=== PATIENT | male | born 1940 | race Caucasian/White ===

== ENCOUNTER 2024-02-12 16:49 | Inpatient (IN) | payer OTHER, SELFPAY ==
[2024-02-12] VITALS (10 sets, daily range): BP systolic 112–155; BP diastolic 72–88; BMI 36.8
[2024-02-12 12:09] LABS: % Basophils 0.4 % (0-2); % Eosinophils 0.5 % (0-6); % Immature Granulocytes 0.4 % (0-0.5); % Monocytes 7.9 % (1.7-9.3); % Neutrophils 78.8 % (42.2-75.2); Absolute Lymphocytes 0.9 10^3/uL (1.2-3.4); Absolute Monocytes 0.6 10^3/uL (0.1-0.6); Absolute Neutrophils 5.8 10^3/uL (1.4-6.5); Hematocrit 37.5 % (39.0-52.0); Hemoglobin 12.8 g/dL (13.0-18.0); Mean Corp Hgb Conc. 34.1 g/dL (33.0-37.0); Mean Corpuscular Hgb 34.2 pg (27.0-31.0); Mean Corpuscular Volume 100.3 fL (80.0-94.0); Mean Platelet Volume 10.2 fL (7.4-10.4); Nucleated Red Blood Cells % 0 % (-); Platelet Count 150 10^3/uL (130-400); Red Blood Cell Count 3.74 10^6/uL (4.70-6.10); Red Cell Dist. Width 12.8 % (11.5-14.5); White Blood Cell Count 7.3 10^3/uL (4.8-10.8)
[2024-02-12 12:32] LABS: ALT (SGPT) 17 U/L (0-50); AST (SGOT) 22 U/L (17-59); Albumin 4.5 g/dl (3.5-5.0); Alkaline Phosphatase 72 U/L (38-126); Blood Urea Nitrogen 20 mg/dl (9-20); Calcium 9.6 mg/dl (8.4-10.2); Carbon Dioxide 22 mmol/L (22-30); Chloride 106 mmol/L (98-107); Glucose 213 mg/dl (70-99); Lipase 144 U/L (23-300); Potassium 4.4 mmol/L (3.5-5.1); Sodium 136 mmol/L (135-145); Total Bilirubin 1.6 mg/dl (0.2-1.3); Total Protein 7.5 g/dl (6.3-8.2); eGFR > 60.00
--- NOTE | 2024-02-12 14:25 | ED.GENMED ---
Addendum entered and electronically signed by Yong Armstrong MD 02/12/24 17:22:
Patient did have 2 further brief pauses with lightheadedness. These were texted to cardiology
Original Note:
History of Present Illness
<JOHNATHON Espinoza Last Filed: 02/12/24 14:47>
General
Chief Complaint: Heart Rate Problem
Source: patient
Exam Limitations: none
Time Seen by Provider: 02/12/24 14:02
Travel History
Have you had any contact with someone who has COVID-19?: No
Do you have any symptoms of coronavirus? Fever > 100 degrees, chills, cough, shortness of breath, sore throat, loss of taste or smell, muscle aches, or headache?: No
History of Present Illness
History of Present Illness:
83 year old male presents with lightheadedness upon awaking this morning with nausea. He had several episodes of vomiting. He had a loose stool earlier this morning. Since waiting in the waiting room he states he feels much better. No chest pain
or shortness of breath. History of hyperlipidemia BPH. He is not anticoagulated. No fevers or cough. No other pains at this time
Past History
<JOHNATHON Espinoza Last Filed: 02/12/24 14:47>
Past History
ED Past Medical History: HTN, Hypercholesterolemia (BPH, renal calculi, arthritis, degenerative joint disease, osteoarthritis, chronic low back pain,) and Other (Kidney stones)
ED Past Surgical History: Appendectomy, Orthopedic (Right total knee) and Other (Bilateral cataracts, kidney stone extraction)
Social History
Tobacco: Non-smoker
Alcohol: Occasional
Drug: None
Personal:
Living: with family
Employment: Employed
Family History
Family History: Other (nc)
Phy Exam
<JOHNATHON Espinoza Last Filed: 02/12/24 14:47>
Physical Exam
Physical Exam:
General: Well-appearing male no acute respiratory distress
HEENT: Normocephalic atraumatic
Heart: Regular rate and rhythm no murmur
Lungs: Clear no wheeze or rales
Abdomen soft nontender nondistended no guarding or rebound normal bowel sounds
Extremities: No cyanosis
Course
<Suresh Adams PA-C - Last Filed: 02/12/24 14:47>
Orders/Labs/Results
Orders:
Orders
02/12/24 11:50
ECG [Electrocardiogram (*1)] Urgent
Reason for Study: Vertigo / Dizzy
EKG- Treatment ONCE
IV Insert/Care/Rem.- Treatment PRN
02/12/24 11:57
Complete Blood Count/With Diff Urgent
Comprehensive Metabolic Panel Urgent
Lipase Urgent
TSH Reflex To Free T4 Urgent
Comment: ADD ON
02/12/24 14:40
Troponin I Urgent
0.9% Sodium Chloride 500 ml [Nss] 500 ml IV BOLUS
02/12/24 14:42
Add On- LAB Urgent
Tests Added?: tsh reflex to t4
Abnormal Lab Results
02/12/24
11:57
RBC 3.74 L 10^6/uL
(4.70-6.10)
Hgb 12.8 L g/dL
(13.0-18.0)
Hct 37.5 L %
(39.0-52.0)
MCV 100.3 H fL
(80.0-94.0)
MCH 34.2 H pg
(27.0-31.0)
Absolute Lymphs (auto) 0.9 L 10^3/uL
(1.2-3.4)
Neutrophils % 78.8 H %
(42.2-75.2)
Lymphocytes % 12.0 L %
(20.5-51.1)
Glucose 213 H mg/dl
(70-99)
Total Bilirubin 1.6 H mg/dl
(0.2-1.3)
02/12/24 11:57
02/12/24 11:57
Vital Signs
Initial and Last Documented VS:
Initial Vital Signs
Temp Pulse Resp BP Pulse Ox
97.8 F 78 18 155/78 99
02/12/24 11:45 02/12/24 11:45 02/12/24 11:45 02/12/24 11:45 02/12/24 11:45
Last Documented Vital Signs
Temp Pulse Resp BP Pulse Ox
97.8 F 78 18 155/78 97
02/12/24 11:45 02/12/24 11:45 02/12/24 11:45 02/12/24 11:45 02/12/24 13:59
<Yong Armstrong MD - Last Filed: 02/12/24 15:04>
Orders/Labs/Results
Orders:
Orders
02/12/24 11:50
ECG [Electrocardiogram (*1)] Urgent
Reason for Study: Vertigo / Dizzy
EKG- Treatment ONCE
IV Insert/Care/Rem.- Treatment PRN
02/12/24 11:57
Complete Blood Count/With Diff Urgent
Comprehensive Metabolic Panel Urgent
Lipase Urgent
TSH Reflex To Free T4 Urgent
Comment: ADD ON
02/12/24 14:40
Troponin I Urgent
0.9% Sodium Chloride 500 ml [Nss] 500 ml IV BOLUS
02/12/24 14:42
Add On- LAB Urgent
Tests Added?: tsh reflex to t4
Abnormal Lab Results
02/12/24
11:57
RBC 3.74 L 10^6/uL
(4.70-6.10)
Hgb 12.8 L g/dL
(13.0-18.0)
Hct 37.5 L %
(39.0-52.0)
MCV 100.3 H fL
(80.0-94.0)
MCH 34.2 H pg
(27.0-31.0)
Absolute Lymphs (auto) 0.9 L 10^3/uL
(1.2-3.4)
Neutrophils % 78.8 H %
(42.2-75.2)
Lymphocytes % 12.0 L %
(20.5-51.1)
Glucose 213 H mg/dl
(70-99)
Total Bilirubin 1.6 H mg/dl
(0.2-1.3)
02/12/24 11:57
02/12/24 11:57
Vital Signs
Initial and Last Documented VS:
Initial Vital Signs
Temp Pulse Resp BP Pulse Ox
97.8 F 78 18 155/78 99
02/12/24 11:45 02/12/24 11:45 02/12/24 11:45 02/12/24 11:45 02/12/24 11:45
Last Documented Vital Signs
Temp Pulse Resp BP Pulse Ox
97.8 F 78 18 155/78 97
02/12/24 11:45 02/12/24 11:45 02/12/24 11:45 02/12/24 11:45 02/12/24 13:59
<Suresh Adams PA-C - Last Filed: 02/12/24 14:47>
MDM/Problems Addressed
Differential Diagnosis Includes:
Lightheaded sensation with nausea and vomiting earlier. No chest pain. While in the room the patient stated he felt lightheaded and there was a visible pause on the monitor. He resumed into a sinus rhythm after the pause. There is no syncopal
episode. Will check labs. Keep on monitor. Start hydration.
<Suresh Adams PA-C - Last Filed: 02/12/24 14:47>
*Critical Care Note
Total Time (30-74mins, 75-104mins- exclusive of procedures): Not Applicable
<Suresh Adams PA-C - Last Filed: 02/12/24 14:47>
Update Note
Update Note:
Patient will be kept on the monitor. He had a 7-second pause that the patient felt as lightheaded and was witnessed by this provider in the room. Discussed with emergency room attending who spoke with cardiology, Dr. Matias, who is aware. Admit
to hospitalist.
ED Attending Note
<Suresh Adams PA-C - Last Filed: 02/12/24 14:47>
-
Portions of this chart may have been created with voice recognition software.� Occasional wrong word or��sound alike� substitutions may have occurred due to the inherent limitations of voice recognition software.
<Yong Armstrong MD - Last Filed: 02/12/24 15:04>
ED Attending Note
Patient seen and examined by attending physician: Yes
I performed the substantive portion of visit, reviewed & personally made and approve the management plan that is documented in note by myself or IRENA.: Yes
ED Attending Note:
83-year-old male with an episode of lightheadedness this morning. Some nausea and vomiting. While in the room with our physician portfolio assistant had prolonged ventricular block probably 7 to 8 seconds. Clinically stable at this time.
Exam: Nontoxic warm and dry grossly nonfocal perfusing well. Regular rate and rhythm with moderate midsystolic murmur. Lungs are clear and equal. Abdomen nontender. Extremity with some superficial varicosities bilaterally and mild nonpitting
edema.
Impression is prolonged high degree heart block. Rhythm strip was texted to cardiology. Patient will be admitted to the medical service with cardiac involvement
Discharge Plan
Departure
Patient Disposition: Admit
Date of Disposition: 02/12/24
Time of Disposition: 14:46
Admit to: Telemetry
Presentation/result/management discussed w/ accepting MD/DO: Hospitalist
Discharge Problem:
Pre-syncope
Prescriptions:
No Action
tamsulosin 0.4 MG capsule
0.4 mg PO DAILY
oxycodone-acetaminophen 5 MG/325 MG tablet
0.5 tab PO DAILY
fluoxetine 20 MG capsule
40 mg PO DAILY
PreserVision AREDS-2 1 EACH capsule
1 ea PO BID
rosuvastatin 5 MG tablet
5 mg PO DAILY
Referrals:
Arron Nye MD [Family Provider] -
Interventions
Interventions:
*Risk Screen - Suicide Last Done: 02/12/24 11:45
*General Assessment Last Done: 02/12/24 11:45
*Neglect/Abuse Screening Last Done: 02/12/24 11:45
ED- Fall Risk Assessment Last Done: 02/12/24 13:59
CW-Tijisn-Sqpojgnlqt Assessment Last Done: 02/12/24 13:59
ED- Cardiac Assessment Last Done: 02/12/24 13:59
ED- Pulmonary Assessment Last Done: 02/12/24 13:59
Discharge Date and Time
Print Language: CZECH
[2024-02-12] MEDS: NSS 500 IV (15:14)
--- NOTE | 2024-02-12 15:54 | HPS.HSE ---
Family Physician
-
Family Physician: Arron Nye
Chief Complaint
-
syncope
History of Present Illness
The patient is an 83 yo male with PMH significant for HTN, HLD, BPH, chronic low back pain with right foot drop, presents to ED due to episode of near-syncope followed by nausea and vomiting, not feeling well. No CP, no palpitations, no recent
weight change, no further vomiting in ED, no abdominal pain, no dysuria, no fevers. He was found to have a 7 second pause in the ED on tele while seeing the PA, and was symptomatic at that time with lightheadedness/dizziness that has resolved.
Cardiology saw pt in ED, and plan will be for pacemaker likely Wednesday, IVU admission recommended.
ED txt: IVF 500 mL
Medical History
Past Medical History
Past Medical History: Reports HTN (Essential), Hypercholesterolemia and Other (BPH, renal calculi, arthritis, degenerative joint disease, osteoarthritis, chronic low back pain, Kidney stones)
Additional Past Medical History:
Echo 12/2022:
Normal left ventricular size and systolic function. No regional wall motion
abnormalities are seen. LV ejection fraction is 65% by Padron's method of
discs. Mild concentric left ventricular hypertrophy. Diastolic function normal.
Mitral valve is thickened and calcified with decreased excursion of leaflets.
Mild mitral stenosis with mean pressure gradient of 4 mmHg. There is mitral
annular calcification. Trace mitral regurgitation.
Calcified, trileaflet aortic valve with decreased excursion of leaflets. Mild
to moderate aortic stenosis. Peak and mean gradients of 34 and 23 mmHg,
respectively. Estimated LESLIE is 1.3 cm2., using an LVOT of 2.0 cm.. Trace aortic
regurgitation.
Past Surgical History: Reports Appendectomy, Orthopedic (right total knee) and Other (Bilateral cataracts, kidney stone extraction)
Social History
Tobacco: Non-smoker
Alcohol: Occasional
Drug: None
Personal:
Living: With Family
Employment: Employed
Family History
Family History: Other (no CAD, no stroke in family)
Allergies / Home Medications
Allergies reflects when Allergies were last updated in [employer].
Home Medications with original date entered in [employer]
Allergy/Medication List:
Allergies
Allergy/AdvReac Type Severity Reaction Status Date / Time
No Known Allergies Allergy Verified 02/12/24 11:45
Home Medications
tamsulosin 0.4 mg capsule 0.4 mg PO DAILY Urinary issue 11/24/18
fluoxetine 20 mg capsule 40 mg PO DAILY 06/13/21
oxycodone-acetaminophen 5 mg-325 mg tablet 0.5 tab PO DAILY 06/13/21
rosuvastatin 5 mg tablet 5 mg PO DAILY 06/13/21
vit C 250 mg-vit E 90 mg-zinc 40 mg-copper 1 [id number] capsule (PreserVision AREDS-2) 1 ea PO BID 06/13/21
Review of Systems
-
A 12 point ROS was completed and negative except as noted: Yes
Physical Exam
Vital Signs
Vital Signs
Temp Pulse Resp BP Pulse Ox
97.8 F 86 21 117/74 95
02/12/24 11:45 02/12/24 15:00 02/12/24 15:00 02/12/24 15:00 02/12/24 15:00
Physical Exam
General: Well Developed, Well Nourished, No Apparent Distress, Comfortable and Conversant
HEENT: NormoCephalic, Anicteric, Moist mucous membranes and Atraumatic
Respiratory: Clear
Cardiac: S1/S2
GI: Soft, Non Tender and Non Distended
Musculoskeletal: No Clubbing, No Cyanosis and No Edema
Skin: Warm and Dry
Neuro: AO x 3 and No Motor Deficits
Laboratory Results
-
02/12/24 11:57
02/12/24 11:57
Laboratory Results
Total Bilirubin 1.6 mg/dl (0.2-1.3) H 02/12/24 11:57
AST 22 U/L (17-59) 02/12/24 11:57
ALT 17 U/L (0-50) 02/12/24 11:57
Alkaline Phosphatase 72 U/L (38-126) 02/12/24 11:57
Lipase 144 U/L (23-300) 02/12/24 11:57
Data Reviewed
-
Medical Tests (Nuc Med, Echo, EKG etc): Image Personally Visualized and interpreted and Report Reviewed by me (RBBB, PACs)
Impression/Plan
-
IMPRESSION:The patient is an 83 yo male with PMH significant for HTN, HLD, BPH, chronic low back pain with right foot drop, presents to ED due to episode of near-syncope followed by nausea and vomiting, not feeling well. No CP, no palpitations, no
recent weight change, no further vomiting in ED, no abdominal pain, no dysuria, no fevers. He was found to have a 7 second pause in the ED on tele while seeing the PA, and was symptomatic at that time with lightheadedness/dizziness that has
resolved. Cardiology saw pt in ED, and plan will be for pacemaker likely Wednesday, IVU admission recommended.
ED txt: IVF 500 mL
#Syncope, symptomatic due to sinus pause
#Sinus pause 7 seconds on tele today
# Advanced primary osteoarthritis of the left knee, status post
left total knee arthroplasty by Dr. Dillan Gonzales on
04/28/2021.
#Chronic low back pain with right foot drop
-cont percocet OP med
#Essential Hypertension, blood pressure stable. monitor
#Childhood asthma , stable
#Chronic kidney disease stage 3, nephrotoxins minimized., Creat 1.1
#Lbb-dakwhlq-sszmseycq diabetes, diet controlled
-SSI, monitor glucose
# BPH with history of urinary retention. - Flomax.
# Anemia of chronic disease, mild. Hemoglobin stable 12.8
PLAN:
-admit to IVU, monitor on tele overnight
-Cardiology consultation appreciated, pacemaker likely Wednesday, NPO p mn tomorrow
-Cardiac diet for now
-Echo, CXR pending
DVT proph-Lovenox
Full Code
[2024-02-12 16:01] LABS: Troponin I 0.021 ng/ml
[2024-02-12 16:58] LABS: TSH Reflex To Free T4 1.61 uIU/ml (0.47-4.68)
--- NOTE | 2024-02-12 17:13 | CON.CAR ---
Consultation
Consultation Request
Date/Time Consultation Requested: 02/12/2024 14:30
Date/Time Consultation Performed: 02/12/2024 16: 30
Requesting Provider: Bonita
Performing Provider: Florencio
Reason for Consultation: Near syncope and sinus pauses
Medical History
-
Chief Complaint: Lightheadedness and nausea
History of Present Illness:
Akil has a history of hypertension, mitral stenosis, aortic stenosis, hyperlipidemia, obesity with probable sleep apnea. He presents complaints of dizziness and near syncope. He was found to have approximately 5 to 6-second pause on monitor and
is admitted. He denies any chest pain or shortness of breath he noted an episode 2 weeks ago with vomiting and severe dizziness. He again had vomiting earlier today with severe dizziness and felt like he might pass out. He has had other episodes
of dizziness as well over the recent weeks. He thought the vomiting might be due to a different type of Percocet
Past Medical History
Past Medical History: HTN, Hypercholesterolemia, Valvular Disease (Mild to moderate aortic stenosis December 2022, mild mitral stenosis December 2022) and Other (History of nephrolithiasis, obesity with probable sleep apnea, anemia)
Past Surgical History: Orthopedic (Left total hip replacement 2007, laminectomy L2, right total knee replacement, left hip replacement, left total knee replacement)
Social History
Tobacco: Non-Smoker
Alcohol: Occasional
Drug: None
Personal:
Living: With Family
Employment: Employed
Family History
Family History: Other (Mother of breast cancer. There is no family history of premature coronary artery disease)
Allergies / Home Medications
Allergy/AdvReac Type Severity Reaction Status Date / Time
No Known Allergies Allergy Verified 02/12/24 11:45
�Medication �Instructions �Recorded �Confirmed �Type
tamsulosin 0.4 mg capsule 0.4 mg PO DAILY Urinary issue 11/24/18 02/12/24 History
fluoxetine 20 mg capsule 40 mg PO DAILY 06/13/21 02/12/24 History
oxycodone-acetaminophen 5 mg-325 0.5 tab PO DAILY 06/13/21 02/12/24 History
mg tablet
rosuvastatin 5 mg tablet 5 mg PO DAILY 06/13/21 02/12/24 History
vit C 250 mg-vit E 90 mg-zinc 40 1 ea PO BID 06/13/21 02/12/24 History
mg-copper 1 co-[id number]-[id number]
capsule (PreserVision AREDS-2)
Review of Systems
-
History Source: Patient
All other systems: Negative unless noted
Constitutional: No Symptoms
EENT: No Symptoms
Respiratory: No Symptoms
Cardiac: Other (Near syncope and dizziness)
Abdomen/GI: Vomiting (Vomiting on 2 different occasions in the past 2 weeks) and Diarrhea (Diarrhea earlier today)
: No Symptoms
Musculoskeletal: No Symptoms
Skin: No Symptoms
Neurological: Other (Tingling in fingers)
Endocrine: No Symptoms
Hematologic/Lymphatic: No Symptoms
Physical Exam
Vital Signs
Temp Pulse Resp BP Pulse Ox
97.8 F 86 21 117/74 95
02/12/24 11:45 02/12/24 15:00 02/12/24 15:00 02/12/24 15:00 02/12/24 15:00
General: Well developed, well nourished in NAD.
Neck: Supple, no JVD, HJR, carotids +2 B/L, no bruits bilaterally.
Heart: Non displaced PMI, RRR, 2/6 basal systolic murmur, No S3, S4, no rubs.
Lungs: Clear to auscultation bilaterally, no wheeze, rhonchi, rubs bilaterally,
normal expiratory phase.
Abdomen: Normal bowel sounds, soft, non-tender, non-distended.
Extremities: No clubbing, cyanosis or edema bilaterally.
Neuro: Grossly nonfocal, awake, alert and oriented x3.
Lab Results
02/12/24 11:57
02/12/24 11:57
Troponin I 0.021 ng/ml 02/12/24 15:16
Impression / Plan
-
Impression:
Near syncope with at least 5 to 6-second pauses noted on monitor
Mild to moderate aortic stenosis December 2022
Mild mitral stenosis December 2022
Right bundle branch block
Hypertension
Hyperlipidemia
Obesity with probable sleep apnea
History of nephrolithiasis
Anemia
Blood sugar of 213 with probable diabetes
Echocardiogram August 2021: Ejection fraction 60 to 65%, mild mitral stenosis with mean gradient of 5 mmHg, moderate aortic stenosis with mean gradient of 21 mmHg
Lexiscan sestamibi stress test September 2021: Fixed basal inferolateral and mid inferolateral defect with no evidence of ischemia, ejection fraction 65%
Echocardiogram 01/06/2023: Ejection fraction 65%, mild concentric LVH, mild mitral stenosis with mean pressure gradient of 4 mmHg, mild to moderate aortic stenosis with mean gradient of 23 mmHg, aortic valve area 1.3 cm�, mildly dilated aortic root
at 3.9
Plan:
He has had episodes of near syncope and had 5 to 6-second pauses noted on monitor in the ER
Some of these symptoms may have been precipitated by vagal events in the setting of vomiting and also was laughing in the emergency room during one of the event
He does however have right bundle branch block and with aortic stenosis likely has some element of conduction disease
He is on no medications to explain his pauses as above
He is felt to have sleep apnea but these did not occur during apneic episodes
He has known mild to moderate aortic stenosis and will recheck echocardiogram
However if echocardiogram is unchanged would proceed with permanent pacer implant on Tuesday 02/13
Explained in detail to patient, , daughter at bedside.
Data Reviewed
-
EKG: Tracing Personally Visualized and interpreted
Medical Tests (Nuc Med, Echo etc): Report Reviewed by me
Labs: Labs Reviewed by me
Old Records: Reviewed
--- NOTE | 2024-02-12 18:28 | PTCARENOTE ---
Assumed care of pt upon tsf from ED. Pt arrives awake and alert, Ox3. VSS, CM shows NSR 80's, POX 95% on RA. Pt denies any pain or discomfort, does still feel a little nauseous, eating crackers. Oriented to room and surroundings.
[2024-02-12] MEDS: LOVENOX 40 MG SC (18:40)
--- NOTE | 2024-02-12 20:03 | PTCARENOTE ---
Patient laughing with his family, 4.2 second pause, felt lightheaded. Symptoms did resolve. Dr. Matias notified, continue monitoring and bedrest.
[2024-02-12] MEDS: OCUVITE SOFTGEL 1 CAP PO (21:16)
--- NOTE | 2024-02-12 21:34 | PTCARENOTE ---
Patient in bed resting. SR on telemetry. Using urinal at bedside. HR, murmur. Pacer pads placed on patient, call quiroga in reach
[2024-02-12 21:39] LABS: Glucose - Point of Care 161 mg/dl (70-99)
[2024-02-13 02:24] VITALS: BP 124/77
[2024-02-13 02:33] VITALS: BMI 36.6
[2024-02-13 03:07] LABS: Hematocrit 34.9 % (39.0-52.0); Hemoglobin 12.1 g/dL (13.0-18.0); Mean Corp Hgb Conc. 34.7 g/dL (33.0-37.0); Mean Corpuscular Hgb 34.2 pg (27.0-31.0); Mean Corpuscular Volume 98.6 fL (80.0-94.0); Mean Platelet Volume 10.6 fL (7.4-10.4); Platelet Count 145 10^3/uL (130-400); Red Blood Cell Count 3.54 10^6/uL (4.70-6.10); Red Cell Dist. Width 12.7 % (11.5-14.5); White Blood Cell Count 5.2 10^3/uL (4.8-10.8)
[2024-02-13 03:15] LABS: INR 1.16; PT 14.6 Sec (11.4-14.6)
[2024-02-13 03:25] LABS: ALT (SGPT) 14 U/L (0-50); AST (SGOT) 22 U/L (17-59); Albumin 3.9 g/dl (3.5-5.0); Alkaline Phosphatase 63 U/L (38-126); Blood Urea Nitrogen 18 mg/dl (9-20); Calcium 9.4 mg/dl (8.4-10.2); Carbon Dioxide 26 mmol/L (22-30); Chloride 106 mmol/L (98-107); Estimated Creatinine Clearance 67 ml/min; Glucose 135 mg/dl (70-99); Potassium 4.1 mmol/L (3.5-5.1); Sodium 139 mmol/L (135-145); Total Bilirubin 1.9 mg/dl (0.2-1.3); Total Protein 6.8 g/dl (6.3-8.2); eGFR > 60.00
[2024-02-13 07:36] VITALS: BP 139/81
[2024-02-13 07:43] LABS: Glucose - Point of Care 158 mg/dl (70-99)
[2024-02-13] MEDS: NOVOLOG FLEXPEN-LOW RESISTANCE 1 UNITS SC (07:55)
[2024-02-13] MEDS: CRESTOR 5 MG PO (07:56)
[2024-02-13] MEDS: OCUVITE SOFTGEL 1 CAP PO ×2 (07:56→19:40)
[2024-02-13] MEDS: PERCOCET 5/325 0.5 TABLET PO (07:57)
[2024-02-13] MEDS: PROZAC 40 MG PO (07:57)
[2024-02-13] MEDS: FLOMAX 0.400000000000000022 MG PO (07:57)
--- NOTE | 2024-02-13 10:01 | W.PN.HOSP.TC ---
Today's Communication/Plan
-
Plan for pacemaker
Assessment / Plan
Assessment / Plan
Physical exam:
General: Well Developed, Well Nourished and No Apparent Distress
HEENT: Normocephalic, Atraumatic and Moist Mucous Membranes
Respiratory: Clear to Auscultation; Negative Wheezes, Rales or Rhonchi
Cardiac: Regular Rhythm and S1/S2
GI: Soft, Nontender and Nondistended
Musculoskeletal: No Clubbing, No Cyanosis and No Edema
Neuro: Awake, Alert and Oriented
Psych: Calm
A/P:
Syncope with cardiac pauses and evidence of sick sinus syndrome with underlying right bundle branch block:
Cardiology consult and follow-up appreciated
Continue cardiac monitoring
Plan for transthoracic echocardiogram tomorrow and if no advancing valvulopathy, plan for permanent pacemaker tomorrow
Mild to moderate aortic stenosis/mild mitral stenosis:
Plan for echocardiogram
Hypertension:
Continue home antihypertensives
Hyperlipidemia:
Continue statin
Obstructive sleep apnea:
CPAP
Chronic kidney disease stage III:
Avoid nephrotoxic
Monitor renal function
Chronic lower back pain and right foot drop:
Continue pain control
Asthma:
Stable
Diabetes mellitus type 2:
Insulin sliding scale
Hemoglobin A1c 6.9
BPH:
Continue Flomax
Anemia chronic disease:
Stable
Continue to monitor
DVT proph-Lovenox
Full Code
Anticipated Discharge: > 48 hours
Subjective/Interval History
-
Date of Service: February 13, 2024
Patient still having cardiac pauses. Patient is in good spirits and making jokes. Denies chest pain or shortness of breath
Objective Data
-
Labs:
Laboratory Results
02/13/24
02:31
WBC 5.2
Hgb 12.1 L
Hct 34.9 L
Plt Count 145
PT 14.6
INR 1.16
Sodium 139
Potassium 4.1
Chloride 106
Carbon Dioxide 26
BUN 18
Creatinine 0.9
Glucose 135 H
Calcium 9.4
Total Bilirubin 1.9 H
AST 22
ALT 14
Alkaline Phosphatase 63
Vital Signs:
Vital Signs
Temp Pulse Resp BP Pulse Ox
98 F 78 20 139/81 95
02/13/24 07:32 02/13/24 07:36 02/13/24 07:32 02/13/24 07:36 02/13/24 07:32
I&O
02/12/24 02/13/24 02/14/24
06:59 06:59 06:59
Output Total 1600 / 1600 350 / 350
Balance -1600 / -1600 -350 / -350
Review of Systems
-
All other systems: Reviewed and negative
[2024-02-13 10:24] LABS: Glycohemoglobin (HgbA1c) 6.9 % (4.0-5.6)
--- NOTE | 2024-02-13 10:42 | PTCARENOTE ---
Assumed care of pt from night RN. Pt received awake and alert, Ox3, VSs, CM shows NSR with some short pauses, POX 95% on RA. Pt for pacemaker tomorrow, pacer pads remain on. Presently he remains pain free, will monitor closely.
--- NOTE | 2024-02-13 11:35 | W.PN.CARDCBS ---
Today's Communication / Plan
-
Permanent pacemaker on 02/13 unless aortic stenosis has progressed significantly on echocardiogram
Impression / Plan
-
Impression:
Near syncope with at least 5 to 6-second pauses noted on monitor
Mild to moderate aortic stenosis December 2022
Mild mitral stenosis December 2022
Right bundle branch block
Hypertension
Hyperlipidemia
Obesity with probable sleep apnea
History of nephrolithiasis
Anemia
Blood sugar of 213 with probable diabetes
Echocardiogram August 2021: Ejection fraction 60 to 65%, mild mitral stenosis with mean gradient of 5 mmHg, moderate aortic stenosis with mean gradient of 21 mmHg
Lexiscan sestamibi stress test September 2021: Fixed basal inferolateral and mid inferolateral defect with no evidence of ischemia, ejection fraction 65%
Echocardiogram 01/06/2023: Ejection fraction 65%, mild concentric LVH, mild mitral stenosis with mean pressure gradient of 4 mmHg, mild to moderate aortic stenosis with mean gradient of 23 mmHg, aortic valve area 1.3 cm�, mildly dilated aortic root
at 3.9
Plan:
He continues to have symptomatic pauses
Will check echocardiogram and if aortic stenosis has not progressed significantly we will plan on permanent pacer on Tuesday 02/13
Discussed with nursing. Patient should use bedside commode
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
Subjective
Date of Service: February 13, 2024
No complaints
Objective
Labs:
02/13/24 02:31
02/13/24 02:31
Labs
Hgb 12.1 g/dL (13.0-18.0) L 02/13/24 02:31
Hct 34.9 % (39.0-52.0) L 02/13/24 02:31
Plt Count 145 10^3/uL (130-400) 02/13/24 02:31
PT 14.6 Sec (11.4-14.6) 02/13/24 02:31
INR 1.16 02/13/24 02:31
Sodium 139 mmol/L (135-145) 02/13/24 02:31
Potassium 4.1 mmol/L (3.5-5.1) 02/13/24 02:31
BUN 18 mg/dl (9-20) 02/13/24 02:31
Creatinine 0.9 mg/dL (0.7-1.3) 02/13/24 02:31
Glucose 135 mg/dl (70-99) H 02/13/24 02:31
Troponins
02/12/24
15:16
Troponin I 0.021
Vital Signs and I&O:
Vital Signs
Temp Pulse Resp BP Pulse Ox
98 F 78 20 139/81 95
02/13/24 07:32 02/13/24 07:36 02/13/24 07:32 02/13/24 07:36 02/13/24 10:37
Vital Signs
Temp Pulse Resp BP Pulse Ox
98 F 78 20 139/81 95
02/13/24 07:32 02/13/24 07:36 02/13/24 07:32 02/13/24 07:36 02/13/24 10:37
Intake & Output
02/11/24 02/12/24 02/13/24 02/14/24
06:59 06:59 06:59 06:59
Output Total 1600 / 1600 350 / 350
Balance -1600 / -1600 -350 / -350
Physical Exam
Physical Exam
General: Well developed, well nourished in NAD.
Neck: Supple, no JVD, HJR, carotids +2 B/L, no bruits bilaterally.
Heart: Non displaced PMI, RRR, 2/6 basal systolic murmur, No S3, S4, no rubs.
Lungs: Clear to auscultation bilaterally, no wheeze, rhonchi, rubs bilaterally,
normal expiratory phase.
Extremities: No clubbing, cyanosis or edema bilaterally.
Neuro: Grossly nonfocal, awake, alert and oriented x3.
[2024-02-13 11:53] VITALS: BP 122/78
[2024-02-13 12:44] LABS: Glucose - Point of Care 127 mg/dl (70-99)
[2024-02-13] MEDS: NOVOLOG FLEXPEN-LOW RESISTANCE SC (12:45)
[2024-02-13 15:59] VITALS: BP 126/73
[2024-02-13] MEDS: NOVOLOG FLEXPEN-LOW RESISTANCE 2 UNITS SC (16:58)
[2024-02-13 16:59] LABS: Glucose - Point of Care 226 mg/dl (70-99)
[2024-02-13] MEDS: LOVENOX 40 MG SC (18:18)
[2024-02-13 18:50] VITALS: BP 106/71
--- NOTE | 2024-02-13 20:00 | PTCARENOTE ---
Patient received in bed, AAOX3, offers no complaints. NSR on monitor, blood pressure as documented. Weak but palpable pulses. Lungs diminished, pulse ox 95% on room air. Abdomen round obese with positive bowel sounds. Voiding. #20 g in RAC
flushed and patent, plan of care discussed, call quiroga within reach
[2024-02-13 21:49] LABS: Glucose - Point of Care 135 mg/dl (70-99)
[2024-02-13 22:37] VITALS: BP 120/65
[2024-02-14 04:46] VITALS: BP 121/73
[2024-02-14 05:14] LABS: Hematocrit 35.4 % (39.0-52.0)
[2024-02-14 05:25] VITALS: BMI 36.8
--- NOTE | 2024-02-14 05:26 | PTCARENOTE ---
Chest clipped, CHG, new left arm PIV placed
[2024-02-14 05:38] LABS: Blood Urea Nitrogen 16 mg/dl (9-20); Calcium 8.9 mg/dl (8.4-10.2); Carbon Dioxide 27 mmol/L (22-30); Chloride 106 mmol/L (98-107); Estimated Creatinine Clearance 68 ml/min; Glucose 123 mg/dl (70-99); Potassium 4.2 mmol/L (3.5-5.1); Sodium 135 mmol/L (135-145); eGFR > 60.00
[2024-02-14 08:28] VITALS: BP 127/87
--- NOTE | 2024-02-14 09:03 | W.PN.HOSP.TC ---
Today's Communication/Plan
-
Plan for echocardiogram and possible pacemaker.
Assessment / Plan
Assessment / Plan
Physical exam:
General: Well Developed, Well Nourished and No Apparent Distress
HEENT: Normocephalic, Atraumatic and Moist Mucous Membranes
Respiratory: Clear to Auscultation; Negative Wheezes, Rales or Rhonchi
Cardiac: Regular Rhythm and S1/S2
GI: Soft, Nontender and Nondistended
Musculoskeletal: No Clubbing, No Cyanosis and No Edema
Neuro: Awake, Alert and Oriented
Psych: Calm
A/P:
Syncope with cardiac pauses and evidence of sick sinus syndrome with underlying right bundle branch block:
Cardiology consult and follow-up appreciated
Continue cardiac monitoring
Plan for transthoracic echocardiogram today and if no advancing valvulopathy, plan for permanent pacemaker
Mild to moderate aortic stenosis/mild mitral stenosis:
Plan for echocardiogram
Hypertension:
Continue home antihypertensives
Hyperlipidemia:
Continue statin
Obstructive sleep apnea:
CPAP
Chronic kidney disease stage III:
Avoid nephrotoxic
Monitor renal function
Chronic lower back pain and right foot drop:
Continue pain control
Asthma:
Stable
Diabetes mellitus type 2:
Insulin sliding scale
Hemoglobin A1c 6.9
BPH:
Continue Flomax
Anemia chronic disease:
Stable
Continue to monitor
DVT proph-Lovenox
Full Code
Anticipated Discharge: 24 - 48 hours
Subjective/Interval History
-
Date of Service: February 14, 2024
Patient denies any chest pain or shortness of breath today. Continues to have cardiac pauses.
Objective Data
-
Labs:
Laboratory Results
02/14/24
04:56
Hgb 12.0 L
Hct 35.4 L
Sodium 135
Potassium 4.2
Chloride 106
Carbon Dioxide 27
BUN 16
Creatinine 0.9
Glucose 123 H
Calcium 8.9
Vital Signs:
Vital Signs
Temp Pulse Resp BP Pulse Ox
97.8 F 80 18 121/73 98
02/14/24 08:40 02/14/24 05:00 02/14/24 08:40 02/14/24 04:46 02/14/24 08:40
I&O
02/13/24 02/14/24 02/15/24
06:59 06:59 06:59
Output Total 1600 / 1600 900 / 900
Balance -1600 / -1600 -900 / -900
[2024-02-14] MEDS: NOVOLOG FLEXPEN-LOW RESISTANCE SC ×3 (09:18→17:39)
[2024-02-14] MEDS: FLOMAX 0.400000000000000022 MG PO (09:20)
[2024-02-14] MEDS: PERCOCET 5/325 PO (09:20)
[2024-02-14] MEDS: OCUVITE SOFTGEL 1 CAP PO ×2 (09:21→20:19)
[2024-02-14 09:23] LABS: Glucose - Point of Care 119 mg/dl (70-99)
[2024-02-14 11:17] VITALS: BP 117/92
--- NOTE | 2024-02-14 11:53 | W.PN.CARDCBS ---
Addendum entered and electronically signed by Laura Burr MD 02/14/24 12:31:
I saw and examined the patient.
The Stab Setter And Driller's note was reviewed and I agree with the note.
Comment: Echocardiogram reviewed with normal LV function and moderate aortic valve stenosis. Continue to follow as an outpatient.
Clinically stable. Plan for pacemaker tomorrow AM. Discussed at length with patient.
Original Note:
Today's Communication / Plan
-
NPO at midnight
PPM in AM 02/14
Impression / Plan
-
PCP: Dr. Gifford
Inside Sales Director: Dr. Johnson
Impression:
Near syncope w/ 5 to 6-second pauses noted on monitor
Moderate by echo 02/14/2024
Mild MS by echo 02/14/2024
RBBB
Hypertension
Hyperlipidemia
Obesity w/ probable sleep apnea
h/o nephrolithiasis
Anemia
A1c 6.9%, consistent w/ DM
Lexiscan stress test 09/2021: Fixed basal inferolateral and mid inferolateral defect with no evidence of ischemia, ejection fraction 65%
Echo 08/2021: E 60 to 65%, mild mitral stenosis with mean gradient of 5 mmHg, moderate aortic stenosis with mean gradient of 21 mmHg
Echo 01/06/2023: EF 65%, mild concentric LVH, mild mitral stenosis with mean pressure gradient of 4 mmHg, mild to moderate aortic stenosis with mean gradient of 23 mmHg, aortic valve area 1.3 cm�, mildly dilated aortic root at 3.9
Echo 02/14/2024: EF 55-60%, mild cLVH, mild MS w/ mean gradient 4mmHg, mild MR, moderate w/ peak/mean gradients 45/27 mmHg, LESLIE 0.9 cm2, trace AI
Plan:
-Presented with near syncope in the setting of 5-6 second pauses.
-Plan is for PPM in AM 02/14. Will [address] diet for now. NPO at midnight.
-Echo 02/13 with preserved EF and overall stable valves.
-No complaints currently.
-Continue rosuvastatin.
-Hgb A1c 6.9%, consistent with DM. Defer management to primary service.
Progress Note - Inside Sales Director
Subjective
Date of Service: February 14, 2024
No complaints. Feeling well.
Objective
Labs:
02/14/24 04:56
02/14/24 04:56
Labs
Hgb 12.0 g/dL (13.0-18.0) L 02/14/24 04:56
Hct 35.4 % (39.0-52.0) L 02/14/24 04:56
Plt Count 145 10^3/uL (130-400) 02/13/24 02:31
PT 14.6 Sec (11.4-14.6) 02/13/24 02:31
INR 1.16 02/13/24 02:31
Sodium 135 mmol/L (135-145) 02/14/24 04:56
Potassium 4.2 mmol/L (3.5-5.1) 02/14/24 04:56
BUN 16 mg/dl (9-20) 02/14/24 04:56
Creatinine 0.9 mg/dL (0.7-1.3) 02/14/24 04:56
Glucose 123 mg/dl (70-99) H 02/14/24 04:56
Troponins
02/12/24
15:16
Troponin I 0.021
Vital Signs and I&O:
Vital Signs
Temp Pulse Resp BP Pulse Ox
98.2 F 70 20 127/87 97
02/14/24 11:20 02/14/24 10:00 02/14/24 11:20 02/14/24 08:28 02/14/24 11:20
Vital Signs
Temp Pulse Resp BP Pulse Ox
98.2 F 70 20 127/87 97
02/14/24 11:20 02/14/24 10:00 02/14/24 11:20 02/14/24 08:28 02/14/24 11:20
Intake & Output
02/12/24 02/13/24 02/14/24 02/15/24
06:59 06:59 06:59 06:59
Output Total 1600 / 1600 900 / 900 200 / 200
Balance -1600 / -1600 -900 / -900 -200 / -200
Physical Exam
Physical Exam
GEN: No distress, awake, alert, oriented x3
HEENT: supple, anicteric, mmm
LUNGS: CTA b/l, no wheezes/rales
CV: Reg, S1/S2, 2/6 syst murmur
EXT: No clubbing, cyanosis, or edema
NEURO: Gross non-focal
SKIN: War, dry, no rash
[2024-02-14 12:08] LABS: Glucose - Point of Care 130 mg/dl (70-99)
--- NOTE | 2024-02-14 12:27 | CM ---
spoke to pt in room, he is prev indep, lives with his in a 2 story home with no steps to enter. he denies any dc planning needs or dme's. plan is for dc to home when medically stable.
[2024-02-14] MEDS: CRESTOR 5 MG PO (13:58)
[2024-02-14] MEDS: PROZAC 40 MG PO (13:58)
[2024-02-14 16:09] VITALS: BP 116/77
[2024-02-14 17:27] LABS: Glucose - Point of Care 138 mg/dl (70-99)
[2024-02-14] MEDS: SENOKOT-S 1 TABLET PO (17:39)
[2024-02-14 19:21] VITALS: BP 123/74
[2024-02-14] MEDS: LOVENOX 40 MG SC (20:20)
[2024-02-14 21:49] LABS: Glucose - Point of Care 153 mg/dl (70-99)
[2024-02-14 23:00] VITALS: BP 125/78
[2024-02-15] VITALS (10 sets, daily range): BP systolic 102–132; BP diastolic 64–89
[2024-02-15 05:18] LABS: Hematocrit 34.4 % (39.0-52.0); Hemoglobin 11.8 g/dL (13.0-18.0); Mean Corp Hgb Conc. 34.3 g/dL (33.0-37.0); Mean Corpuscular Hgb 34.4 pg (27.0-31.0); Mean Corpuscular Volume 100.3 fL (80.0-94.0); Mean Platelet Volume 10.2 fL (7.4-10.4); Platelet Count 137 10^3/uL (130-400); Red Blood Cell Count 3.43 10^6/uL (4.70-6.10); Red Cell Dist. Width 12.8 % (11.5-14.5); White Blood Cell Count 5.9 10^3/uL (4.8-10.8)
--- NOTE | 2024-02-15 05:24 | PTCARENOTE ---
Tele monitor shows SR w/ occasional PVCs. Denies any pain or discomfort. Aware to maintain NPO status at midnight. Call quiroga in reach.
[2024-02-15 05:41] LABS: Blood Urea Nitrogen 24 mg/dl (9-20); Calcium 9.1 mg/dl (8.4-10.2); Carbon Dioxide 25 mmol/L (22-30); Chloride 106 mmol/L (98-107); Estimated Creatinine Clearance 61 ml/min; Glucose 130 mg/dl (70-99); Potassium 4.3 mmol/L (3.5-5.1); Sodium 136 mmol/L (135-145); eGFR > 60.00
[2024-02-15 06:08] LABS: Glucose - Point of Care 133 mg/dl (70-99)
[2024-02-15] MEDS: NOVOLOG FLEXPEN-LOW RESISTANCE SC ×2 (06:09→13:20)
--- NOTE | 2024-02-15 08:08 | W.PN.HOSP.TC ---
Today's Communication/Plan
-
Plan for pacemaker today.
Assessment / Plan
Assessment / Plan
Physical exam:
General: Well Developed, Well Nourished and No Apparent Distress
HEENT: Normocephalic, Atraumatic and Moist Mucous Membranes
Respiratory: Clear to Auscultation; Negative Wheezes, Rales or Rhonchi
Cardiac: Regular Rhythm and S1/S2
GI: Soft, Nontender and Nondistended
Musculoskeletal: No Clubbing, No Cyanosis and No Edema
Neuro: Awake, Alert and Oriented
Psych: Calm
Echocardiogram:
Normal left ventricular size and systolic function. No regional wall motion
abnormalities are seen. LV ejection fraction is 55-60% by visual assessment.
Mild concentric left ventricular hypertrophy.
Indexed LA volume is severely abnormal (> 48 mL/m2).
Mild mitral stenosis. Mean gradient is 4mmHg. The valve area by pressure half
time is 2.1cm sq.
Mild mitral regurgitation.
Moderate aortic stenosis. Peak/mean gradients are 45/27mmHg. The valve area by
continuity equation is 0.9cm sq, using a LVOT of 2.0cm. Trace aortic
regurgitation.
Compared to prior echocardiogram from January 06 2023 degree of aortic stenosis
has worsened somewhat. Previously peak and mean gradients of 34 and 23 mmHg
with an estimated aortic valve area of 1.3 cm2. There is no change in the
mitral valve gradient. The left atrium is now also dilated.
A/P:
Syncope with cardiac pauses and sinus bradycardia with evidence of sinus node dysfunction and underlying right bundle branch block:
Cardiology consult and follow-up appreciated
Continue cardiac monitoring
Plan for permanent pacemaker today
Discharge planning once cleared by cardiology
Mild to moderate aortic stenosis/mild mitral stenosis:
Reviewed echocardiogram results as above.
Hypertension:
Continue home antihypertensives
Hyperlipidemia:
Continue statin
Obstructive sleep apnea:
CPAP
Chronic kidney disease stage III:
Avoid nephrotoxic
Monitor renal function
Chronic lower back pain and right foot drop:
Continue pain control
Asthma:
Stable
Diabetes mellitus type 2:
Insulin sliding scale
Hemoglobin A1c 6.9
BPH:
Continue Flomax
Anemia chronic disease:
Stable
Continue to monitor
DVT proph-Lovenox
Full Code
Anticipated Discharge: 24 - 48 hours
Subjective/Interval History
-
Date of Service: February 15, 2024
Patient denies chest pain or shortness of breath. Denies syncope. He remains in good spirits making jokes.
Objective Data
-
Labs:
Laboratory Results
02/15/24
04:38
WBC 5.9
Hgb 11.8 L
Hct 34.4 L
Plt Count 137
Sodium 136
Potassium 4.3
Chloride 106
Carbon Dioxide 25
BUN 24 H
Creatinine 1.0
Glucose 130 H
Calcium 9.1
Vital Signs:
Vital Signs
Temp Pulse Resp BP Pulse Ox
98.2 F 83 18 129/80 95
02/15/24 07:14 02/15/24 07:14 02/15/24 07:14 02/15/24 04:30 02/15/24 07:14
I&O
02/14/24 02/15/24 02/16/24
06:59 06:59 06:59
Output Total 900 / 900 650 / 650
Balance -900 / -900 -650 / -650
Review of Systems
-
All other systems: Reviewed and negative
--- NOTE | 2024-02-15 10:48 | ITS.CL.PACE ---
Curling Machine Operator - Pacemaker Implant
Pacemaker Implant
Procedure Report:
PACEMAKER IMPLANT REPORT
Primary Logistics Vice President: Dr Marti Johnson
Date of Procedure: February 15, 2024
Procedure:
Implantation of dual-chamber permanent pacemaker utilizing the left bundle branch for conduction system pacing
Indication/Diagnosis:
1:Non-reversible symptomatic bradycardia due to sinus node dysfunction.
After informed consent was obtained, 'time out' was called and confirmed, the patient was prepped and draped in a sterile fashion. Lidocaine with epi was used for local anesthesia. Central venous access was obtained via subclavian venipuncture. An
incision was made along the left chest and a pre-pectoral pocket was formed. Using a Seldinger technique and peel-away sheaths, the pacing leads were placed under fluoroscopic guidance.
Fluoroscopy was used to determine likely anatomic site for left bundle branch pacing. The TuneUptronic C315 sheath was used to deliver the Medtronic 3830 Selectsecure pacing lead with the helix exposed just exposed from the sheath tip during continuous
monitoring when pacemapping the septum during gentle clockwise rotation to obtain a paced QRS morphology of a W pattern in lead V1. Once the suspected optimal site was identified, lead deployment was performed with several rapid rotations as paced
QRS morphology was intermittently monitored until a paced QRS complex in lead V1 demonstrated development of an R wave (qR or rSR).
Unipolar pacing impedance dropped by approximately 100-200 ohms suggesting it had reached the left ventricular subendocardial.
Stable VEgm injury current is present throughout lead position and at end of case suggesting there was no perforation through the septum into the LV cavity.
Final unipolar pacing impedance is 1100 Ohms
Unipolar pacing threshold is stable at 1 V @0.4ms.
Final conduction system paced QRS complex duration is 106 ms
LVAT is 56 ms and peak V5 -> peak V1 timing is 42 ms
Once testing (see below) showed adequate and stable function, the leads were secured using the suture sleeves. The pocket was liberally irrigated with antibiotic solution. The leads were connected to the generator header and the leads and
generator were placed within the pocket. Fluoroscopy confirmed stable lead position. The pocket was closed in the typical fashion.
IMPLANTS:
Medtronic [id number], SN: [id number], Left Pectoral
RA: Medtronic 5076-45, SN: [id number] , RAA
RV: Medtronic 3830 , SN:[id number], Interventricular septum at LBB
DEVICE TESTING:
Sensing: RA 2 mV, RV 6.3 mV
Capture: RA 0.8 V@0.4ms, RV 0.8 V@0.4ms
Ohms: RA 703 , RV 893
FINAL PROGRAMMING
Timothy Pacing: AAIR+ 60-130 ppm
COMPLICATIONS:
None
CONCLUSIONS:
1: Successful implant of dual chamber permanent pacemaker utilizing Left Bundle Branch conduction system capture for pacing.
RECOMMENDATIONS:
1. Post-op care (tele, CXR, IV abx)
2. In-Office wound check in 5-7 days
Copy to: Dr Marti Johnson
[2024-02-15 12:02] LABS: Glucose - Point of Care 112 mg/dl (70-99)
[2024-02-15] MEDS: CRESTOR 5 MG PO (13:03)
[2024-02-15] MEDS: FLOMAX 0.400000000000000022 MG PO (13:03)
[2024-02-15] MEDS: OCUVITE SOFTGEL 1 CAP PO ×2 (13:03→20:26)
[2024-02-15] MEDS: PROZAC 40 MG PO (13:03)
[2024-02-15] MEDS: MIRALAX 17 GRAMS PO (13:10)
[2024-02-15] MEDS: PERCOCET 5/325 0.5 TABLET PO (13:20)
--- NOTE | 2024-02-15 13:46 | PTCARENOTE ---
Received pt from the cardiac catheterization technician, post PPM. VSS. Pt AAO x 3. Pt denies any discomfort. CXR obtained in department. Will monitor.
[2024-02-15 17:30] LABS: Glucose - Point of Care 181 mg/dl (70-99)
[2024-02-15] MEDS: NOVOLOG FLEXPEN-LOW RESISTANCE 1 UNITS SC (17:50)
[2024-02-15] MEDS: ANCEF 5 IV (17:52)
[2024-02-15] MEDS: LOVENOX 40 MG SC (18:49)
[2024-02-15] MEDS: TYLENOL 650 MG PO (20:32)
[2024-02-15] MEDS: ZADITOR 1 DROP OPHTH (20:33)
[2024-02-15 22:18] LABS: Glucose - Point of Care 122 mg/dl (70-99)
--- NOTE | 2024-02-16 00:22 | PTCARENOTE ---
Pt rec'd at change of shift awake,alert oob ambulating with guided assist to bathroom. Left ant chest pacer site with pressure drsg intact and immobilizer in use. Medicated with Tylenol for 3 out of 10 discomfort at pacer site
[2024-02-16 03:19] VITALS: BP 115/72
[2024-02-16] MEDS: ANCEF 5 IV (03:22)
[2024-02-16 04:01] LABS: Hematocrit 36.4 % (39.0-52.0); Hemoglobin 12.2 g/dL (13.0-18.0); Mean Corp Hgb Conc. 33.5 g/dL (33.0-37.0); Mean Corpuscular Hgb 34.5 pg (27.0-31.0); Mean Corpuscular Volume 102.8 fL (80.0-94.0); Mean Platelet Volume 10.3 fL (7.4-10.4); Platelet Count 132 10^3/uL (130-400); Red Blood Cell Count 3.54 10^6/uL (4.70-6.10); Red Cell Dist. Width 12.6 % (11.5-14.5); White Blood Cell Count 5.9 10^3/uL (4.8-10.8)
[2024-02-16 04:36] LABS: Blood Urea Nitrogen 23 mg/dl (9-20); Calcium 9.2 mg/dl (8.4-10.2); Carbon Dioxide 26 mmol/L (22-30); Chloride 104 mmol/L (98-107); Estimated Creatinine Clearance 61 ml/min; Glucose 128 mg/dl (70-99); Magnesium 2.1 mg/dl (1.6-2.3); Potassium 4.6 mmol/L (3.5-5.1); Sodium 137 mmol/L (135-145); eGFR > 60.00
--- NOTE | 2024-02-16 05:45 | PTCARENOTE ---
Pt reports having slept well. No c/o pain at present. Left ant chest pacer site with DDI and immobilizer in place. Rare paced beat noted
[2024-02-16 06:00] VITALS: BMI 36.5
[2024-02-16] MEDS: TYLENOL 650 MG PO (06:47)
[2024-02-16 07:35] VITALS: BP 119/61
[2024-02-16 07:37] LABS: Glucose - Point of Care 130 mg/dl (70-99)
[2024-02-16] MEDS: NOVOLOG FLEXPEN-LOW RESISTANCE SC ×2 (07:54→12:20)
--- NOTE | 2024-02-16 08:04 | W.PN.CARDCBS ---
Addendum entered and electronically signed by Yong Burr MD 02/16/24 09:37:
Patient seen, interviewed and examined by me.
Well-appearing, no acute distress
Dressing left upper chest is clean and dry.
Regular rate and rhythm with normal S1 and S2, no S3 no S4. There is a grade 1/6 apical holosystolic murmur and no rubs. PMI is normally placed.
Lungs are clear to auscultation bilaterally without wheezes rales or rhonchi.
Abdomen soft nontender nondistended with normoactive bowel sounds
Extremities show trace pretibial edema bilaterally no clubbing or cyanosis.
Neurologic exam is grossly nonfocal.
Agree with advanced practice professionals assessment and plan as noted below.
He is a well after pacemaker implantation yesterday. I reviewed discharge instructions including or motion restrictions with him in detail and all of his questions have been answered.
From a cardiology standpoint he is stable for discharge today.
Original Note:
Today's Communication / Plan
-
doing well s/p PPM 02/14
hgb stable
reviewed activity restrictions/limitations with patient
ok for DC to home today
OP cardiac follow up arranged
Impression / Plan
-
PCP: Dr. Gifford
Prep Person: Dr. Johnson
Impression:
Near syncope w/ 5 to 6-second pauses noted on monitor
Moderate by echo 02/14/2024
Mild MS by echo 02/14/2024
RBBB
Hypertension
Hyperlipidemia
Obesity w/ probable sleep apnea
h/o nephrolithiasis
Anemia
A1c 6.9%, consistent w/ DM
Lexiscan stress test 09/2021: Fixed basal inferolateral and mid inferolateral defect with no evidence of ischemia, ejection fraction 65%
Echo 08/2021: E 60 to 65%, mild mitral stenosis with mean gradient of 5 mmHg, moderate aortic stenosis with mean gradient of 21 mmHg
Echo 01/06/2023: EF 65%, mild concentric LVH, mild mitral stenosis with mean pressure gradient of 4 mmHg, mild to moderate aortic stenosis with mean gradient of 23 mmHg, aortic valve area 1.3 cm�, mildly dilated aortic root at 3.9
Echo 02/14/2024: EF 55-60%, mild cLVH, mild MS w/ mean gradient 4mmHg, mild MR, moderate w/ peak/mean gradients 45/27 mmHg, LESLIE 0.9 cm2, trace AI
Plan:
-Presented with near syncope in the setting of 5-6 second pauses.
-s/p Medtronic DC PPM 02/15/24
-feeling well overnight, without issues
-in SR with RBBB by EKG
-hgb stable
-CXR without PTX
-pressure dressing removed, L chest site appears stable
-echo 02/13 with preserved EF. will need continued OP follow up of mod
-reviewed activity restrictions and limitations with patient
-wound check appt scheduled
-ok for DC to home today
-d/w nursing
Progress Note - Prep Person
Subjective
Date of Service: February 16, 2024
feeling well overnight. no issues
Objective
Labs:
02/16/24 03:39
02/16/24 03:39
Labs
Hgb 12.2 g/dL (13.0-18.0) L 02/16/24 03:39
Hct 36.4 % (39.0-52.0) L 02/16/24 03:39
Plt Count 132 10^3/uL (130-400) 02/16/24 03:39
PT 14.6 Sec (11.4-14.6) 02/13/24 02:31
INR 1.16 02/13/24 02:31
Sodium 137 mmol/L (135-145) 02/16/24 03:39
Potassium 4.6 mmol/L (3.5-5.1) 02/16/24 03:39
BUN 23 mg/dl (9-20) H 02/16/24 03:39
Creatinine 1.0 mg/dL (0.7-1.3) 02/16/24 03:39
Glucose 128 mg/dl (70-99) H 02/16/24 03:39
Vital Signs and I&O:
Vital Signs
Temp Pulse Resp BP Pulse Ox
97.7 F 77 20 119/61 94
02/16/24 07:33 02/16/24 07:35 02/16/24 07:33 02/16/24 07:35 02/16/24 07:33
Vital Signs
Temp Pulse Resp BP Pulse Ox
97.7 F 77 20 119/61 94
02/16/24 07:33 02/16/24 07:35 02/16/24 07:33 02/16/24 07:35 02/16/24 07:33
Intake & Output
02/14/24 02/15/24 02/16/24 02/17/24
07:59 07:59 07:59 07:59
Output Total 900 / 900 650 / 650 1300 / 1300
Balance -900 / -900 -650 / -650 -1300 / -1300
Physical Exam
Physical Exam
GEN: No distress, awake, alert, oriented x3. sitting in chair. obese
HEENT: supple, anicteric, mmm, eomi
LUNGS: CTA B/L, no wheezes/rales
CV: Reg, S1/S2, 2/6 syst LSB
ABD: soft, BS+, NT/ND
EXT: No cyanosis, clubbing, edema
NEURO: Gross non-focal
SKIN: Warm, pink, dry. No rash. L chest site c/d/i.
--- NOTE | 2024-02-16 08:13 | PTCARENOTE ---
Rec'd pt from prev nsg shift AAOx3 w/no c/o CP, but mildly SOB w/activity, which pt states is his baseline. L chest wall dressing C/D/I. Pt reporting improved pain relief from PO Tylenol administered by previous nsg shift. Pt anticipating D/C this
AM. Pt w/call quiroga within reach & plan of care ongoing.
[2024-02-16] MEDS: CRESTOR 5 MG PO (08:56)
[2024-02-16] MEDS: FLOMAX 0.400000000000000022 MG PO (08:56)
[2024-02-16] MEDS: PERCOCET 5/325 0.5 TABLET PO (08:56)
[2024-02-16] MEDS: OCUVITE SOFTGEL 1 CAP PO (08:56)
[2024-02-16] MEDS: PROZAC 40 MG PO (08:57)
[2024-02-16] MEDS: ZADITOR 1 DROP OPHTH (08:57)
--- NOTE | 2024-02-16 09:55 | W.PN.HOSP.TC ---
Today's Communication/Plan
-
DC home
Outpatient cardiology follow-up
Assessment / Plan
Assessment / Plan
Physical exam:
General: Well Developed, Well Nourished and No Apparent Distress
HEENT: Normocephalic, Atraumatic and Moist Mucous Membranes
Respiratory: Clear to Auscultation; Negative Wheezes, Rales or Rhonchi
Cardiac: Regular Rhythm and S1/S2, pacemaker site noted.
GI: Soft, Nontender and Nondistended
Musculoskeletal: No Clubbing, No Cyanosis and No Edema
Neuro: Awake, Alert and Oriented
Psych: Calm
Echocardiogram:
Normal left ventricular size and systolic function. No regional wall motion
abnormalities are seen. LV ejection fraction is 55-60% by visual assessment.
Mild concentric left ventricular hypertrophy.
Indexed LA volume is severely abnormal (> 48 mL/m2).
Mild mitral stenosis. Mean gradient is 4mmHg. The valve area by pressure half
time is 2.1cm sq.
Mild mitral regurgitation.
Moderate aortic stenosis. Peak/mean gradients are 45/27mmHg. The valve area by
continuity equation is 0.9cm sq, using a LVOT of 2.0cm. Trace aortic
regurgitation.
Compared to prior echocardiogram from January 06 2023 degree of aortic stenosis
has worsened somewhat. Previously peak and mean gradients of 34 and 23 mmHg
with an estimated aortic valve area of 1.3 cm2. There is no change in the
mitral valve gradient. The left atrium is now also dilated.
A/P:
Syncope with cardiac pauses and sinus bradycardia with evidence of sinus node dysfunction and underlying right bundle branch block:
Cardiology consult and follow-up appreciated
Continue cardiac monitoring
Status post pacemaker implantation on 02/14. Postop doing well. Cleared by Cardiology for discharge.
Mild to moderate aortic stenosis/mild mitral stenosis:
Reviewed echocardiogram results as above.
Hypertension:
Continue home antihypertensives
Hyperlipidemia:
Continue statin
Obstructive sleep apnea:
CPAP
Chronic kidney disease stage III:
Avoid nephrotoxic
Monitor renal function
Chronic lower back pain and right foot drop:
Continue pain control
Asthma:
Stable
Diabetes mellitus type 2:
Insulin sliding scale
Hemoglobin A1c 6.9
BPH:
Continue Flomax
Anemia chronic disease:
Stable
Continue to monitor
DVT proph-Lovenox
Full Code
More than 30 minutes spent in discharge including
Final examination of the patient
Summarizing hospital stay
Instructions for continuing care to all relevant caregivers
Preparation of discharge records, prescriptions, and referral forms
Total time spent (in minutes): 45
Anticipated Discharge: Today
Subjective/Interval History
-
Date of Service: February 16, 2024
feeling better
Denies any chest pain or shortness of breath
States of chronic shoulder pain on the left side
Objective Data
-
Labs:
Laboratory Results
02/16/24
03:39
WBC 5.9
Hgb 12.2 L
Hct 36.4 L
Plt Count 132
Sodium 137
Potassium 4.6
Chloride 104
Carbon Dioxide 26
BUN 23 H
Creatinine 1.0
Glucose 128 H
Calcium 9.2
Vital Signs:
Vital Signs
Temp Pulse Resp BP Pulse Ox
97.7 F 77 20 119/61 94
02/16/24 07:33 02/16/24 07:35 02/16/24 07:33 02/16/24 07:35 02/16/24 07:33
I&O
02/15/24 02/16/24 02/17/24
06:59 06:59 06:59
Output Total 650 / 650 1300 / 1300
Balance -650 / -650 -1300 / -1300
--- NOTE | 2024-02-16 10:00 | W.DCSUMMARY ---
Discharge Summary
Discharge Data
Date of Admission: 02/12/24
Date of Discharge: 02/16/24
-
Pending Results: No
Hospital Course
83-year-old male past medical history of valvular disease, hypertension, hyperlipidemia, NGHIA, CKD, asthma, diabetes who is presenting with syncopal episode. Patient was found to have a cardiac sinus pauses and bradycardia. Patient was eval by
cardiology. Patient was monitored on telemetry. Patient underwent echocardiogram with EF of 55 to 60%. Mild concentric LVH. Mild mitral stenosis. Moderate aortic stenosis. Patient was eval by histologist. Patient underwent pacemaker
implantation on 02/14. Postop patient was tolerating diet well. Blood pressure was well-controlled. Patient be discharged home with outpatient follow-up for cardiology.
Discharge Plan
-
Patient Disposition: Home (Routine Discharge)
Discharge Diagnosis/Procedures: Syncope with cardiac pauses and sinus bradycardia status post pacemaker implant
Condition: Fair
Diet: As tolerated
Activity: With assistance and As tolerated
Driving Restrictions: No driving for 1 week
Stand Alone Forms: [facility] - Implanted Device
Referrals:
[facility] [Provider Group] - 02/21/24 1:00 pm (Post device incision check appointment)
Prescriptions:
Continued
tamsulosin 0.4 MG capsule
0.4 mg PO DAILY
oxycodone-acetaminophen 5 MG/325 MG tablet
0.5 tab PO DAILY
fluoxetine 20 MG capsule
40 mg PO DAILY
PreserVision AREDS-2 1 EACH capsule
1 ea PO BID
rosuvastatin 5 MG tablet
5 mg PO DAILY
Discharge Orders:
Discharge Patient (As Directed); Ordered 02/16/24
Ordered By: Darrel Skinner
Care Plan Goals
Care Plan Goals:
Problem: Readiness for enhanced knowledge related to diagnosis and treatment plan
Goal: Understand your diagnosis and treatment plan needs, including medications if applicable.
Instructions: Know your diagnosis, underlying causes and treatment plan options, including medications if applicable. Consult with your health care team to learn about your diagnosis and treatment plan, including medications if applicable.
Discharge Date and Time
Print Language: FAROESE
[2024-02-16 11:36] VITALS: BP 112/69
--- NOTE | 2024-02-16 14:38 | PTCARENOTE ---
Pt discharged to home w/ providing transportation. Pt left w/personal belongings including cell phone & stone finisher. Pt taken via wheelchair to lobby w/spouse providing transportation.
== END 2024-02-16 15:35 | disposition home or self-care (01) | DRG 244 ==
LOC: IVU 16:49
PROVIDERS: Hospitalist; Internal Medicine Cardiovascular Disease; Nurse Practitioner; Physician Assistant; ADMITTING PHYSICIAN Internal Medicine; ATTENDING PHYSICIAN Hospitalist; CONSULT PHYSICIAN Internal Medicine Cardiovascular Disease; EMERGENCY PHYSICIAN Emergency Medicine; FAMILY PHYSICIAN Radiology Radiation Oncology
PROC: 02HK3JZ Insertion of Pacemaker Lead into Right Ventricle, Percutaneous Approach (ICD-10-PCS; 2024-02-15)
PROC: 0JH606Z Insertion of Pacemaker, Dual Chamber into Chest Subcutaneous Tissue and Fascia, Open Approach (ICD-10-PCS; 2024-02-15)
PROC: 02H63JZ Insertion of Pacemaker Lead into Right Atrium, Percutaneous Approach (ICD-10-PCS; 2024-02-15)
DX: I35.0 Nonrheumatic aortic (valve) stenosis (principal); Z96.653 Presence of artificial knee joint, bilateral; M17.12 Unilateral primary osteoarthritis, left knee; N18.30 Chronic kidney disease, stage 3 unspecified; I12.9 Hypertensive chronic kidney disease with stage 1 through stage 4 chronic kidney disease, or unspecified chronic kidney disease; J45.909 Unspecified asthma, uncomplicated; D63.1 Anemia in chronic kidney disease; E11.22 Type 2 diabetes mellitus with diabetic chronic kidney disease; Z79.84 Long term (current) use of oral hypoglycemic drugs; N40.1 Benign prostatic hyperplasia with lower urinary tract symptoms; I49.5 Sick sinus syndrome; E78.00 Pure hypercholesterolemia, unspecified; G47.33 Obstructive sleep apnea (adult) (pediatric); E66.9 Obesity, unspecified; I45.10 Unspecified right bundle-branch block; E11.36 Type 2 diabetes mellitus with diabetic cataract; G47.30 Sleep apnea, unspecified
CPT/HCPCS: 33208; 71045; 80048; 80053; 82962; 83036; 83690; 83735; 84443; 84484; 85014; 85018; 85025; 85027; 85610; 93005; 93306; 96360; 99284; C1769; C1785; C1887; C1892; C1898; Q9967

== ENCOUNTER 2024-10-08 17:33 | Inpatient (IN) | payer OTHER, SELFPAY ==
[2024-10-08 13:36] VITALS: BP 134/74; BMI 37.3
[2024-10-08 13:42] VITALS: BP 134/74
--- NOTE | 2024-10-08 13:46 | ED.GENMED ---
History of Present Illness
<Keshia Haq PA-C - Last Filed: 10/08/24 21:42>
General
Chief Complaint: Musculo-Skeletal Complaint
Source: patient
Exam Limitations: none
Time Seen by Provider: 10/08/24 13:42
Nursing documentation reviewed up to this point in time: agreed with
History of Present Illness
History of Present Illness:
84-year-old male with a past medical history of coronary artery disease, hypertension, hyperlipidemia presents emergency department today with concerns of left wrist pain and left hip pain following a fall. Patient reports that he is walking
outside to get something from his car when he was walking back to go inside the house, he slipped and fell on the ice, falling on his left side. Patient insists that he did not hit his head or injure his neck. Patient denies any chest pain or
shortness of breath. Patient denies any abdominal pain. Patient states that when he fell, with the extreme pain, he was not able to stand up on his own. Patient not syncopized, he denies any dizziness or lightheadedness. Does not take any blood
thinners or antiplatelet agents. Patient states that he does have a prostatic hip on the left.
Past History
<JOHNATHON Elizalde Last Filed: 10/08/24 21:42>
Past History
ED Past Medical History: HTN, Hypercholesterolemia (BPH, renal calculi, arthritis, degenerative joint disease, osteoarthritis, chronic low back pain,) and Other (Kidney stones)
ED Past Surgical History: Appendectomy, Orthopedic (Right total knee) and Other (Bilateral cataracts, kidney stone extraction)
Social History
Tobacco: Non-smoker
Alcohol: Occasional
Drug: None
Personal:
Living: with family
Employment: Employed
Family History
Family History: Other (nc)
Review of Systems
<Keshia Haq PA-C - Last Filed: 10/08/24 21:42>
Review of Systems
All Other Systems: ROS reviewed and negative except as documented in HPI and ROS
Phy Exam
<Keshia Haq PA-C - Last Filed: 10/08/24 21:42>
Physical Exam
Physical Exam:
General: Patient is well appearing and in no acute distress; non-toxic
Skin: Warm and dry, no rashes or lesions, brisk capillary refill
Head: Normocephalic, atraumatic
Eyes: Sclera non-icteric. EOMs intact. PERRLA.
Cardiac: Regular rate and rhythm, no murmurs, no tenderness to palpation of the external chest wall
Peripheral Vascular: No lower extremity swelling or edema, 2+ dorsalis pedis pulses bilaterally. 2+ radial and ulnar pulses on the left.
Pulm: Normal respiratory effort
Abdomen: No abdominal tenderness to palpation
Musculoskeletal: Swelling noted surrounding the left wrist with dinner fork deformity noted. Severe pain with range of motion of left hip, left limb shortened.
Neuro: CN II-XII intact, no focal neurologic deficits.
Psychiatric: Appropriate mood and affect.
Course
<Keshia Haq PA-C - Last Filed: 10/08/24 21:42>
Orders/Labs/Results
Orders:
Orders
10/08/24 13:42
HYDROmorphone [Dilaudid] 1 mg IV NOW STA
10/08/24 13:44
CR Hip - LT w/wo Pel 2-3 Vw* Urgent
Comment:
Reason For Exam: left hip pain
Include a pelvis x-ray?: Yes
CR Wrist - Left Min 3 Views Urgent
Comment:
Reason For Exam: left wrist pain, deformity
10/08/24 13:57
CR Shoulder - Left Min 2 View* Urgent
Comment:
Reason For Exam: left shoulder pain
10/08/24 14:09
HYDROmorphone [Dilaudid] 1 mg IV NOW STA
10/08/24 Dinner
2000 calorie (17 carb) Diabetic
At Your Request: Limited Participation
Regular
At Your Request: Limited Participation
10/08/24 15:55
PT Consult [Pt Eval And Treat] Urgent
Activity Level: With Assistance
10/08/24 15:56
Ondansetron Injectable [Zofran] 4 mg IV NOW STA
10/08/24 16:50
CBC/No Diff [Complete Blood Count/No Diff] Urgent
CMP [Comprehensive Metabolic Panel] Urgent
10/08/24 16:51
Ondansetron Injectable [Zofran] 4 mg IV NOW STA
10/08/24 17:01
Admit/Transfer Patient As Directed
Co-Sign Provider:
Level of Care: Inpatient admission
Assign to:: Medical/Surgical
Physician / Group: Htay
Diagnosis: Wrist Fracture
Reason for Hospitalization: Wrist Fracture
Expected length of stay greater than two midnights?: Yes
ELOS- Estimated Length of Stay in days: 3
I certify the patient meets the requirements for IP care: Yes
PRN Pain Medication Management As Directed
May give lesser potent ordered pain med per pt: Yes
preference::
Protocol:: Medication orders for pain may be administered in a
manner that supports deferring to patient preference
when the pt is:
- Requesting an ordered lesser potent pain medication.
Least to most potent pain medications are defined
as: acetaminophen < NSAID < tramadol < opioids
(morphine, oxycodone, hydromorphone).
- Requesting a lesser dose of the same medication IF
ORDERED.
- Requesting a less intrusive route of administration
if both routes are prescribed by the provider (PO <
IV).
10/08/24 17:07
Code Status As Directed
Resuscitation Status: Full Code
10/08/24 17:17
[address] Pelvis W/o Iv Contrast Urgent
Comment: metal reduction protocol
Reason For Exam: fall, severe left hip pain
10/08/24 19:25
Acetaminophen [Tylenol] 650 mg PO Q4HPRN PRN
Dextrose 50%-Water [Dextrose 50% Syringe] 12.5 grams IV [id number] PRN
Glucagon [GlucaGen] 1 mg IM PRN PRN
HYDROmorphone [Dilaudid] 0.5 mg IV Q3HPRN PRN
Ondansetron Injectable [Zofran] 4 mg IV Q6HPRN PRN
Oxycodone [Roxicodone] 5 mg PO Q4HPRN PRN
10/08/24 19:25
ORTHOPEDIC CONSULT Routine
Consulting Provider: Chintan Harry
Was physician already notified: Yes
Activity As Directed
Activity Level: Out of Bed- Chair
Bedside Glucose Monitoring As Directed
Frequency: AC&HS
Additional Instructions:: Change to q6h if pt on TPN, tube feeding or not eating
Bladder Scan As Directed
Follow Bladder Retention/Intermittent Cath Algorithm?: Yes
PRN if no void in __ hours: 6
Frequency: Per Retention Algorithm
If Bladder Scan Result >: 400
then:: Straight cath
Pneumatic Compression Sleeves As Directed
Type: Knee high
Straight Cath As Directed
Frequency: Per Retention Algorithm
Additional Instructions: straight cath as needed per acute urinary retention algorithm for 24 hrs
Additional Instructions: for bladder scan greater than 400 mL
Vital Signs As Directed
Frequency: Per unit guidelines
Weight As Directed
Frequency: Daily
Weight Bearing Status As Directed
Weight bearing to: Left upper extremity
Type: Non Wt. bearing
Instructions: Non-weight bearing left wrist
Ot Eval And Treat Routine
Pt Eval And Treat Routine
Activity Level: Out of Bed-Early Mobility
DX Deep Vein Thrombosis Video Routine
10/09/24 Breakfast
NPO
Allow oral meds: Yes
Allow clear liquids: 4hrs prior to procedure
NPO with Ice Chips: Yes
Comment: may have unrestricted clear liquid up to 4 hrs prior to scheduled procedure
Glycohemoglobin (HgbA1c) IN AM
10/09/24 07:30
Insulin Aspart Corrective Low [Novolog Flexpen-Low Resistance] See Protocol SC AC
10/09/24 08:00
Fluoxetine HCl [Prozac] 40 mg PO DAILY
Rosuvastatin Calcium [Crestor] 5 mg PO DAILY
Tamsulosin [Flomax] 0.4 mg PO DAILY
Abnormal Lab Results
10/08/24
16:50
RBC 3.52 L 10^6/uL
(4.70-6.10)
Hgb 11.9 L g/dL
(13.0-18.0)
Hct 36.2 L %
(39.0-52.0)
MCV 102.8 H fL
(80.0-94.0)
MCH 33.8 H pg
(27.0-31.0)
MCHC 32.9 L g/dL
(33.0-37.0)
MPV 10.5 H fL
(7.4-10.4)
BUN 32 H mg/dl
(9-20)
Glucose 172 H mg/dl
(70-99)
10/08/24 16:50
10/08/24 16:50
Vital Signs
Initial and Last Documented VS:
Initial Vital Signs
Temp Pulse Resp BP Pulse Ox
97.9 F 82 16 134/74 98
10/08/24 13:36 10/08/24 13:36 10/08/24 13:36 10/08/24 13:36 10/08/24 13:36
Last Documented Vital Signs
Temp Pulse Resp BP Pulse Ox
98.0 F 92 17 125/73 97
10/08/24 19:30 10/08/24 19:30 10/08/24 19:30 10/08/24 19:30 10/08/24 19:30
<Dillan Gomez, DO - Last Filed: 10/08/24 14:01>
Orders/Labs/Results
Orders:
Orders
10/08/24 13:42
HYDROmorphone [Dilaudid] 1 mg IV NOW STA
10/08/24 13:44
CR Hip - LT w/wo Pel 2-3 Vw* Urgent
Comment:
Reason For Exam: left hip pain
Include a pelvis x-ray?: Yes
CR Wrist - Left Min 3 Views Urgent
Comment:
Reason For Exam: left wrist pain, deformity
10/08/24 13:57
CR Shoulder - Left Min 2 View* Urgent
Comment:
Reason For Exam: left shoulder pain
10/08/24 14:09
HYDROmorphone [Dilaudid] 1 mg IV NOW STA
10/08/24 Dinner
2000 calorie (17 carb) Diabetic
At Your Request: Limited Participation
Regular
At Your Request: Limited Participation
10/08/24 15:55
PT Consult [Pt Eval And Treat] Urgent
Activity Level: With Assistance
10/08/24 15:56
Ondansetron Injectable [Zofran] 4 mg IV NOW STA
10/08/24 16:50
CBC/No Diff [Complete Blood Count/No Diff] Urgent
CMP [Comprehensive Metabolic Panel] Urgent
10/08/24 16:51
Ondansetron Injectable [Zofran] 4 mg IV NOW STA
10/08/24 17:01
Admit/Transfer Patient As Directed
Co-Sign Provider:
Level of Care: Inpatient admission
Assign to:: Medical/Surgical
Physician / Group: Htay
Diagnosis: Wrist Fracture
Reason for Hospitalization: Wrist Fracture
Expected length of stay greater than two midnights?: Yes
ELOS- Estimated Length of Stay in days: 3
I certify the patient meets the requirements for IP care: Yes
PRN Pain Medication Management As Directed
May give lesser potent ordered pain med per pt: Yes
preference::
Protocol:: Medication orders for pain may be administered in a
manner that supports deferring to patient preference
when the pt is:
- Requesting an ordered lesser potent pain medication.
Least to most potent pain medications are defined
as: acetaminophen < NSAID < tramadol < opioids
(morphine, oxycodone, hydromorphone).
- Requesting a lesser dose of the same medication IF
ORDERED.
- Requesting a less intrusive route of administration
if both routes are prescribed by the provider (PO <
IV).
10/08/24 17:07
Code Status As Directed
Resuscitation Status: Full Code
10/08/24 17:17
CT Pelvis W/o Iv Contrast Urgent
Comment: metal reduction protocol
Reason For Exam: fall, severe left hip pain
10/08/24 19:25
Acetaminophen [Tylenol] 650 mg PO Q4HPRN PRN
Dextrose 50%-Water [Dextrose 50% Syringe] 12.5 grams IV [id number] PRN
Glucagon [GlucaGen] 1 mg IM PRN PRN
HYDROmorphone [Dilaudid] 0.5 mg IV Q3HPRN PRN
Ondansetron Injectable [Zofran] 4 mg IV Q6HPRN PRN
Oxycodone [Roxicodone] 5 mg PO Q4HPRN PRN
10/08/24 19:25
ORTHOPEDIC CONSULT Routine
Consulting Provider: Chintan Harry
Was physician already notified: Yes
Activity As Directed
Activity Level: Out of Bed- Chair
Bedside Glucose Monitoring As Directed
Frequency: AC&HS
Additional Instructions:: Change to q6h if pt on TPN, tube feeding or not eating
Bladder Scan As Directed
Follow Bladder Retention/Intermittent Cath Algorithm?: Yes
PRN if no void in __ hours: 6
Frequency: Per Retention Algorithm
If Bladder Scan Result >: 400
then:: Straight cath
Pneumatic Compression Sleeves As Directed
Type: Knee high
Straight Cath As Directed
Frequency: Per Retention Algorithm
Additional Instructions: straight cath as needed per acute urinary retention algorithm for 24 hrs
Additional Instructions: for bladder scan greater than 400 mL
Vital Signs As Directed
Frequency: Per unit guidelines
Weight As Directed
Frequency: Daily
Weight Bearing Status As Directed
Weight bearing to: Left upper extremity
Type: Non Wt. bearing
Instructions: Non-weight bearing left wrist
Ot Eval And Treat Routine
Pt Eval And Treat Routine
Activity Level: Out of Bed-Early Mobility
DX Deep Vein Thrombosis Video Routine
10/09/24 Breakfast
NPO
Allow oral meds: Yes
Allow clear liquids: 4hrs prior to procedure
NPO with Ice Chips: Yes
Comment: may have unrestricted clear liquid up to 4 hrs prior to scheduled procedure
Glycohemoglobin (HgbA1c) IN AM
10/09/24 07:30
Insulin Aspart Corrective Low [Novolog Flexpen-Low Resistance] See Protocol SC AC
10/09/24 08:00
Fluoxetine HCl [Prozac] 40 mg PO DAILY
Rosuvastatin Calcium [Crestor] 5 mg PO DAILY
Tamsulosin [Flomax] 0.4 mg PO DAILY
Abnormal Lab Results
10/08/24
16:50
RBC 3.52 L 10^6/uL
(4.70-6.10)
Hgb 11.9 L g/dL
(13.0-18.0)
Hct 36.2 L %
(39.0-52.0)
MCV 102.8 H fL
(80.0-94.0)
MCH 33.8 H pg
(27.0-31.0)
MCHC 32.9 L g/dL
(33.0-37.0)
MPV 10.5 H fL
(7.4-10.4)
BUN 32 H mg/dl
(9-20)
Glucose 172 H mg/dl
(70-99)
10/08/24 16:50
10/08/24 16:50
Vital Signs
Initial and Last Documented VS:
Initial Vital Signs
Temp Pulse Resp BP Pulse Ox
97.9 F 82 16 134/74 98
10/08/24 13:36 10/08/24 13:36 10/08/24 13:36 10/08/24 13:36 10/08/24 13:36
Last Documented Vital Signs
Temp Pulse Resp BP Pulse Ox
98.0 F 92 17 125/73 97
10/08/24 19:30 10/08/24 19:30 10/08/24 19:30 10/08/24 19:30 10/08/24 19:30
Trelt;Keshia Haq PA-C - Last Filed: 10/08/24 21:42>
MDM/Problems Addressed
Differential Diagnosis Includes:
see below
MDM/Problems Addressed:
NUMBER AND COMPLEXITY OF PROBLEMS ADDRESSED AT THE ENCOUNTER
� Chronic conditions affecting care: Coronary artery disease, hypertension, hyperlipidemia
� Acute Exacerbation and/or Progression of Chronic Illness:
� Differential Diagnosis includes: colles fracture, musculoskeletal sprain/strain, pelvic fracture, hip dislocation
AMOUNT AND/OR COMPLEXITY OF DATA TO BE REVIEWED AND ANALYZED
� I performed an independent evaluation of and my interpretation is:
X-rays:
Laboratory Studies:
Other:
� Review of other/old records: Reviewed discharge summary from 06/18/2024, patient seen for near syncope, found to have sinus pauses and bradycardia, patient had pacemaker put in the place
� Clinical information was obtained by an independent historian: EMS contributed to HPI
� Prescriptions/Medications Considered but not given:
� Further testing considered but not performed: n/a
RISK OF COMPLICATIONS AND/OR MORBIDITY OR MORTALITY OF PATIENT MANAGEMENT
� Social determinants of health affecting care: none
� Discussion with other providers: ER attending
� Escalation of care including admission/observation vs risk of discharge considered:
84-year-old male with past medical history of coronary artery disease, hypertension, hyperlipidemia presents emergency department with left wrist pain left hip pain following a fall. He states that he did not hit his head or injure his neck. His
x-ray of his wrist demonstrates a comminuted distal radial fracture with intra-articular extension and scapholunate dissociation. Patient placed in a volar splint. Patient continues with severe right hip pain and is unable to pair weight or
ambulate, states that he is unable to help him at home. X-ray and CT of the hip negative for fracture. Patient referred for admission.
<Keshia Haq PA-C - Last Filed: 10/08/24 21:42>
*Critical Care Note
Total Time (30-74mins, 75-104mins- exclusive of procedures): Not Applicable
ED Attending Note
<Keshia Haq PA-C - Last Filed: 10/08/24 21:42>
-
Portions of this chart may have been created with voice recognition software.� Occasional wrong word or��sound alike� substitutions may have occurred due to the inherent limitations of voice recognition software.
<Dillan Gomez DO - Last Filed: 10/08/24 14:01>
ED Attending Note
Patient seen and examined by attending physician: Yes
I performed the substantive portion of visit, reviewed & personally made and approve the management plan that is documented in note by myself or IRENA.: Yes
ED Attending Note:
Seen with PA examined independently status post slip on the ice left wrist pain left hip pain also subacute onset of left shoulder pain schedule see Ortho next week
Discharge Plan
Departure
Patient Disposition: Admit
Date of Disposition: 10/08/24
Time of Disposition: 16:37
Admit to: Med/Surg
Presentation/result/management discussed w/ accepting MD/DO: Hospitalist
Patient with high blood pressure during this ER visit?: Yes
Condition: Fair
Discharge Problem:
Ambulatory dysfunction, Acute pain of left hip, Fracture of wrist
Interventions
Interventions:
*Risk Screen - Suicide Last Done: 10/08/24 13:36
*General Assessment Last Done: 10/08/24 13:36
*Neglect/Abuse Screening Last Done: 10/08/24 13:36
ED- Fall Risk Assessment Last Done: 10/08/24 15:06
*ED COVID-19 Vaccine History Last Done: 10/08/24 15:06
*Nursing Disposition Last Done: 10/08/24 19:18
ED-Musculoskeletal Assessment Last Done: 10/08/24 13:36
Discharge Date and Time
Discharge Date/Time: 10/08/24 19:18
[2024-10-08] MEDS: DILAUDID 1 MG IV (14:09)
[2024-10-08] MEDS: ZOFRAN 4 MG IV ×2 (16:28→16:53)
--- NOTE | 2024-10-08 16:41 | HPS.HSE ---
Family Physician
-
Family Physician: Yong Gifford
Chief Complaint
-
Fall with left hip and wrist pain
History of Present Illness
Patient is an 84 y/o male past medical history of symptomatic bradycardia s/p pacemaker, valvular heart disease, hypertension, and diabetes mellitus who presents following a fall complaining of left hip and wrist pain. Patient states he went out to
get something from his car. There was a large block of ice on the ground which he tried to breakup but slipped and fell landing on his left side. Work-up in ED revealed left wrist fracture. Due to severity of left hip pain patient is unable to
ambulate unassisted. Hospitalist group was asked to evaluate the patient for admission to the hospital.
Medical History
Past Medical History
Past Medical History: Reports Other
Additional Past Medical History:
Symptomatic Bradycardia s/p Pacemaker
Valvular Heart Disease: Moderate Aortic Stenosis. Mild Mitral stenosis
Essential Hypertension
Hyperlipidemia
Diabetes Mellitus, Type II
CKD Stage II
Anemia of Chronic Disease
Asthma
Obstructive Sleep Apnea
Chronic Back Pain
Chronic Right Foot Drop
BPH
Nephrolithiasis
Past Surgical History: Reports Other
Additional Past Surgical History:
Left Hip Replacement
Bilateral Knee Replacements
Appendectomy
Social History
Tobacco: Non-smoker
Alcohol: Other (Very Rare)
Family History
Family History: Not pertinent
Allergies / Home Medications
Allergies reflects when Allergies were last updated in [facility].
Home Medications with original date entered in [facility]
Allergy/Medication List:
Allergies
Allergy/AdvReac Type Severity Reaction Status Date / Time
No Known Allergies Allergy Verified 02/12/24 11:45
Home Medications
tamsulosin 0.4 mg capsule 0.4 mg PO DAILY Urinary issue 11/24/18
fluoxetine 20 mg capsule 40 mg PO DAILY depression/anxiety 06/13/21
oxycodone-acetaminophen 5 mg-325 mg tablet 0.5 tab PO DAILY pain 06/13/21
rosuvastatin 5 mg tablet 5 mg PO DAILY High Cholesterol 06/13/21
vit C 250 mg-vit E 90 mg-zinc 40 mg-copper 1 by-achent-iyqyxa capsule (PreserVision AREDS-2) 2 ea PO DAILY Supplement 06/13/21
oxycodone-acetaminophen 5 mg-325 mg tablet 1 tab PO HSPRN PRN severe pain 10/08/24
Review of Systems
-
A 12 point ROS was completed and negative except as noted: Yes
Constitutional: Denies Fever or Chills
Respiratory: Denies Cough or Trouble Breathing
Cardiac: Denies Chest Pain or Palpitations
Abdomen/GI: Denies Abdominal Pain, Nausea, Vomiting, Diarrhea or Constipated
Musculoskeletal: Reports See HPI
Physical Exam
Vital Signs
Vital Signs
Temp Pulse Resp BP Pulse Ox
97.9 F 79 18 134/74 98
10/08/24 13:36 10/08/24 13:45 10/08/24 13:45 10/08/24 13:42 10/08/24 13:45
Physical Exam
General: Comfortable and Conversant
HEENT: Anicteric and Moist mucous membranes
Respiratory: Clear and Non Labored Respirations
Cardiac: S1/S2 and Regular Rhythm
GI: Soft and Non Tender
Rectal: Deferred by Provider
Musculoskeletal: No Clubbing, No Cyanosis, No Edema and Other (Left wrist with splint wrapped in LEANDRA)
Skin: Warm and Dry
Neuro: Awake, Alert, Oriented and Nonfocal/grossly intact
Psych: Calm
Laboratory Results
-
Left Wrist X-Ray:
Acute comminuted distal radial fracture with intra-articular extension and scapholunate dissociation as detailed above
Left Hip X-Ray:
No acute abnormalities.
Left hip replacement in satisfactory position
There is degenerative osteoarthritis with mild joint space narrowing at the right hip
There is degenerative disc disease with disc space narrowing and degenerative spurring at L4-5
Data Reviewed
-
Diagnostic Radiology: Report Reviewed by me
Lab Data: Labs Reviewed by me
Impression/Plan
-
Mechanical Fall resulting in Left Distal Radius Fracture
-Consult Orthopedics
-Continue non-weight bearing left wrist
-NPO after midnight for possible OR
Left Hip Pain
-X-Ray negative for fracture - Check CT scan with metal reduction protocol to evaluate for fracture
-Consult PT/OT
Valvular Heart Disease: Moderate Aortic Stenosis. Mild Mitral stenosis
-Monitor Daily Weights
Hyperlipidemia
-Continue Crestor
Diabetes Mellitus, Type II
-Continue diabetic diet
-Monitor sugars and continue coverage insulin
BPH
-Continue Flomax
Hx Symptomatic Bradycardia s/p Pacemaker
DVT proph: SCDs
Code Status: Full Code
[2024-10-08 16:58] LABS: Hematocrit 36.2 % (39.0-52.0); Hemoglobin 11.9 g/dL (13.0-18.0); Mean Corp Hgb Conc. 32.9 g/dL (33.0-37.0); Mean Corpuscular Hgb 33.8 pg (27.0-31.0); Mean Corpuscular Volume 102.8 fL (80.0-94.0); Mean Platelet Volume 10.5 fL (7.4-10.4); Platelet Count 159 10^3/uL (130-400); Red Blood Cell Count 3.52 10^6/uL (4.70-6.10); Red Cell Dist. Width 12.8 % (11.5-14.5); White Blood Cell Count 5.6 10^3/uL (4.8-10.8)
[2024-10-08 17:13] LABS: Potassium 4.3 mmol/L (3.5-5.1)
[2024-10-08 17:14] LABS: ALT (SGPT) 19 U/L (0-50); AST (SGOT) 23 U/L (17-59); Albumin 4.3 g/dl (3.5-5.0); Alkaline Phosphatase 64 U/L (38-126); Blood Urea Nitrogen 32 mg/dl (9-20); Calcium 9.2 mg/dl (8.4-10.2); Carbon Dioxide 25 mmol/L (22-30); Chloride 102 mmol/L (98-107); Estimated Creatinine Clearance 55 ml/min; Glucose 172 mg/dl (70-99); Sodium 138 mmol/L (135-145); Total Bilirubin 1.3 mg/dl (0.2-1.3); Total Protein 7.2 g/dl (6.3-8.2); eGFR > 60.00
--- NOTE | 2024-10-08 17:15 | W.PN.UPDATE ---
Update Note
Progress Note Update
This note serves as an addendum to the H&P by care transitions nurse IRENA: Betzy ESTELLE.
HPI
83M with Lt prostheic Hip HX valvular disease, Acute comminuted distal radial fracture with intra-articular extension and scapholunate dissociation seen at ER:
- concerns of left wrist pain and left hip pain following a fall.
- Patient reports that he is walking outside he slipped and fell on the ice, falling on his left side.
- Patient insists that he did not hit his head or injure his neck.
- not take any blood thinners or antiplatelet agents.
HX Lt prostatic hip
ROS
denies any chest pain or shortness of breath.
denies any abdominal pain.
not syncopized, he denies any dizziness or lightheadedness.
Reviewed VS:
Vital Signs
Temp Pulse Resp BP Pulse Ox
97.9 F 79 18 134/74 98
10/08/24 13:36 10/08/24 13:45 10/08/24 13:45 10/08/24 13:42 10/08/24 13:45
PE
Gen: NAD , not toxic
HEENT: atraumatic head
Neck: supple
Lungs: symmetric AE,clear lungs
Cor: RRR S1 S2 No murmur
Abdomen: soft, benign exam
PASTRY COOK: AAO3 , NFND
MS: Covered with Volar splint to Lt wrist
severe pain with ROM of Lt Hip
Psych: Appropriate mood and affect.
Data
Laboratory Tests
02/16/24 10/08/24
03:39 16:50
Hgb 12.2 L 11.9 L
MCV 102.8 H
02/14/24 TTE
LVEF 55-60
mild concentric LVH
Mild MS - mean gradient 4 mmHg. Valve area by pressure half time is 2.1cm sq.
Mild MR
Moderate aortic stenosis. Peak/mean gradients are 45/27mmHg.
(Compared to prior echocardiogram from January 06 2023 degree of aortic stenosis has worsened somewhat)
The valve area by 0.9cm sq, using a LVOT of 2.0cm.
Trace aortic regurgitation.
Lt shoulder XR
No acute abnormalities
Osteopenia
Degenerative osteoarthritis at the glenohumeral joint
Lt wrist XR
Acute comminuted distal radial fracture with intra-articular extension and scapholunate dissociation as detailed above
Lt Hip XR
No acute abnormalities.
Left hip replacement in satisfactory position
There is degenerative osteoarthritis with mild joint space narrowing at the right hip
There is degenerative disc disease with disc space narrowing and degenerative spurring at L4-5
Last hospitalist admission: Date of Admission: 02/12/24 - Date of Discharge: 02/16/24
Discharge Diagnosis/Procedures:
Syncope with cardiac pauses and sinus bradycardia status post pacemaker implan
ASSESSMENT & PLAN
Acute comminuted distal radial Fx with intra-articular extension plus scapholunate dissociation
Under Volar splint for immobilization
S/P mechanical fall
Acute ambulatory dysfunction.
- Fx set protocol for PRN narcotic analgesia, Anti emetic PRN, BW regime
- NPO after MN
- Ortho consulted
Lt Hip pain
HX Lt Hip Prosthesis , HX TKR by Dr Gonzales ( [facility] )
- CT Lt Hip for metal reduction protocol per Dr Harry
DMT2
- add ISS
HX HLD
- on Rosuvastatin
Depression
- stable
- on Fluoxetine
BPH
- on Tamsulosin
DVT Px: SCD
Full code
IP MS
[2024-10-08 18:17] VITALS: BP 136/77
[2024-10-08 19:30] VITALS: BP 125/73
--- NOTE | 2024-10-08 20:00 | PTCARENOTE ---
Pt arrived to floor via stretcher from the ED. Pt reports unable to stand at this time due to left hip pain. Pt pulled over to bed. Pt positioned per comfort. Left arm brace in place. Pt reports pain at 3/10 at this time. Hip pain at rest 3/10,
10/10 with movement. POX 97% on RA. Lungs dec. Round obese abd. Palpable peripheral pulses. Skin intact. Left arm elevated on pillow. Call quiroga in reach. Will monitor.
[2024-10-08 22:22] LABS: Glucose - Point of Care 154 mg/dl (70-99)
[2024-10-08 23:00] VITALS: BP 112/70
[2024-10-09] MEDS: ROXICODONE 5 MG PO ×4 (01:37→21:30)
[2024-10-09 06:00] VITALS: BMI 36.4
--- NOTE | 2024-10-09 06:37 | PTCARENOTE ---
PT awake intermittently t/o the night. Pt with reports of left arm pain, PRN pain medication administered as ordered. PT refused Q2 turn overnight. Vital signs stable. Will continue to monitor.
[2024-10-09 07:00] VITALS: BP 106/64
[2024-10-09] MEDS: CRESTOR 5 MG PO (08:13)
[2024-10-09] MEDS: PROZAC 40 MG PO (08:13)
[2024-10-09] MEDS: FLOMAX 0.4 MG PO (08:13)
[2024-10-09 08:30] LABS: Glucose - Point of Care 149 mg/dl (70-99)
[2024-10-09 09:07] LABS: Glycohemoglobin (HgbA1c) 6.6 % (4.0-5.6)
--- NOTE | 2024-10-09 09:29 | CON.ORTHO ---
Consultation
-
Date/Time Consultation Requested: Oct 10
Date/Time Consultation Performed: Oct 10
Requesting Provider: JOHNATHON Magdaleno
Performing Provider: [facility]
Reason for Consultation: Left wrist fracture
Consultation - Orthopedics
History
Dictation#[id number]
HPI: Requested consultation by the hospitalist team to this very pleasant 84-year-old white male with a PMH of symptomatic Bradycardia s/p Pacemaker, Valvular Heart Disease, Moderate Aortic Stenosis, Mild Mitral stenosis, Essential Hypertension,
Hyperlipidemia, Diabetes Mellitus Type II, CKD Stage II, Anemia of Chronic Disease, Asthma, Obstructive Sleep Apnea, Chronic Back Pain, Chronic Right Foot Drop, BPH, Nephrolithiasis, who is well-known to our orthopedic group, specifically Dr.
Christian for left LEONARD and bilateral TKA. he tells me he was going out to get something from his car and slipped on the ice. He landed on his left wrist and hand. denies a prodrome or head strike. no LOC. He is also having some pain about his left
hip. Fortunately CT scan did not reveal a periprosthetic fracture. X-rays in the ED did reveal a comminuted, intra-articular left distal radius fracture with likely SLL disruption. he has been admitted to the hospitalist team for further workup
and we have been requested consultation with regards to his left wrist fracture and for further evaluation of his left hip.
Allergies / Home Medications
Allergy/AdvReac Type Severity Reaction Status Date / Time
No Known Allergies Allergy Verified 02/12/24 11:45
�Medication �Instructions �Recorded
tamsulosin 0.4 mg capsule 0.4 mg PO DAILY Urinary issue 11/24/18
fluoxetine 20 mg capsule 40 mg PO DAILY depression/anxiety 06/13/21
oxycodone-acetaminophen 5 mg-325 0.5 tab PO DAILY pain 06/13/21
mg tablet
rosuvastatin 5 mg tablet 5 mg PO DAILY High Cholesterol 06/13/21
vit C 250 mg-vit E 90 mg-zinc 40 2 ea PO DAILY Supplement 06/13/21
mg-copper 1 [id number]
capsule (PreserVision AREDS-2)
oxycodone-acetaminophen 5 mg-325 1 tab PO HSPRN PRN severe pain 10/08/24
mg tablet
Vital Signs / Lab Results
Temp Pulse Resp BP Pulse Ox
98.0 F 85 18 106/64 95
10/09/24 07:00 10/09/24 07:00 10/09/24 07:00 10/09/24 07:00 10/09/24 07:00
10/08/24 16:50
10/08/24 16:50
Assessment / Plan
PE: Bedrest. Left wrist/hand splinted. Skin intact. generalized pain to palpation about the left wrist and hand. Good motion of his fingers. Good sensation distally. DNVI LUE. Evaluation of the left hip reveals a vertical scar over the posterior
lateral thigh. There is some generalized discomfort to palpation about the hip. No pain with logroll. Range of motion deferred due to pain. Calf is soft and nontender. Neurovascularly intact LLE
Xrays: Comminuted and intra-articular fracture of the left distal radius with likely SLL disruption
Left hip/pelvis without evidence of periprosthetic fracture and LEONARD noted to be in good position without obvious evidence of loosening or failure. CT scan of the pelvis correlates these findings
Impression: LEFT distal radius fracture. LEFT hip contusion without evidence of periprosthetic fracture
Plan: I discussed at length with the patient. At this point I am not concerned for his left hip, and he is likely dealing with a contusion. However, his left wrist would be best served with surgical correction. I did discuss at length the RBAs of
both nonoperative and operative fixation of his left wrist. Fortunately he is right-hand dominant. After accepting all the proposed risks of surgical correction he would like to proceed. we will look to proceed with operative fixation of his left
wrist tomorrow morning under the direction of Dr. Bolanos. Surgical and blood consents have been signed and placed to the patient's chart. Operative site has been marked as the left wrist. splint to remain. Ice and elevation for pain and swelling
control. Remain NWB. NPO order placed for tomorrow. OR notified. Will continue to follow. Discussed with attending hospitalist, Dr. Kelsey, who will be assuring he is optimized for tomorrow's surgery
[2024-10-09] MEDS: NOVOLOG FLEXPEN-LOW RESISTANCE SC (09:57)
[2024-10-09 11:47] LABS: Glucose - Point of Care 190 mg/dl (70-99)
[2024-10-09 11:48] VITALS: BP 114/64; PULSE 90; O2SAT 90
[2024-10-09 11:49] VITALS: BP 114/64; PULSE 90; O2SAT 90
[2024-10-09] MEDS: NOVOLOG FLEXPEN-LOW RESISTANCE 1 UNITS SC ×2 (12:16→17:03)
--- NOTE | 2024-10-09 13:37 | W.PN.HOSP.TC ---
Today's Communication/Plan
-
see A/P
Assessment / Plan
Assessment / Plan
HPI: 84 y/o male past medical history of symptomatic bradycardia s/p pacemaker, valvular heart disease, hypertension, and diabetes mellitus; who presented following a fall, complaining of left hip and wrist pain.
Patient states he went out to get something from his car. There was a large block of ice on the ground which he tried to breakup but slipped and fell landing on his left side.
Work-up in ED revealed left wrist fracture. Due to severity of left hip pain, patient is unable to ambulate unassisted.
A/P:
# Mechanical Fall resulting in Left Distal Radius Fracture
Orthopedic on board, [facility] L wrist ORIF 10/10
NPO pMN
Pt is medically stable and optimized for low to intermediate risk procedure. Benefit of procedure outweighs risk.
# Left Hip Pain
X-Ray negative for fracture
Follow up CT also negative for acute abnormalities.
Consult PT/OT
# Valvular Heart Disease: Moderate Aortic Stenosis. Mild Mitral stenosis
Monitor Daily Weights
# Hyperlipidemia
Continue Crestor
# Diabetes Mellitus, Type II
Continue diabetic diet
Monitor sugars and continue coverage insulin
# BPH
Continue Flomax
# Hx Symptomatic Bradycardia s/p Pacemaker
DVT proph: SCDs
Code Status: Full Code
Anticipated Discharge: > 48 hours
Subjective/Interval History
-
Date of Service: October 09, 2024
Objective Data
-
Vital Signs:
Vital Signs
Temp Pulse Resp BP Pulse Ox
36.7 C 85 18 106/64 95
10/09/24 07:00 10/09/24 07:00 10/09/24 07:00 10/09/24 07:00 10/09/24 08:10
I&O
12/22/24 12/23/24 12/24/24
06:59 06:59 06:59
Intake Total 960 / 960
Output Total 750 / 750
Balance 210 / 210
Review of Systems
-
Musculoskeletal: Reports Joint Pain (L hip pain, L wrist pain)
Physical Exam
-
General: Well Developed, Well Nourished, No Apparent Distress, Comfortable and Conversant; Negative Respiratory Distress
HEENT: Normocephalic, Atraumatic, Nose Appears Normal and Ears Appear Normal; Negative Oxygen
Respiratory: Clear to Auscultation and Non Labored Respirations; Negative Accessory Resp Muscle Use
Cardiac: Regular Rhythm and S1/S2
GI: Soft, Nontender and Nondistended
Musculoskeletal: Other (LUE in splint)
Skin: Warm and Dry
Neuro: Awake, Alert and Oriented
Psych: Calm and Intact Judgement/Insight
Data Reviewed
-
Diagnostic Radiology: Report Reviewed by me
CT Scan: Report Reviewed by me
Labs: Labs Reviewed by me
[2024-10-09] MEDS: LIDOCAINE 4% PATCH 1 PATCH TOPICAL (14:23)
[2024-10-09 15:00] VITALS: BP 123/68
--- NOTE | 2024-10-09 16:10 | CM ---
Met with pt at bedside
Pt reports he lives with his in a 2 story home; no steps to enter, 12 steps to 2nd fl
Reports independent with ADL's, cane with ambulation, drives
DME - single point cane, rolling walker, shower chair, raised toilet seat
SNF - [facility] in past
HH - [facility] in past
PCP - Yong Gifford
Pharm - [facility]
OR tomorrow for repair of wrist fx
Plan - anticipate SNF when medically stable pending post op PT/OT eval
[2024-10-09 16:57] LABS: Glucose - Point of Care 151 mg/dl (70-99)
[2024-10-09 21:31] LABS: Glucose - Point of Care 201 mg/dl (70-99)
[2024-10-09 23:00] VITALS: BP 107/64
[2024-10-10] VITALS (11 sets, daily range): BP systolic 107–138; BP diastolic 61–88; BMI 36.5
[2024-10-10 00:19] LABS: Glucose - Point of Care 171 mg/dl (70-99)
[2024-10-10] MEDS: NOVOLOG FLEXPEN-LOW RESISTANCE 1 UNITS SC ×2 (00:31→06:29)
[2024-10-10] MEDS: TYLENOL 650 MG PO (00:35)
[2024-10-10] MEDS: ROXICODONE 5 MG PO ×2 (03:27→18:34)
[2024-10-10 05:51] LABS: Glucose - Point of Care 151 mg/dl (70-99)
[2024-10-10 06:26] LABS: Hematocrit 31.4 % (39.0-52.0); Hemoglobin 10.5 g/dL (13.0-18.0); Mean Corp Hgb Conc. 33.4 g/dL (33.0-37.0); Mean Corpuscular Hgb 34.2 pg (27.0-31.0); Mean Corpuscular Volume 102.3 fL (80.0-94.0); Mean Platelet Volume 10.4 fL (7.4-10.4); Platelet Count 128 10^3/uL (130-400); Red Blood Cell Count 3.07 10^6/uL (4.70-6.10); Red Cell Dist. Width 12.6 % (11.5-14.5)
[2024-10-10 06:57] LABS: Blood Urea Nitrogen 29 mg/dl (9-20); Calcium 8.7 mg/dl (8.4-10.2); Carbon Dioxide 25 mmol/L (22-30); Chloride 100 mmol/L (98-107); Estimated Creatinine Clearance 50 ml/min; Glucose 156 mg/dl (70-99); Potassium 4.6 mmol/L (3.5-5.1); Sodium 134 mmol/L (135-145); eGFR 58.89
--- NOTE | 2024-10-10 07:38 | W.PN.UPDATE ---
Update Note
Progress Note Update
Patient to undergo open reduction internal fixation left wrist fracture later today. He is n.p.o. and antibiotics on-call to operating room. Surgical location is marked and consent for surgery signed. Distal neurovascular was intact with splint
in place.
--- NOTE | 2024-10-10 10:24 | CM ---
Patient seen at bedside.
OR today - dx: wrist fx
PT/OT to eval post op
Anticipate SNF-if so he prefers [facility]
PLAN: OR today, Await PT/OT rec post op
--- NOTE | 2024-10-10 10:57 | W.PN.HOSP.TC ---
Today's Communication/Plan
-
see A/P
Assessment / Plan
Assessment / Plan
HPI: 84 y/o male past medical history of symptomatic bradycardia s/p pacemaker, valvular heart disease, hypertension, and diabetes mellitus; who presented following a fall, complaining of left hip and wrist pain.
Patient states he went out to get something from his car. There was a large block of ice on the ground which he tried to breakup but slipped and fell landing on his left side.
Work-up in ED revealed left wrist fracture. Due to severity of left hip pain, patient is unable to ambulate unassisted.
A/P:
# Mechanical Fall resulting in Left Distal Radius Fracture
Orthopedic on board, recc L wrist ORIF 10/10
NPO pMN
Pt is medically stable and optimized for low to intermediate risk procedure. Benefit of procedure outweighs risk.
# Left Hip Pain
X-Ray negative for fracture
Follow up CT also negative for acute abnormalities.
Consult PT/OT
# Valvular Heart Disease: Moderate Aortic Stenosis. Mild Mitral stenosis
Monitor Daily Weights
# Hyperlipidemia
Continue Crestor
# Diabetes Mellitus, Type II
Continue diabetic diet
Monitor sugars and continue coverage insulin
# BPH
Continue Flomax
# Hx Symptomatic Bradycardia s/p Pacemaker
DVT proph: SCDs
Code Status: Full Code
Anticipated Discharge: 24 - 48 hours
Subjective/Interval History
-
Date of Service: October 10, 2024
Objective Data
-
Labs:
Laboratory Results
10/10/24
05:31
WBC 6.0
Hgb 10.5 L
Hct 31.4 L
Plt Count 128 L
Sodium 134 L
Potassium 4.6
Chloride 100
Carbon Dioxide 25
BUN 29 H
Creatinine 1.2
Glucose 156 H
Calcium 8.7
Vital Signs:
Vital Signs
Temp Pulse Resp BP Pulse Ox
36.7 C 90 18 138/88 93
10/10/24 07:00 10/10/24 07:00 10/10/24 07:00 10/10/24 07:00 10/10/24 07:00
I&O
10/09/24 10/10/24 10/11/24
06:59 06:59 06:59
Intake Total 960 / 960 600 / 600
Output Total 750 / 750 850 / 850
Balance 210 / 210 -250 / -250
Review of Systems
-
Musculoskeletal: Reports Joint Pain (L hip pain, L wrist pain)
Physical Exam
-
General: Well Developed, Well Nourished, No Apparent Distress, Comfortable and Conversant; Negative Respiratory Distress
HEENT: Normocephalic, Atraumatic, Nose Appears Normal and Ears Appear Normal; Negative Oxygen
Respiratory: Clear to Auscultation and Non Labored Respirations; Negative Accessory Resp Muscle Use
Cardiac: Regular Rhythm and S1/S2
GI: Soft, Nontender and Nondistended
Musculoskeletal: Other (LUE in splint)
Skin: Warm and Dry
Neuro: Awake, Alert and Oriented
Psych: Calm and Intact Judgement/Insight
Data Reviewed
-
Diagnostic Radiology: Report Reviewed by me
CT Scan: Report Reviewed by me
Labs: Labs Reviewed by me
[2024-10-10] MEDS: ANCEF 10 IV (12:00)
[2024-10-10 12:48] LABS: Glucose - Point of Care 131 mg/dl (70-99)
[2024-10-10] MEDS: NOVOLOG FLEXPEN-LOW RESISTANCE SC (13:45)
[2024-10-10] MEDS: FLOMAX 0.4 MG PO (14:48)
[2024-10-10] MEDS: PROZAC 40 MG PO (14:48)
[2024-10-10] MEDS: LIDOCAINE 4% PATCH TOPICAL (14:49)
[2024-10-10] MEDS: CRESTOR 5 MG PO (14:49)
--- NOTE | 2024-10-10 15:44 | PTCARENOTE ---
[facility] 1325 Pt back from pacu S/P ORIF of left wrist. Pt now ordered tele, V paced on monitor. Vitals stable. No pain. Left arm splinted and yari wrapped on pillow. Good cap refill. Pt to order lunch.
--- NOTE | 2024-10-10 16:20 | CM ---
occupational safety and health manager met with patient and he is agreeable to skilled placement at [facility], referral sent to [facility], patient will need Auth from [facility] for skilled placement.
Plan; Skilled placement at [facility] pending PT/OT evaluations and insurance Auth.
[2024-10-10] MEDS: REFRESH EYE DROPS (PF) 1 DROPS OPHTH (16:48)
[2024-10-10 17:28] LABS: Glucose - Point of Care 293 mg/dl (70-99)
[2024-10-10] MEDS: LOVENOX 40 MG SC (17:42)
[2024-10-10] MEDS: NOVOLOG FLEXPEN-LOW RESISTANCE 3 UNITS SC (17:43)
[2024-10-10] MEDS: COLACE 100 MG PO (20:02)
[2024-10-10] MEDS: ANCEF 5 IV (20:02)
[2024-10-10 21:32] LABS: Glucose - Point of Care 285 mg/dl (70-99)
[2024-10-11] VITALS (7 sets, daily range): BP systolic 103–130; BP diastolic 60–75; PULSE 75; O2SAT 95; BMI 36.8
[2024-10-11] MEDS: ROXICODONE 5 MG PO ×2 (00:48→09:48)
[2024-10-11] MEDS: ANCEF 5 IV (04:10)
[2024-10-11 07:21] LABS: Hemoglobin 11.4 g/dL (13.0-18.0); Mean Corp Hgb Conc. 34.5 g/dL (33.0-37.0); Mean Corpuscular Hgb 35.3 pg (27.0-31.0); Mean Corpuscular Volume 102.2 fL (80.0-94.0); Mean Platelet Volume 10.7 fL (7.4-10.4); Platelet Count 145 10^3/uL (130-400); Red Blood Cell Count 3.23 10^6/uL (4.70-6.10); Red Cell Dist. Width 12.4 % (11.5-14.5); White Blood Cell Count 7.9 10^3/uL (4.8-10.8)
[2024-10-11 07:39] LABS: Blood Urea Nitrogen 26 mg/dl (9-20); Calcium 8.6 mg/dl (8.4-10.2); Carbon Dioxide 28 mmol/L (22-30); Chloride 98 mmol/L (98-107); Estimated Creatinine Clearance 60 ml/min; Glucose 158 mg/dl (70-99); Potassium 4.6 mmol/L (3.5-5.1); Sodium 134 mmol/L (135-145); eGFR > 60.00
[2024-10-11 08:00] LABS: Glucose - Point of Care 154 mg/dl (70-99)
[2024-10-11] MEDS: PROZAC 40 MG PO (09:47)
[2024-10-11] MEDS: CRESTOR 5 MG PO (09:49)
[2024-10-11] MEDS: LIDOCAINE 4% PATCH 1 PATCH TOPICAL (09:49)
[2024-10-11] MEDS: COLACE 100 MG PO (09:50)
[2024-10-11] MEDS: FLOMAX 0.4 MG PO (09:50)
[2024-10-11] MEDS: NOVOLOG FLEXPEN-LOW RESISTANCE 1 UNITS SC (09:51)
--- NOTE | 2024-10-11 10:51 | W.PN.HOSP.TC ---
Today's Communication/Plan
-
see A/P
Assessment / Plan
Assessment / Plan
HPI: 84 y/o male past medical history of symptomatic bradycardia s/p pacemaker, valvular heart disease, hypertension, and diabetes mellitus; who presented following a fall, complaining of left hip and wrist pain.
Patient states he went out to get something from his car. There was a large block of ice on the ground which he tried to breakup but slipped and fell landing on his left side.
Work-up in ED revealed left wrist fracture. Due to severity of left hip pain, patient is unable to ambulate unassisted.
A/P:
# Mechanical Fall resulting in Left Distal Radius Fracture
s/p L wrist ORIF 10/10 by ortho
PT OT recc SNF
pain control with oxycodone,
added bowel regimen Senokot-S and Miralax for constipation
DVT ppx with Lovenox SQ
# Left Hip Pain
X-Ray negative for fracture
Follow up CT also negative for acute abnormalities.
PT OT recc SNF
# Valvular Heart Disease: Moderate Aortic Stenosis. Mild Mitral stenosis
Monitor Daily Weights
# Hyperlipidemia
Continue Crestor
# Diabetes Mellitus, Type II
Continue diabetic diet
Monitor sugars and continue coverage insulin
# BPH
Continue Flomax
# Hx Symptomatic Bradycardia s/p Pacemaker
DVT proph: SCDs
Code Status: Full Code
Dispo: CM working on SNF
DW RN
Anticipated Discharge: Within 24 hours
Subjective/Interval History
-
Date of Service: October 11, 2024
Objective Data
-
Labs:
Laboratory Results
10/11/24
06:37
WBC 7.9
Hgb 11.4 L
Hct 33.0 L
Plt Count 145
Sodium 134 L
Potassium 4.6
Chloride 98
Carbon Dioxide 28
BUN 26 H
Creatinine 1.0
Glucose 158 H
Calcium 8.6
Vital Signs:
Vital Signs
Temp Pulse Resp BP Pulse Ox
36.4 C 69 16 114/73 96
10/11/24 07:14 10/11/24 07:14 10/11/24 07:14 10/11/24 07:14 10/11/24 09:56
I&O
10/10/24 10/11/24 10/12/24
06:59 06:59 06:59
Intake Total 600 / 600 1140 / 1140
Output Total 850 / 850 1275 / 1275
Balance -250 / -250 -135 / -135
Review of Systems
-
All other systems: Reviewed and negative
Physical Exam
-
General: Well Developed, Well Nourished, No Apparent Distress, Comfortable and Conversant; Negative Respiratory Distress
HEENT: Normocephalic, Atraumatic, Nose Appears Normal and Ears Appear Normal; Negative Oxygen
Respiratory: Clear to Auscultation and Non Labored Respirations; Negative Accessory Resp Muscle Use
Cardiac: Regular Rhythm and S1/S2
GI: Soft, Nontender and Nondistended
Musculoskeletal: Other (LUE in splint)
Skin: Warm and Dry
Neuro: Awake, Alert and Oriented
Psych: Calm and Intact Judgement/Insight
Data Reviewed
-
Diagnostic Radiology: Report Reviewed by me
CT Scan: Report Reviewed by me
Labs: Labs Reviewed by me
--- NOTE | 2024-10-11 11:11 | W.PN.ORTHO ---
Today's Communication / Plan
-
Appreciate the primary team, continue Tx
Dispo per CM, appreciate their efforts
Splint/dressings to remain LUE
DVT ppx per the primary team
NWB LUE, encouraged ROM of digits
Elevation/ice for pain control
Platform walker likely beneficial for WB
Ortho continues to follow along
Assessment
.
Distal Motor Intact: Yes
Dressing:
Clean, dry and intact. Splint/dressings in place
Assessment:
POD#1 Left wrist ORIF
Overall doing/feeling well
Plan
.
Surgery / Date: Left wrist ORIF Oct 10 ([facility])
DVT Prophylaxis: Other (per primary)
Activity:
Out of bed ad mee with assistance if safe
Ranging of fingers encouraged
Discharge Plan: Other (per CM)
Subjective
.
.:
Patient resting comfortably in bed this AM. Not significant left wrist/hand pain
Vital Signs and Labs
.
Vital Signs and Labs:
Lab Results
10/11/24 06:37
10/11/24 06:37
Temp Pulse Resp BP Pulse Ox
97.5 F 69 16 114/73 96
10/11/24 07:14 10/11/24 07:14 10/11/24 07:14 10/11/24 07:14 10/11/24 09:56
[2024-10-11 12:09] LABS: Glucose - Point of Care 212 mg/dl (70-99)
[2024-10-11] MEDS: LOVENOX 40 MG SC (16:12)
[2024-10-11] MEDS: SENOKOT-S 1 TABLET PO ×2 (16:13→20:45)
[2024-10-11] MEDS: NOVOLOG FLEXPEN-LOW RESISTANCE 2 UNITS SC (16:13)
[2024-10-11] MEDS: MIRALAX 17 GRAMS PO (16:13)
[2024-10-11] MEDS: TYLENOL 650 MG PO (16:14)
[2024-10-11 16:44] LABS: Glucose - Point of Care 244 mg/dl (70-99)
[2024-10-11] MEDS: NOVOLOG FLEXPEN-LOW RESISTANCE SC (18:19)
[2024-10-11 21:35] LABS: Glucose - Point of Care 157 mg/dl (70-99)
[2024-10-12] VITALS (7 sets, daily range): BP systolic 108–152; BP diastolic 67–93; PULSE 72–73; O2SAT 94–96; BMI 37.1
--- NOTE | 2024-10-12 06:48 | W.PN.ORTHO ---
Today's Communication / Plan
-
84-year-old male POD #2 Left Distal Radius Open Reduction Internal Fixation 10/10/[address] Bolanos.
- Appreciate the primary team, continue Tx.
- Dispo per CM, appreciate their efforts.
- Splint/dressings to remain LUE.
- DVT ppx per the primary team (Lovenox).
- NWB LUE, encouraged ROM of digits.
- Elevation/ice for pain control.
- Follow-up as outpatient 10-14 days post-operatively. Orthopedic Surgery will sign-off at this time. Please reengage with any further questions or concerns.
Assessment
.
Distal Motor Intact: Yes
Dressing:
Clean, dry and intact. Splint/dressings in place.
Assessment:
POD#2 Left Distal Radius ORIF.
Plan
.
Surgery / Date: Left wrist ORIF Oct 10 ([facility])
DVT Prophylaxis: Lovenox
Activity:
Out of bed.
PT/OT
Discharge Plan: Other
Discharge Information:
Appreciate CM.
Subjective
.
.:
Patient resting comfortably in bed. Denies any significant left wrist pain; reports pain well controlled. Denies any paresthesias. Denies any new complaints or concerns at this time.
Vital Signs and Labs
.
Vital Signs and Labs:
Temp Pulse Resp BP Pulse Ox
97.6 F 76 18 116/69 93
10/12/24 03:18 10/12/24 03:18 10/12/24 03:18 10/12/24 03:18 10/12/24 03:18
[2024-10-12 07:01] LABS: Hematocrit 33.3 % (39.0-52.0); Hemoglobin 11.2 g/dL (13.0-18.0); Mean Corp Hgb Conc. 33.6 g/dL (33.0-37.0); Mean Corpuscular Hgb 34.6 pg (27.0-31.0); Mean Corpuscular Volume 102.8 fL (80.0-94.0); Mean Platelet Volume 10.2 fL (7.4-10.4); Platelet Count 143 10^3/uL (130-400); Red Blood Cell Count 3.24 10^6/uL (4.70-6.10); Red Cell Dist. Width 12.6 % (11.5-14.5); White Blood Cell Count 6.2 10^3/uL (4.8-10.8)
[2024-10-12 07:33] LABS: Blood Urea Nitrogen 27 mg/dl (9-20); Calcium 8.8 mg/dl (8.4-10.2); Carbon Dioxide 28 mmol/L (22-30); Chloride 98 mmol/L (98-107); Estimated Creatinine Clearance 55 ml/min; Glucose 144 mg/dl (70-99); Potassium 4.3 mmol/L (3.5-5.1); Sodium 136 mmol/L (135-145); eGFR > 60.00
[2024-10-12 08:25] LABS: Glucose - Point of Care 154 mg/dl (70-99)
[2024-10-12] MEDS: LIDOCAINE 4% PATCH 1 PATCH TOPICAL (08:39)
[2024-10-12] MEDS: SENOKOT-S 1 TABLET PO (08:40)
[2024-10-12] MEDS: PROZAC 40 MG PO (08:40)
[2024-10-12] MEDS: CRESTOR 5 MG PO (08:40)
[2024-10-12] MEDS: MIRALAX 17 GRAMS PO (08:40)
[2024-10-12] MEDS: FLOMAX 0.4 MG PO (08:40)
[2024-10-12] MEDS: NOVOLOG FLEXPEN-LOW RESISTANCE 1 UNITS SC ×2 (08:45→12:43)
[2024-10-12] MEDS: TYLENOL 650 MG PO ×2 (08:49→20:34)
[2024-10-12] MEDS: ROXICODONE 5 MG PO (08:50)
--- NOTE | 2024-10-12 11:05 | W.PN.HOSP.TC ---
Today's Communication/Plan
-
see A/P
Assessment / Plan
Assessment / Plan
HPI: 84 y/o male past medical history of symptomatic bradycardia s/p pacemaker, valvular heart disease, hypertension, and diabetes mellitus; who presented following a fall, complaining of left hip and wrist pain.
Patient states he went out to get something from his car. There was a large block of ice on the ground which he tried to breakup but slipped and fell landing on his left side.
Work-up in ED revealed left wrist fracture. Due to severity of left hip pain, patient is unable to ambulate unassisted.
A/P:
# Mechanical Fall resulting in Left Distal Radius Fracture
s/p L wrist ORIF 10/10 by ortho
PT OT recc SNF
pain control with oxycodone,
added bowel regimen Senokot-S and Miralax for constipation
Dulcolax OR x1 today
DVT ppx with Lovenox SQ
# Left Hip Pain
X-Ray negative for fracture
Follow up CT also negative for acute abnormalities.
PT OT recc SNF
# Valvular Heart Disease: Moderate Aortic Stenosis. Mild Mitral stenosis
Monitor Daily Weights
# Hyperlipidemia
Continue Crestor
# Diabetes Mellitus, Type II
Continue diabetic diet
Monitor sugars and continue coverage insulin
# BPH
Continue Flomax
# Hx Symptomatic Bradycardia s/p Pacemaker
DVT proph: SCDs
Code Status: Full Code
Dispo: CM working on SNF
Anticipated Discharge: Within 24 hours
Subjective/Interval History
-
Date of Service: October 12, 2024
Objective Data
-
Labs:
Laboratory Results
10/12/24
05:37
WBC 6.2
Hgb 11.2 L
Hct 33.3 L
Plt Count 143
Sodium 136
Potassium 4.3
Chloride 98
Carbon Dioxide 28
BUN 27 H
Creatinine 1.1
Glucose 144 H
Calcium 8.8
Vital Signs:
Vital Signs
Temp Pulse Resp BP Pulse Ox
36.3 C 80 20 138/71 95
10/12/24 08:00 10/12/24 08:00 10/12/24 08:00 10/12/24 08:00 10/12/24 08:00
I&O
10/11/24 10/12/24 10/13/24
06:59 06:59 06:59
Intake Total 1140 / 1140 1200 / 1200 480 / 480
Output Total 1275 / 1275 700 / 700 350 / 350
Balance -135 / -135 500 / 500 130 / 130
Review of Systems
-
All other systems: Reviewed and negative
Physical Exam
-
General: Well Developed, Well Nourished, No Apparent Distress, Comfortable and Conversant; Negative Respiratory Distress
HEENT: Normocephalic, Atraumatic, Nose Appears Normal and Ears Appear Normal; Negative Oxygen
Respiratory: Clear to Auscultation and Non Labored Respirations; Negative Accessory Resp Muscle Use
Cardiac: Regular Rhythm and S1/S2
GI: Soft, Nontender and Nondistended
Musculoskeletal: Other (LUE in splint)
Skin: Warm and Dry
Neuro: Awake, Alert and Oriented
Psych: Calm and Intact Judgement/Insight
Data Reviewed
-
Diagnostic Radiology: Report Reviewed by me
CT Scan: Report Reviewed by me
Labs: Labs Reviewed by me
--- NOTE | 2024-10-12 11:35 | CM ---
Addendum entered by Magda Devlin 10/12/24 15:46:
Per Ebony at [facility] - do not accept [employer]
Discussed with pt - requested [facility] and [facility] - unable to accept due to insurance - pt updated
Pt requested [facility] or [facility] can accept
[facility] to [facility] auth [phone]
Spoke with Veronica
Auth Reference # [id number]
Clinicals faxed to [phone]
Plan - transfer to [facility] when auth obtained and medically stable
Original Note:
Pt medically ready for SNF
Referral sent to [facility] previously
Contacted Ebony at [facility] to review referral and check on bed availability
Will need auth
Plan - snf when bed and auth obtained
[2024-10-12] MEDS: DULCOLAX 10 MG RECTAL (12:17)
[2024-10-12 12:37] LABS: Glucose - Point of Care 181 mg/dl (70-99)
[2024-10-12 17:50] LABS: Glucose - Point of Care 217 mg/dl (70-99)
[2024-10-12] MEDS: LOVENOX 40 MG SC (18:14)
[2024-10-12] MEDS: NOVOLOG FLEXPEN-LOW RESISTANCE 2 UNITS SC (18:15)
[2024-10-12] MEDS: SENOKOT-S PO (20:35)
[2024-10-12 21:45] LABS: Glucose - Point of Care 185 mg/dl (70-99)
[2024-10-13 05:46] VITALS: BMI 36.3
[2024-10-13 06:49] LABS: Hematocrit 32.7 % (39.0-52.0); Hemoglobin 10.9 g/dL (13.0-18.0); Mean Corp Hgb Conc. 33.3 g/dL (33.0-37.0); Mean Corpuscular Hgb 34.3 pg (27.0-31.0); Mean Corpuscular Volume 102.8 fL (80.0-94.0); Mean Platelet Volume 10.3 fL (7.4-10.4); Platelet Count 156 10^3/uL (130-400); Red Blood Cell Count 3.18 10^6/uL (4.70-6.10); Red Cell Dist. Width 12.8 % (11.5-14.5)
[2024-10-13 07:13] LABS: Glucose - Point of Care 162 mg/dl (70-99)
[2024-10-13 07:14] LABS: Blood Urea Nitrogen 25 mg/dl (9-20); Calcium 8.8 mg/dl (8.4-10.2); Carbon Dioxide 29 mmol/L (22-30); Chloride 100 mmol/L (98-107); Estimated Creatinine Clearance 59 ml/min; Glucose 155 mg/dl (70-99); Potassium 4.4 mmol/L (3.5-5.1); Sodium 136 mmol/L (135-145); eGFR > 60.00
[2024-10-13] MEDS: FLOMAX 0.4 MG PO (07:54)
[2024-10-13] MEDS: CRESTOR 5 MG PO (07:54)
[2024-10-13] MEDS: PROZAC 40 MG PO (07:54)
[2024-10-13] MEDS: SENOKOT-S 1 TABLET PO (07:55)
[2024-10-13] MEDS: LIDOCAINE 4% PATCH 1 PATCH TOPICAL (07:55)
[2024-10-13] MEDS: MIRALAX 17 GRAMS PO (07:55)
[2024-10-13] MEDS: NOVOLOG FLEXPEN-LOW RESISTANCE 1 UNITS SC ×2 (07:55→12:31)
[2024-10-13 07:58] VITALS: BP 136/79
--- NOTE | 2024-10-13 09:17 | CM ---
Addendum entered by Magda Devlin 10/13/24 12:27:
Pt and family updated of planned transfer to
Given IMM
Transport via wheelchair van - pt given cost and phone number for payment
Transport scheduled for 12:30PM
Pt and facility aware
Plan - transfer to [facility]
R - [phone]
F - [phone]
Original Note:
Received call from [facility] rep Julita
Pt approved for SNF - start date 10/13 -10/17
NRD 10/17 - reviewer Krystle Rodriguez
f - [phone]
Reference # - [id number]
Plan - transfer to [facility] when medically stable
R - [phone]
F - [phone]
--- NOTE | 2024-10-13 11:09 | W.PN.HOSP.TC ---
Addendum entered and electronically signed by Gwen Kelsey MD 10/13/24 14:38:
total DC time 37 min
Original Note:
Today's Communication/Plan
-
for SNF today
Assessment / Plan
Assessment / Plan
HPI: 84 y/o male past medical history of symptomatic bradycardia s/p pacemaker, valvular heart disease, hypertension, and diabetes mellitus; who presented following a fall, complaining of left hip and wrist pain.
Patient states he went out to get something from his car. There was a large block of ice on the ground which he tried to breakup but slipped and fell landing on his left side.
Work-up in ED revealed left wrist fracture. Due to severity of left hip pain, patient is unable to ambulate unassisted.
A/P:
# Mechanical Fall resulting in Left Distal Radius Fracture
s/p L wrist ORIF 10/10 by ortho
PT OT recc SNF
pain control with oxycodone,
added bowel regimen Senokot-S and Miralax for constipation. Dulcolax [place] x1
DVT ppx with Lovenox SQ
# Left Hip Pain
X-Ray negative for fracture
Follow up CT also negative for acute abnormalities.
PT OT recc SNF
# Valvular Heart Disease: Moderate Aortic Stenosis. Mild Mitral stenosis
Monitor Daily Weights
# Hyperlipidemia
Continue Crestor
# Diabetes Mellitus, Type II
Continue diabetic diet
Monitor sugars and continue coverage insulin
# BPH
Continue Flomax
# Hx Symptomatic Bradycardia s/p Pacemaker
DVT proph: SCDs
Code Status: Full Code
Dispo: CM working on SNF
DW daughter and granddaughter at bedside
DW RN
DW CM
Anticipated Discharge: Today
Subjective/Interval History
-
Date of Service: October 13, 2024
Objective Data
-
Labs:
Laboratory Results
10/13/24
05:51
WBC 6.0
Hgb 10.9 L
Hct 32.7 L
Plt Count 156
Sodium 136
Potassium 4.4
Chloride 100
Carbon Dioxide 29
BUN 25 H
Creatinine 1.0
Glucose 155 H
Calcium 8.8
Vital Signs:
Vital Signs
Temp Pulse Resp BP Pulse Ox
36.3 C 94 18 136/79 95
10/13/24 07:58 10/13/24 07:58 10/13/24 07:58 10/13/24 07:58 10/13/24 07:58
I&O
10/12/24 10/13/24 10/14/24
06:59 06:59 06:59
Intake Total 1200 / 1200 900 / 900
Output Total 700 / 700 1225 / 1225
Balance 500 / 500 -325 / -325
Review of Systems
-
All other systems: Reviewed and negative
Physical Exam
-
General: Well Developed, Well Nourished, No Apparent Distress, Comfortable and Conversant; Negative Respiratory Distress
HEENT: Normocephalic, Atraumatic, Nose Appears Normal and Ears Appear Normal; Negative Oxygen
Respiratory: Clear to Auscultation and Non Labored Respirations; Negative Accessory Resp Muscle Use
Cardiac: Regular Rhythm and S1/S2
GI: Soft, Nontender and Nondistended
Musculoskeletal: Other (LUE in splint)
Skin: Warm and Dry
Neuro: Awake, Alert and Oriented
Psych: Calm and Intact Judgement/Insight
Data Reviewed
-
Diagnostic Radiology: Report Reviewed by me
CT Scan: Report Reviewed by me
Labs: Labs Reviewed by me
[2024-10-13 11:55] LABS: Glucose - Point of Care 189 mg/dl (70-99)
[2024-10-13 12:03] VITALS: BP 124/74
--- NOTE | 2024-10-13 13:19 | W.DCSUMMARY ---
Discharge Summary
Discharge Data
Date of Admission: 10/08/24
Date of Discharge: 10/13/24
-
Pending Results: No
Hospital Course
Principal Diagnosis:
Mechanical Fall resulting in Left Distal Radius Fracture, s/p Left wrist ORIF 10/10 by ortho
Chronic Diagnoses:�
Valvular Heart Disease: Moderate Aortic Stenosis. Mild Mitral stenosis
Hyperlipidemia, on Crestor
Diabetes Mellitus, Type II
Benign prostate hypertrophy, on Flomax
Symptomatic Bradycardia s/p Pacemaker
Consultations:�
Orthopedic
Procedures:�
Left wrist ORIF 10/10 by ortho
Clinical course:�
This is a 84-year-old male with past medical history as stated above, who presented with mechanical fall, resulting in left wrist and left hip pain.
Problem 1:
Mechanical Fall resulting in Left Distal Radius Fracture.
He underwent L wrist ORIF on 10/10 by ortho.
He was discharged to SNF per PT OT recommendation.
He can continue oxycodone as needed for pain control.
He was discharged with bowel regimen Senokot-S as needed for constipation while on opioid.
Of note, although the patient complained of left hip pain, his left hip x-ray was negative for fracture. Lidocaine patch was added which helped with his hip pain.
As for the rest of his medical problems, they were stable during his hospital stay.
Discharge Plan
-
Patient Disposition: Prison/SNF
Discharge Diagnosis/Procedures: Mechanical Fall resulting in Left Distal Radius Fracture status post Left wrist ORIF 10/10 by ortho
Condition: Fair
Diet: As tolerated
Activity: As tolerated
Additional Activity: Non-weightbearing of left upper extremity, encourage range of motion of digits
Driving Restrictions: No driving
Referrals:
Yong Gifford, DO [Family Provider] - in less than 1 week
Erich Bolanos MD [Active] - in two weeks
Prescriptions:
New
oxycodone 5 mg Tablet
5 mg PO Q4HPRN PRN (Reason: moderate pain) Qty: 5 0RF
sennosides-docusate sodium 8.6-50 mg Tablet
1 tab PO BID PRN (Reason: Constipation) Qty: 20 0RF
Continued
tamsulosin 0.4 MG capsule
0.4 mg PO DAILY
fluoxetine 20 MG capsule
40 mg PO DAILY
PreserVision AREDS-2 1 EACH capsule
2 ea PO DAILY
rosuvastatin 5 MG tablet
5 mg PO DAILY
oxycodone-acetaminophen 5-325 mg Tablet
1 tab PO HSPRN PRN (Reason: severe pain) Qty: 5 0RF
oxycodone-acetaminophen 5 MG/325 MG tablet
0.5 tab PO DAILY Qty: 5 0RF
Discharge Orders:
Discharge Patient (As Directed); Ordered 10/13/24
Ordered By: Gwen Kelsey
Discharge Date and Time
Discharge Date/Time: 10/13/24 12:55
Print Language: CITIZEN OF [place]
== END 2024-10-13 12:55 | DRG 512 ==
LOC: 2 SOUTH 17:33
PROVIDERS: Physician Assistant Medical; ADMITTING PHYSICIAN Internal Medicine; ATTENDING PHYSICIAN Internal Medicine; EMERGENCY PHYSICIAN Emergency Medicine; FAMILY PHYSICIAN Family Medicine; OTHER PHYSICIAN Orthopaedic Surgery Hand Surgery
PROC: 0PSJ04Z Reposition Left Radius with Internal Fixation Device, Open Approach (ICD-10-PCS; 2024-10-10)
DX: S52.572A Other intraarticular fracture of lower end of left radius, initial encounter for closed fracture (principal); S70.02XA Contusion of left hip, initial encounter; E11.22 Type 2 diabetes mellitus with diabetic chronic kidney disease; E78.00 Pure hypercholesterolemia, unspecified; G47.33 Obstructive sleep apnea (adult) (pediatric); G89.29 Other chronic pain; I12.9 Hypertensive chronic kidney disease with stage 1 through stage 4 chronic kidney disease, or unspecified chronic kidney disease; D63.1 Anemia in chronic kidney disease; I25.10 Atherosclerotic heart disease of native coronary artery without angina pectoris; I35.0 Nonrheumatic aortic (valve) stenosis; J45.909 Unspecified asthma, uncomplicated; K59.00 Constipation, unspecified; M21.371 Foot drop, right foot; N18.2 Chronic kidney disease, stage 2 (mild); N40.0 Benign prostatic hyperplasia without lower urinary tract symptoms; W00.0XXA Fall on same level due to ice and snow, initial encounter; R00.1 Bradycardia, unspecified; Z96.642 Presence of left artificial hip joint; Z96.653 Presence of artificial knee joint, bilateral; Z79.899 Other long term (current) drug therapy; Z95.0 Presence of cardiac pacemaker
CPT/HCPCS: 29125; 72192; 73030; 73110; 73502; 80048; 80053; 82962; 83036; 85027; 86850; 86900; 86901; 96374; 96375; 96376; 97163; 97167; 97530; 97535; 99285; C1713

== ENCOUNTER → 2025-03-28 09:42 | Outpatient (REF) | payer OTHER, SELFPAY | LOC: EMG 09:42 | PROVIDERS: ATTENDING PHYSICIAN Student in an Organized Health Care Education/Training Program; PRIMARYCARE PHYSICIAN Family Medicine | DX: S52.592D Other fractures of lower end of left radius, subsequent encounter for closed fracture with routine healing (principal); Z47.89 Encounter for other orthopedic aftercare; M25.532 Pain in left wrist | CPT/HCPCS: 95886; 95909 ==

== ENCOUNTER → 2025-05-18 13:41 | Outpatient (REF) | payer OTHER, SELFPAY | LOC: MRI 13:41 | PROVIDERS: ATTENDING PHYSICIAN Physical Medicine & Rehabilitation; FAMILY PHYSICIAN Family Medicine; REFERRING PHYSICIAN Internal Medicine Cardiovascular Disease | DX: M54.16 Radiculopathy, lumbar region (principal) | CPT/HCPCS: 72148; 76014; 76015 ==

== ENCOUNTER → 2025-07-25 09:21 | Outpatient (REF) | payer OTHER, SELFPAY | LOC: HWRCS 09:21 | PROVIDERS: ATTENDING PHYSICIAN Physician Assistant Medical; FAMILY PHYSICIAN Family Medicine | DX: I35.0 Nonrheumatic aortic (valve) stenosis (principal); R06.02 Shortness of breath | CPT/HCPCS: 93306 ==

== ENCOUNTER 2025-08-10 16:19 | Emergency (ER) | payer OTHER, SELFPAY ==
[2025-08-10 16:58] LABS: Hematocrit 37.7 % (39.0-52.0); Hemoglobin 12.2 g/dL (13.0-18.0); Mean Corp Hgb Conc. 32.4 g/dL (33.0-37.0); Mean Corpuscular Volume 103.9 fL (80.0-94.0); Nucleated Red Blood Cells % 0 % (-); Platelet Count 180 10^3/uL (130-400); Red Cell Dist. Width 12.8 % (11.5-14.5)
[2025-08-10 16:59] LABS: Urine Character Clear (Clear)
[2025-08-10 17:20] LABS: ALT (SGPT) 20 U/L (0-50); AST (SGOT) 20 U/L (17-59); Albumin 4.7 g/dl (3.5-5.0); Alkaline Phosphatase 71 U/L (38-126); Blood Urea Nitrogen 31 mg/dl (9-20); Calcium 9.2 mg/dl (8.4-10.2); Carbon Dioxide 26 mmol/L (22-30); Chloride 102 mmol/L (98-107); Glucose 150 mg/dl (70-99); Lipase 275 U/L (23-300); Potassium 3.9 mmol/L (3.5-5.1); Sodium 137 mmol/L (135-145); Total Protein 7.9 g/dl (6.3-8.2); eGFR 58.53
[2025-08-10 18:30] VITALS: BP 118/78
[2025-08-10 19:00] VITALS: BP 101/54
[2025-08-10 20:00] VITALS: BP 99/71
[2025-08-10] MEDS: TORADOL 15 MG IV (20:08)
--- NOTE | 2025-08-10 20:34 | ED.GENMED ---
History of Present Illness
General
Chief Complaint: Abdominal Pain
Source: patient
Exam Limitations: none
Time Seen by Provider: 08/10/25 19:17
History of Present Illness
History of Present Illness:
85-year-old male presents complaining of left sided abdominal pain starting this morning. Actually saw his right sided pain but transferred to the left. Is been pretty steady sharp pain to the left side of the abdomen does not radiate to the back
without associated urinary symptoms. He does note that he has been having trouble moving his bowels today which is usually not an issue. No fever or vomiting. Pain does not radiate to his leg. He has a history of kidney stones and this feels
similar. No prior history of diverticulitis.
Past History
Past History
ED Past Medical History: HTN, Hypercholesterolemia (BPH, renal calculi, arthritis, degenerative joint disease, osteoarthritis, chronic low back pain,) and Other (Kidney stones)
ED Past Surgical History: Appendectomy, Orthopedic (Right total knee) and Other (Bilateral cataracts, kidney stone extraction)
Social History
Tobacco: Non-smoker
Alcohol: Occasional
Drug: None
Personal:
Living: with family
Employment: Employed
Family History
Family History: Other (nc)
Phy Exam
Physical Exam
Physical Exam:
General: Well-appearing male no acute respiratory distress
HEENT: Normal cephalic atraumatic
Heart: Regular rate and rhythm
Lungs: Clear no wheeze
Abdomen is soft tender to the left lower quadrant no guarding nondistended
Extremities: No cyanosis
Course
Orders/Labs/Results
Orders:
Orders
08/10/25 16:45
Complete Blood Count/With Diff Urgent
Comprehensive Metabolic Panel Urgent
Lipase Urgent
Urinalysis Reflex To Culture Urgent
Date Specimen was Collected: 08/10/25
Time Specimen was Collected: 16:31
Urine Microscopic Reflex Cult Urgent
08/10/25 19:47
CT Abd/pelvis W Iv Cont Urgent
Comment:
Reason For Exam: llq pain
Ketorolac [Toradol] 15 mg IV NOW STA
08/10/25 21:07
Amoxicillin 875 mg/Clav 125 mg [Augmentin 875 mg/125 mg] 1 tablet PO NOW STA
Abnormal Lab Results
08/10/25
16:45
RBC 3.63 L 10^6/uL
(4.70-6.10)
Hgb 12.2 L g/dL
(13.0-18.0)
Hct 37.7 L %
(39.0-52.0)
MCV 103.9 H fL
(80.0-94.0)
MCH 33.6 H pg
(27.0-31.0)
MCHC 32.4 L g/dL
(33.0-37.0)
Absolute Neuts (auto) 7.5 H 10^3/uL
(1.4-6.5)
Absolute Lymphs (auto) 1.1 L 10^3/uL
(1.2-3.4)
Absolute Monos (auto) 1.5 H 10^3/uL
(0.1-0.6)
Lymphocytes % 10.7 L %
(20.5-51.1)
Monocytes % 14.7 H %
(1.7-9.3)
BUN 31 H mg/dl
(9-20)
Glucose 150 H mg/dl
(70-99)
Total Bilirubin 1.6 H mg/dl
(0.2-1.3)
Ur Occult Blood Reflex 1+ A
(Negative)
Urine RBC 3-6 A /HPF
(0-2)
08/10/25 16:45
08/10/25 16:45
Vital Signs
Initial and Last Documented VS:
Initial Vital Signs
Temp Pulse Resp Pulse Ox
98.0 F 87 18 96
08/10/25 16:24 08/10/25 16:24 08/10/25 16:24 08/10/25 16:24
Last Documented Vital Signs
Temp Pulse Resp BP Pulse Ox
98.0 F 84 20 99/71 97
08/10/25 16:24 08/10/25 20:00 08/10/25 20:00 08/10/25 20:00 08/10/25 20:37
MDM/Problems Addressed
Differential Diagnosis Includes:
Left lower abdominal pain. Consider constipation versus bowel obstruction versus diverticulitis or renal colic
Urinalysis with couple red blood cells but no signs of infection. Labs reviewed normal white count. CT pending
*Pulse Oximetry
SaO2: 97
Oxygen Mode of Delivery: Room air
Patient hypoxic: no
*Critical Care Note
Total Time (30-74mins, 75-104mins- exclusive of procedures): Not Applicable
Update Note
Update Note:
CT consistent with acute uncomplicated mild diverticulitis. White count normal. Advise clear liquids and will start on Augmentin. Return precautions given
ED Attending Note
-
Portions of this chart may have been created with voice recognition software.� Occasional wrong word or��sound alike� substitutions may have occurred due to the inherent limitations of voice recognition software.
Discharge Plan
Departure
Patient Disposition: Home (Routine Discharge)
Date of Disposition: 08/10/25
Time of Disposition: 21:08
Patient with high blood pressure during this ER visit?: No
Discharge Problem:
Acute diverticulitis
Instructions: Diverticulitis (DC)
Prescriptions:
New
amoxicillin-pot clavulanate 875-125 mg tablet
1 tab PO BID Qty: 20 0RF
No Action
tamsulosin 0.4 MG capsule
0.4 mg PO DAILY
fluoxetine 20 MG capsule
40 mg PO DAILY
PreserVision AREDS-2 1 EACH capsule
2 ea PO DAILY
rosuvastatin 5 MG tablet
5 mg PO DAILY
oxycodone 5 mg Tablet
5 mg PO Q4HPRN PRN (Reason: moderate pain) Qty: 5 0RF
sennosides-docusate sodium 8.6-50 mg Tablet
1 tab PO BID PRN (Reason: Constipation) Qty: 20 0RF
oxycodone-acetaminophen 5-325 mg Tablet
1 tab PO HSPRN PRN (Reason: severe pain) Qty: 5 0RF
oxycodone-acetaminophen 5 MG/325 MG tablet
0.5 tab PO DAILY Qty: 5 0RF
Referrals:
Yong Gifford, DO [Family Provider, Family Practice]
Activity Restrictions/Additional Instructions:
Drink plenty of clear liquids. Use antibiotic as directed. Return here for increasing pain fever or vomiting otherwise follow-up with your doctor
Interventions
Interventions:
*Risk Screen - Suicide Last Done: 08/10/25 16:24
*General Assessment Last Done: 08/10/25 16:24
*Neglect/Abuse Screening Last Done: 08/10/25 20:14
*ED COVID-19 Vaccine History Last Done: 08/10/25 16:24
*ED Influenza Vaccine History Last Done: 08/10/25 16:24
ZG-Luzpzs-Uwxdooyfoc Assessment Last Done: 08/10/25 20:14
Discharge Date and Time
Print Language: [place]UG[place]E
[2025-08-10] MEDS: AUGMENTIN 875 MG/125 MG 1 TABLET PO (21:28)
== END 2025-08-10 22:00 | disposition home or self-care (01) ==
LOC: EMR 16:19
PROVIDERS: Emergency Medicine; EMERGENCY PHYSICIAN Student in an Organized Health Care Education/Training Program; FAMILY PHYSICIAN Family Medicine
DX: K57.32 Diverticulitis of large intestine without perforation or abscess without bleeding (principal); R10.9 Unspecified abdominal pain; I10 Essential (primary) hypertension; E78.00 Pure hypercholesterolemia, unspecified; N40.0 Benign prostatic hyperplasia without lower urinary tract symptoms; M19.90 Unspecified osteoarthritis, unspecified site; Z87.442 Personal history of urinary calculi; Z90.49 Acquired absence of other specified parts of digestive tract; Z96.642 Presence of left artificial hip joint
CPT/HCPCS: 99284; 96374; 74177; 80053; 81003; 81015; 83690; 85025; Q9967

== ENCOUNTER 2025-09-28 14:58 | Inpatient (IN) | payer OTHER, SELFPAY ==
[2025-09-27] VITALS (9 sets, daily range): BP systolic 97–120; BP diastolic 58–76; BMI 35.6
[2025-09-27] MEDS: ZOFRAN ODT (ORALLY DISINTEGRATING) 4 MG PO (12:05)
--- NOTE | 2025-09-27 12:35 | ED.GENMED ---
History of Present Illness
<Kaiser Peña PA-C - Last Filed: 09/27/25 16:36>
General
Chief Complaint: Abdominal Symptoms
Time Seen by Provider: 09/27/25 12:28
History of Present Illness
History of Present Illness:
85-year-old male with history of CAD, hypertension, hyperlipidemia, heart block status post pacemaker, and [id number] diabetes presents to the emergency department for evaluation of intractable vomiting beginning this morning associated
with generalized weakness. Denies any chest pain, shortness of breath, or abdominal pain. Spouse states he has had ongoing exertional dyspnea for several weeks that has been undiagnosed. Denies any fevers or chills. No hematemesis or melena.
Denies any diarrhea. Prior abdominal surgical history and limited to appendectomy
Past History
<Kaiser Peña PA-C - Last Filed: 09/27/25 16:36>
Past History
ED Past Medical History: HTN, Hypercholesterolemia (BPH, renal calculi, arthritis, degenerative joint disease, osteoarthritis, chronic low back pain,) and Other (Kidney stones)
ED Past Surgical History: Appendectomy, Orthopedic (Right total knee) and Other (Bilateral cataracts, kidney stone extraction)
Social History
Tobacco: Non-smoker
Alcohol: Occasional
Drug: None
Personal:
Living: with family
Employment: Employed
Family History
Family History: Other (nc)
Review of Systems
<Kaiser Peña PA-C - Last Filed: 09/27/25 16:36>
Review of Systems
Allergies reviewed?: Yes
All Other Systems: ROS reviewed and negative except as documented in HPI and ROS
Phy Exam
<Kaiser Peña PA-C - Last Filed: 09/27/25 16:36>
Physical Exam
Physical Exam:
GEN: Ill-appearing, actively retching
HEENT: Oral mucosa moist, no scleral icterus
Cardiac: Regular rate and rhythm
Lung: No respiratory distress, no tachypnea, lungs clear
Abdomen: Soft, grossly nontender to palpation
MSK: No gross deformity or injuries
Skin: Good color, no pallor or jaundice, no rashes
Neuro: AO x3, moves all extremities freely
Psych: Calm, cooperative
Course
<Kaiser Peña PA-C - Last Filed: 09/27/25 16:36>
Orders/Labs/Results
Orders:
Orders
09/27/25 12:04
Ondansetron Orally Disint [Zofran Odt (Orally Disintegrating)] 4 mg .ROUTE .STK-MED ONE
Ondansetron Orally Disint [Zofran Odt (Orally Disintegrating)] 4 mg PO NOW STA
09/27/25 12:16
Electrocardiogram (*1) Urgent
Reason for Study: Abdominal Pain
EKG- Treatment ONCE
09/27/25 12:34
Interrogate Pacemaker- Treatment ONCE
Comment: MEDTRONIC
0.9% Sodium Chloride 1000 ml [Nss] 1,000 ml IV BOLUS
Ondansetron Injectable [Zofran] 4 mg IV NOW STA
09/27/25 12:39
Complete Blood Count/With Diff Urgent
Comprehensive Metabolic Panel Urgent
Ferritin Urgent
Comment: ADD ON
Folate Urgent
Comment: ADD ON
Iron Urgent
Lipase Urgent
Total Iron Binding Urgent
Vitamin B12 Urgent
Comment: ADD ON
09/27/25 13:34
Pantoprazole [Protonix IV] 40 mg IV NOW STA
09/27/25 13:40
Type+Screen Urgent
09/27/25 13:48
Add On- LAB Urgent
Tests Added?: ferritin, TIBC, iron
09/27/25 14:27
Add On- LAB Urgent
Tests Added?: B12, folate
09/27/25 15:57
Admit/Transfer Patient As Directed
Co-Sign Provider:
Level of Care: Observation services
Assign to:: Telemetry
Physician / Group: Miah Kaplan
Diagnosis: anemia, intractable vomiting
Reason for Telemetry: Arrhythmia
Date to Stop Telemetry: 09/30/25
Time to Stop Telemetry: 11:00
09/27/25 15:58
PRN Pain Medication Management As Directed
May give lesser potent ordered pain med per pt: Yes
preference::
Protocol:: Medication orders for pain may be administered in a
manner that supports deferring to patient preference
when the pt is:
- Requesting an ordered lesser potent pain medication.
Least to most potent pain medications are defined
as: acetaminophen < NSAID < tramadol < opioids
(morphine, oxycodone, hydromorphone).
- Requesting a lesser dose of the same medication IF
ORDERED.
- Requesting a less intrusive route of administration
if both routes are prescribed by the provider (PO <
IV).
09/27/25 15:59
Code Status As Directed
Resuscitation Status: Do not resuscitate
Reached after discussion with pt or family/Healthcare POA: Yes
Decision communicated with: patient
09/27/25 16:00
DNR Bracelet Application ONCE
09/27/25 16:19
Abdomen/Pelvis w Contrast CT [CT Abd/pelvis W Iv Cont] Urgent
Comment:
Reason For Exam: intractable vomiting
09/27/25 16:20
CR Chest - 2 Views Urgent
Comment:
Reason For Exam: intratable vomiting
09/27/25 16:24
Urinalysis Urgent
09/30/25 11:00
DC Protocol for Telemetry ONCE
Abnormal Lab Results
09/27/25
12:39
RBC 2.95 L 10^6/uL
(4.70-6.10)
Hgb 9.2 L g/dL
(13.0-18.0)
Hct 28.7 L %
(39.0-52.0)
MCV 97.3 H fL
(80.0-94.0)
MCH 31.2 H pg
(27.0-31.0)
MCHC 32.1 L g/dL
(33.0-37.0)
Absolute Neuts (auto) 6.9 H 10^3/uL
(1.4-6.5)
Absolute Lymphs (auto) 0.5 L 10^3/uL
(1.2-3.4)
Neutrophils % 85.0 H %
(42.2-75.2)
Lymphocytes % 6.4 L %
(20.5-51.1)
BUN 24 H mg/dl
(9-20)
Glucose 280 H mg/dl
(70-99)
Iron 34 L ug/dl
(49-181)
% Saturation 8 L %
(20-50)
Ferritin 9.9 L ng/ml
(17.9-464.0)
Vitamin B12 218 L pg/ml
(239-931)
09/27/25 12:39
09/27/25 12:39
Vital Signs
Initial and Last Documented VS:
Initial Vital Signs
Temp Pulse Resp BP Pulse Ox
98.2 F 99 16 105/76 95
09/27/25 11:59 09/27/25 11:59 09/27/25 11:59 09/27/25 11:59 09/27/25 11:59
Last Documented Vital Signs
Temp Pulse Resp BP Pulse Ox
98.2 F 88 20 116/66 93
09/27/25 11:59 09/27/25 14:29 09/27/25 14:29 09/27/25 14:29 09/27/25 14:29
Trelt;Herbert Jain, - Last Filed: 09/27/25 14:42>
Orders/Labs/Results
Orders:
Orders
09/27/25 12:04
Ondansetron Orally Disint [Zofran Odt (Orally Disintegrating)] 4 mg .ROUTE .STK-MED ONE
Ondansetron Orally Disint [Zofran Odt (Orally Disintegrating)] 4 mg PO NOW STA
09/27/25 12:16
Electrocardiogram (*1) Urgent
Reason for Study: Abdominal Pain
EKG- Treatment ONCE
09/27/25 12:34
Interrogate Pacemaker- Treatment ONCE
Comment: MEDTRONIC
0.9% Sodium Chloride 1000 ml [Nss] 1,000 ml IV BOLUS
Ondansetron Injectable [Zofran] 4 mg IV NOW STA
09/27/25 12:39
Complete Blood Count/With Diff Urgent
Comprehensive Metabolic Panel Urgent
Ferritin Urgent
Comment: ADD ON
Folate Urgent
Comment: ADD ON
Iron Urgent
Lipase Urgent
Total Iron Binding Urgent
Vitamin B12 Urgent
Comment: ADD ON
09/27/25 13:34
Pantoprazole [Protonix IV] 40 mg IV NOW STA
09/27/25 13:40
Type+Screen Urgent
09/27/25 13:48
Add On- LAB Urgent
Tests Added?: ferritin, TIBC, iron
09/27/25 14:27
Add On- LAB Urgent
Tests Added?: B12, folate
09/27/25 15:57
Admit/Transfer Patient As Directed
Co-Sign Provider:
Level of Care: Observation services
Assign to:: Telemetry
Physician / Group: Miah Kaplan
Diagnosis: anemia, intractable vomiting
Reason for Telemetry: Arrhythmia
Date to Stop Telemetry: 09/30/25
Time to Stop Telemetry: 11:00
09/27/25 15:58
PRN Pain Medication Management As Directed
May give lesser potent ordered pain med per pt: Yes
preference::
Protocol:: Medication orders for pain may be administered in a
manner that supports deferring to patient preference
when the pt is:
- Requesting an ordered lesser potent pain medication.
Least to most potent pain medications are defined
as: acetaminophen < NSAID < tramadol < opioids
(morphine, oxycodone, hydromorphone).
- Requesting a lesser dose of the same medication IF
ORDERED.
- Requesting a less intrusive route of administration
if both routes are prescribed by the provider (PO <
IV).
09/27/25 15:59
Code Status As Directed
Resuscitation Status: Do not resuscitate
Reached after discussion with pt or family/Healthcare POA: Yes
Decision communicated with: patient
09/27/25 16:00
DNR Bracelet Application ONCE
09/27/25 16:19
Abdomen/Pelvis w Contrast CT [CT Abd/pelvis W Iv Cont] Urgent
Comment:
Reason For Exam: intractable vomiting
09/27/25 16:20
CR Chest - 2 Views Urgent
Comment:
Reason For Exam: intratable vomiting
09/27/25 16:24
Urinalysis Urgent
09/30/25 11:00
DC Protocol for Telemetry ONCE
Abnormal Lab Results
09/27/25
12:39
RBC 2.95 L 10^6/uL
(4.70-6.10)
Hgb 9.2 L g/dL
(13.0-18.0)
Hct 28.7 L %
(39.0-52.0)
MCV 97.3 H fL
(80.0-94.0)
MCH 31.2 H pg
(27.0-31.0)
MCHC 32.1 L g/dL
(33.0-37.0)
Absolute Neuts (auto) 6.9 H 10^3/uL
(1.4-6.5)
Absolute Lymphs (auto) 0.5 L 10^3/uL
(1.2-3.4)
Neutrophils % 85.0 H %
(42.2-75.2)
Lymphocytes % 6.4 L %
(20.5-51.1)
BUN 24 H mg/dl
(9-20)
Glucose 280 H mg/dl
(70-99)
Iron 34 L ug/dl
(49-181)
% Saturation 8 L %
(20-50)
Ferritin 9.9 L ng/ml
(17.9-464.0)
Vitamin B12 218 L pg/ml
(239-931)
09/27/25 12:39
09/27/25 12:39
Vital Signs
Initial and Last Documented VS:
Initial Vital Signs
Temp Pulse Resp BP Pulse Ox
98.2 F 99 16 105/76 95
09/27/25 11:59 09/27/25 11:59 09/27/25 11:59 09/27/25 11:59 09/27/25 11:59
Last Documented Vital Signs
Temp Pulse Resp BP Pulse Ox
98.2 F 88 20 116/66 93
09/27/25 11:59 09/27/25 14:29 09/27/25 14:29 09/27/25 14:29 09/27/25 14:29
<Kaiser Peña PA-C - Last Filed: 09/27/25 16:36>
MDM/Problems Addressed
MDM/Problems Addressed:
Ultimately patient's presentation with intractable vomiting is likely a self-limited viral versus foodborne illness however the persistent vomiting is concerning and given his advanced age will require additional IV fluids in hospital. Of note he
has had a frequently and hemoglobin drop in the past 6 weeks and is reporting exertional dyspnea. He has heme positive stool and recently initiated anticoagulants thus we will recommend we admit him to the hospital for further management. Given
that he has nonmelanotic stool we will give twice daily PPI as opposed to continuous infusion
<Kaiser Peña PA-C - Last Filed: 09/27/25 16:36>
*Pulse Oximetry
SaO2: 95
Oxygen Mode of Delivery: Room air
Patient hypoxic: no
*Critical Care Note
Total Time (30-74mins, 75-104mins- exclusive of procedures): Not Applicable
ED Attending Note
<Kaiser Peña PA-C - Last Filed: 09/27/25 16:36>
-
Portions of this chart may have been created with voice recognition software.� Occasional wrong word or��sound alike� substitutions may have occurred due to the inherent limitations of voice recognition software.
<Herbert Jain DO - Last Filed: 09/27/25 14:42>
ED Attending Note
Patient seen and examined by attending physician: Yes
I performed the substantive portion of visit, reviewed & personally made and approve the management plan that is documented in note by myself or IRENA.: Yes
ED Attending Note:
I agree with Elgin's note
Patient presents emergency room for nausea, vomiting, shortness of breath with exertion and generalized weakness. Patient recently started on Eliquis.
General: Awake, Alert, Oriented X3. Appears stated age, nontoxic
Vitals: unremarkable
Head: Atraumatic
Eyes: Pupils equal, EOMI
Throat: Airway intact, no exudates, dry mucosa
Neck: Trachea midline
Lungs: Clear and equal b/l
Heart: Regular rate, no murmurs
Abd: Soft, Nontender, No pulsatile mass
Patient continues to be nauseous despite treatment. Also noted to have a 3 g drop in hemoglobin and a short period of time with heme positive stools and recent initiation of oral anticoagulation. Patient require hospitalization for monitoring of
his hemoglobin, maintenance of hydration through IV fluids and treatment of nausea.
Discharge Plan
Departure
Patient Disposition: Admit
Date of Disposition: 09/27/25
Time of Disposition: 14:28
Admit to: Med/Surg
Presentation/result/management discussed w/ accepting MD/DO: Hospitalist
Discharge Problem:
Symptomatic anemia, Heme positive stool, Intractable vomiting
Interventions
Interventions:
*Risk Screen - Suicide Last Done: 09/27/25 11:59
*General Assessment Last Done: 09/27/25 14:26
*Neglect/Abuse Screening Last Done: 09/27/25 11:59
*ED COVID-19 Vaccine History Last Done: 09/27/25 14:26
*ED Influenza Vaccine History Last Done: 09/27/25 14:26
[facility] Fall Risk Assessment Tool Last Done: 09/27/25 14:26
TH-Kbhahq-Kabgtxowpt Assessment Last Done: 09/27/25 14:26
[2025-09-27] MEDS: ZOFRAN 4 MG IV (12:44)
[2025-09-27 12:45] LABS: Hematocrit 28.7 % (39.0-52.0); Hemoglobin 9.2 g/dL (13.0-18.0); Mean Corp Hgb Conc. 32.1 g/dL (33.0-37.0); Mean Corpuscular Volume 97.3 fL (80.0-94.0); Nucleated Red Blood Cells % 0 % (-); Platelet Count 151 10^3/uL (130-400); Red Cell Dist. Width 13.8 % (11.5-14.5)
[2025-09-27] MEDS: NSS 1000 IV (12:47)
[2025-09-27 12:59] LABS: ALT (SGPT) 23 U/L (0-50); AST (SGOT) 28 U/L (17-59); Albumin 4.3 g/dl (3.5-5.0); Alkaline Phosphatase 71 U/L (38-126); Blood Urea Nitrogen 24 mg/dl (9-20); Calcium 9.0 mg/dl (8.4-10.2); Carbon Dioxide 22 mmol/L (22-30); Chloride 107 mmol/L (98-107); Glucose 280 mg/dl (70-99); Lipase 101 U/L (23-300); Potassium 4.4 mmol/L (3.5-5.1); Sodium 138 mmol/L (135-145); Total Protein 7.3 g/dl (6.3-8.2); eGFR > 60.00
[2025-09-27 14:12] LABS: Iron 34 ug/dl (49-181)
[2025-09-27] MEDS: PROTONIX IV 40 MG IV ×2 (14:16→20:39)
[2025-09-27 14:21] LABS: Total Iron Binding Capacity 396 ug/dl (261-462)
[2025-09-27 14:47] LABS: Ferritin 9.9 ng/ml (17.9-464.0)
--- NOTE | 2025-09-27 15:02 | HPS.HSE ---
Addendum entered and electronically signed by Miah Kaplan MD 09/27/25 17:35:
This is an addendum to the H&P written by Rebeca Downs on 09/27/2025. �Patient seen and examined independently with CERTIFIED LOW VISION THERAPIST.
85-year-old male past medical history of CHF, atrial fibrillation on Eliquis started this week, bradycardia status post pacemaker, moderate aortic stenosis, hyperlipidemia, diabetes, BPH, CKD 2 presenting with intractable vomiting starting today.
�Has been having exertional dyspnea, dizziness ongoing for several months. �He is not sure about blood in his stool because he does not check. �Denies abdominal pain.
He did have�burning with urination today.
Vital signs unremarkable. Labs show hemoglobin 9.2 from 12. in July. �Iron level 34. �Percent saturation 8. �Ferritin 9.9.
Patient with intractable vomiting unclear etiology, does not seem to be secondary to gastroenteritis. �Check CT abdomen pelvis. �Zofran. �Patient also with symptomatic macrocytic anemia likely mixed from iron deficiency, rule out B12 deficiency.
�Suspect occult bleeding from GI source. �Hold Eliquis. �Protonix 40 twice daily. �Iron transfusion. �GI consulted.
Check chest x-ray, pacemaker to�be interrogated due to ongoing dyspnea.
Check urinalysis due to dysuria.
Original Note:
Family Physician
-
Family Physician: Yong Gifford
Chief Complaint
-
intractable vomiting
History of Present Illness
Patient is a 85-year-old male with past medical history significant for CHF, paroxysmal atrial fibrillation, essential hypertension, hyperlipidemia, type II diabetes mellitus, CKD stage II, anemia of chronic disease, asthma and obstructive sleep
apnea who presented to [facility] for evaluation of intractable vomiting that started this morning. Patient reports that following breakfast this morning he began vomiting and continued to dry heave until after arrival in the ED. He reports that he has
been having recent workup and changes out patient by cardiology for worsening exertional dyspnea. Patient denies any recent sick contact, fever, chills, cough, chest pain, palpitations, nausea, constipation or diarrhea. Patient denies any stomach
pain or dark stools.
Medical History
Past Medical History
Past Medical History: Reports Other
Additional Past Medical History:
symptomatic bradycardia s/p pacemaker
paroxysmal atrial fibrillation
CHF
essential hypertension
hyperlipidemia
type II diabetes mellitus
CKD stage II
anemia of chronic disease
asthma
obstructive sleep apnea
chronic back pain
chronic right foot drop
BPH
nephrolithiasis
valvular heart disease: moderate aortic stenosis. mild mitral stenosis
Past Surgical History: Reports Other
Additional Past Surgical History:
Left Hip Replacement
Bilateral Knee Replacements
Appendectomy
pacemaker
Social History
Tobacco: Non-smoker
Alcohol: None (Very Rare)
Personal:
Living: With Family
Employment: Employed
Family History
Family History: Not pertinent
Allergies / Home Medications
Allergies reflects when Allergies were last updated in [employer].
Home Medications with original date entered in [employer]
Allergy/Medication List:
Allergies
Allergy/AdvReac Type Severity Reaction Status Date / Time
No Known Allergies Allergy Verified 09/27/25 11:59
Home Medications
tamsulosin 0.4 mg capsule 0.4 mg PO DAILY Urinary issue 11/24/18
fluoxetine 20 mg capsule 20 mg PO DAILY depression/anxiety 06/13/21
vit C 250 mg-vit E 90 mg-zinc 40 mg-copper 1 [id number] capsule (PreserVision AREDS-2) 2 ea PO DAILY Supplement 06/13/21
oxycodone-acetaminophen 5 mg-325 mg tablet 0.5 tab PO DAILY pain #5 tabs 10/13/24
apixaban 5 mg tablet (Eliquis) 5 mg PO BID 09/27/25
aspirin 81 mg tablet 81 mg PO DAILY 09/27/25
furosemide 20 mg tablet 20 mg PO DAILY 09/27/25
rosuvastatin 10 mg tablet 10 mg PO DAILY 09/27/25
sennosides 8.6 mg tablet (senna) 8.6 mg PO DAILY 09/27/25
Review of Systems
-
History Source: Patient
Constitutional: Denies Fever or Chills
EENT: Denies Sore Throat
Respiratory: Reports Trouble Breathing (exertional dyspnea ); Denies Cough or Hemoptysis
Cardiac: Denies Chest Pain, Diaphoresis, Palpitations or Syncope
Abdomen/GI: Reports Vomiting; Denies Abdominal Pain, Nausea, Diarrhea or Constipated
: Denies Dysuria, Frequency or Urgency
Musculoskeletal: Denies Joint Pain
Skin: Denies Rash
Neurological: Denies Dizzy, Headache, Weakness or Numbness
Physical Exam
Vital Signs
Vital Signs
Temp Pulse Resp BP Pulse Ox
98.2 F 88 20 116/66 93
09/27/25 11:59 09/27/25 14:29 09/27/25 14:29 09/27/25 14:29 09/27/25 14:29
Physical Exam
General: Well Developed, Well Nourished, No Apparent Distress, Comfortable, Conversant and Morbidly Obese
HEENT: NormoCephalic, Moist mucous membranes, PERRLA, Nose Appears Normal and Ears Appear Normal
Respiratory: Clear and Non Labored Respirations; No Wheezes, Rales or Rhonchi
Cardiac: Regular Rhythm and Peripheral Edema (trace); No Murmur, Rub or Gallop
GI: Soft, Non Tender, Non Distended and Normal Bowel Sounds
Musculoskeletal: No Clubbing and No Cyanosis
Skin: Warm
Neuro: Awake and AO x 3
Psych: Calm
Laboratory Results
-
09/27/25 12:39
09/27/25 12:39
Laboratory Results
Total Bilirubin 1.1 mg/dl (0.2-1.3) 09/27/25 12:39
AST 28 U/L (17-59) 09/27/25 12:39
ALT 23 U/L (0-50) 09/27/25 12:39
Alkaline Phosphatase 71 U/L (38-126) 09/27/25 12:39
Lipase 101 U/L (23-300) 09/27/25 12:39
Data Reviewed
-
Medical Tests (Nuc Med, Echo, EKG etc): Report Reviewed by me (EKG: Atrial-sensed ventricular-paced rhythm)
Lab Data: Labs Reviewed by me (hgb 9.2, hct 28.7, neut 85.0)
Impression/Plan
-
IMPRESSION/PLAN:
#intractable vomiting 2/2 infectious process vs. GI bleed vs. bowel blockage
#anemia of chronic disease
intractable vomiting this morning, denies hematemesis and/or melena
hgb 9.2, hct 28.7 (3g drop in 6 weeks)
heme positive stool per ED staff on report
EKG: Atrial-sensed ventricular-paced rhythm
- Admit to telemetry
- monitor H/H
- Consult GI
- NPO with sips
- iron studies, B12 and folate pending
- CT abd/pel pending
- CXR pending
#CHF
- daily weights
- I & Os
- continue furosemide
#paroxysmal atrial fibrillation
- hold Eliquis in setting of anemia
#hyperlipidemia
- continue rosuvastatin
#type II diabetes mellitus
controlled with diet
- monitor BMP
#CKD stage II
stable
- monitor BMP
#BPH
- continue tamsulosin
#symptomatic bradycardia
s/p pacemaker
#essential hypertension
Code status: DNR
DVT prophylaxis: SCDs
[2025-09-27 16:31] LABS: Folate 16.1 ng/ml (2.76-20); Vitamin B12 218 pg/ml (239-931)
--- NOTE | 2025-09-27 17:03 | CON.GI ---
Consultation
-
Date/Time Consultation Performed: 09/27/25
Performing Provider: Ludwin Boyer MD
Reason for Consultation: anemia, vomiting
Medical History
Chief Complaint / HPI
Chief Complaint: vomiting, GONZALEZ
History of Present Illness:
The patient is an 85-year-old male with past medical history as noted who presents with nausea vomiting and weakness. He has been having shortness of breath for the past several months, and has had cardiac and pulmonary evaluation, which so far has
been mostly unremarkable, with moderate valvular disease. He is scheduled for stress test at some point. Today he had an episode of nausea after eating with vomiting. He denies any hematemesis or coffee grounds. Denied any associated abdominal
pain. This is not when he was exerting himself and did not have any shortness of breath at this time. Since coming to emergency room he received IV fluids and feeling much better with no further nausea. He denies any change in bowel habits,
melena or hematochezia though does not always look at his stools. He was recently started within the last few days on Eliquis for an episode of A-fib noted on his pacemaker. His labs previously showed a hemoglobin of around 12 in May, though
MCV was 106. Upon presentation to emergency room he was found to have a hemoglobin of 9.2, now MCV of 97, with iron deficient parameters. His last colonoscopy was with Dr. Angel in 2016 that showed diverticulosis though otherwise was unremarkable.
He recently had left-sided abdominal pain, in the emergency room had CAT scan that showed uncomplicated diverticulitis, completed course of antibiotics.
Past Medical History
Past Medical History: Other (Hypertension, high cholesterol, sick sinus syndrome status post pacemaker, kidney stones, coronary artery disease, moderate aortic stenosis, mild aortic regurgitation, mild mitral stenosis, A-fib)
Past Surgical History: Other (Left Hip Replacement Bilateral Knee Replacements Appendectomy pacemaker)
Social History
Tobacco: Non-Smoker
Alcohol: Occasional
Family History
Family History: Reviewed & Not Pertinent
Allergies / Home Medications
Allergy/AdvReac Type Severity Reaction Status Date / Time
No Known Allergies Allergy Verified 09/27/25 11:59
�Medication �Instructions �Recorded
tamsulosin 0.4 mg capsule 0.4 mg PO DAILY Urinary issue 11/24/18
fluoxetine 20 mg capsule 20 mg PO DAILY depression/anxiety 06/13/21
vit C 250 mg-vit E 90 mg-zinc 40 2 ea PO DAILY Supplement 06/13/21
mg-copper 1 [id number]
capsule (PreserVision AREDS-2)
oxycodone-acetaminophen 5 mg-325 0.5 tab PO DAILY pain #5 tabs 10/13/24
mg tablet
apixaban 5 mg tablet (Eliquis) 5 mg PO BID 09/27/25
aspirin 81 mg tablet 81 mg PO DAILY 09/27/25
furosemide 20 mg tablet 20 mg PO DAILY 09/27/25
rosuvastatin 10 mg tablet 10 mg PO DAILY 09/27/25
sennosides 8.6 mg tablet (senna) 8.6 mg PO DAILY 09/27/25
Review of Systems
-
All other systems: A 12 pt ROS was Negative except as stated above in HPI
Vital Signs
Temp Pulse Resp BP Pulse Ox
98.2 F 88 20 116/66 93
09/27/25 11:59 09/27/25 14:29 09/27/25 14:29 09/27/25 14:29 09/27/25 14:29
Physical Exam
Exam
General: NAD
HEENT: MMM, anicteric, no lymphadenopathy
Heart: Regular, 2/6 systolicmurmurs
Lungs: CTA bilaterally
Abdomen: normal bowel sounds, soft, no tenderness, no rebound or guarding, no masses, bruits or ascites
Extremeties: trace edema
Skin: no rashes
Results
WBC 8.1 10^3/uL (4.8-10.8) 09/27/25 12:39
Hgb 9.2 g/dL (13.0-18.0) L 09/27/25 12:39
Hct 28.7 % (39.0-52.0) L 09/27/25 12:39
MCV 97.3 fL (80.0-94.0) H 09/27/25 12:39
Plt Count 151 10^3/uL (130-400) 09/27/25 12:39
Absolute Neuts (auto) 6.9 10^3/uL (1.4-6.5) H 09/27/25 12:39
Sodium 138 mmol/L (135-145) 09/27/25 12:39
Potassium 4.4 mmol/L (3.5-5.1) 09/27/25 12:39
Chloride 107 mmol/L (98-107) 09/27/25 12:39
Carbon Dioxide 22 mmol/L (22-30) 09/27/25 12:39
BUN 24 mg/dl (9-20) H 09/27/25 12:39
Creatinine 1.1 mg/dL (0.7-1.3) 09/27/25 12:39
Calcium 9.0 mg/dl (8.4-10.2) 09/27/25 12:39
Total Bilirubin 1.1 mg/dl (0.2-1.3) 09/27/25 12:39
AST 28 U/L (17-59) 09/27/25 12:39
ALT 23 U/L (0-50) 09/27/25 12:39
Alkaline Phosphatase 71 U/L (38-126) 09/27/25 12:39
Lipase 101 U/L (23-300) 09/27/25 12:39
Diagnostic Image Results:
Prior GI Procedures:
EGD:
Colonoscopy:
2016:Findings:
A few small and large-mouthed diverticula were found in the sigmoid
colon.
The exam was otherwise without abnormality.
Impression: - Diverticulosis in the sigmoid colon.
- The examination was otherwise normal.
Recommendation: - Discharge patient to home (ambulatory).
- Repeat colonoscopy in 5 years for surveillance.
Assessment / Plan
-
1. Nausea/vomiting: Unclear etiology, with really no other symptoms, now resolved after IV fluids, with benign exam. LFTs and lipase unremarkable, recent CT scan from July without other significant pathology. Wonder if this could have been
anginal equivalent given his dyspnea on exertion symptoms that have been going on for several months. At this point would continue supportive care, clear liquid diet, PPI and observation for now. If further episodes of vomiting may need to
consider repeat imaging though we will hold on this for now. Would likely benefit from cardiac evaluation here, especially given his main symptoms of dyspnea on exertion, possible underlying ischemic evaluation.
2. Anemia: With about a 3 g drop over the past few months, now with iron deficient parameters, previously macrocytic, though no gross bleeding or new GI symptoms. He states that he has been intermittently iron deficient over the past couple of
years, and etiology such as angiectasia are more likely. Underlying malignancy is not completely excluded though does seem less likely. He has no signs of gross bleeding now. He was recently started on Eliquis, last dose was this morning. At
this point would continue supportive care, would likely benefit from IV iron. Will continue PPI for now, clear liquids. Pending clinical course may plan EGD and colonoscopy on Wednesday.
-
-
Thank you for consultation and allowing me to participate in the patient's care. Please call the loss prevention coordinator GI physician during the after hours with any questions or concerns.
[2025-09-27 18:33] LABS: Urine Character Clear (Clear)
[2025-09-27 18:46] LABS: Urine Squamous Cell 0-2 /LPF (Few); Urine Urothelial Cell 0-2 /LPF (FEW)
[2025-09-27 18:47] LABS: Urine Red Blood Cell 30-40 /HPF (0-2); Urine White Cell 0-2 /HPF (0-5)
[2025-09-27] MEDS: NSS (PRESERVATIVE FREE) 10 ML IV (20:39)
[2025-09-27 21:02] LABS: Hematocrit 27.5 % (39.0-52.0); Hemoglobin 9.0 g/dL (13.0-18.0)
[2025-09-28] VITALS (7 sets, daily range): BP systolic 91–99; BP diastolic 50–66; PULSE 79–106; BMI 35.6
[2025-09-28 03:08] LABS: Hematocrit 24.7 % (39.0-52.0); Hemoglobin 7.9 g/dL (13.0-18.0)
[2025-09-28 08:02] LABS: Hematocrit 24.6 % (39.0-52.0); Hemoglobin 7.8 g/dL (13.0-18.0); Mean Corp Hgb Conc. 31.7 g/dL (33.0-37.0); Mean Corpuscular Volume 97.2 fL (80.0-94.0); Platelet Count 151 10^3/uL (130-400); Red Cell Dist. Width 14.1 % (11.5-14.5)
[2025-09-28 08:27] LABS: Blood Urea Nitrogen 18 mg/dl (9-20); Calcium 8.7 mg/dl (8.4-10.2); Carbon Dioxide 25 mmol/L (22-30); Chloride 106 mmol/L (98-107); Estimated Creatinine Clearance 48 ml/min; Glucose 125 mg/dl (70-99); Potassium 4.2 mmol/L (3.5-5.1); Sodium 136 mmol/L (135-145); eGFR 58.53
[2025-09-28] MEDS: PROZAC 20 MG PO (08:42)
[2025-09-28] MEDS: FLOMAX 0.4 MG PO (08:42)
[2025-09-28] MEDS: CRESTOR 10 MG PO (08:42)
[2025-09-28] MEDS: PROTONIX IV 40 MG IV ×2 (08:42→20:23)
[2025-09-28] MEDS: NSS (PRESERVATIVE FREE) 10 ML IV ×2 (08:42→20:23)
[2025-09-28] MEDS: LASIX 20 MG PO (08:42)
[2025-09-28] MEDS: LOW STRENGTH ASPIRIN 81 MG PO (08:43)
[2025-09-28] MEDS: PERCOCET 5/325 0.5 TABLET PO (08:43)
[2025-09-28] MEDS: SENOKOT 8.6 MG PO (08:43)
[2025-09-28] MEDS: OCUVITE SOFTGEL 2 CAP PO (08:43)
--- NOTE | 2025-09-28 09:38 | CON.CAR ---
Addendum entered and electronically signed by Omar Matias MD 09/28/25 14:11:
I saw and examined the patient.
The FINANCIAL ASSOCIATE or PA's note was reviewed and I agree with the note.
Comment: General: Well developed, well nourished in NAD.
Neck: Supple, no JVD, HJR, carotids +2 B/L, no bruits bilaterally.
Heart: Non displaced PMI, RRR, 2/6 basal systolic murmur, No S3, S4, no rubs.
Lungs: Clear to auscultation bilaterally, no wheeze, rhonchi, rubs bilaterally,
normal expiratory phase.
Abdomen: Normal bowel sounds, soft, non-tender, non-distended.
Extremities: No clubbing, cyanosis or edema bilaterally.
Neuro: Grossly nonfocal, awake, alert and oriented x3.
Akil has a history of chronic diastolic CHF, moderate aortic stenosis, atrial fibrillation on Eliquis, hypertension, diabetes, hyperlipidemia, CKD stage II, anemia of chronic disease, asthma, sleep apnea. He presented with intractable vomiting.
He also has had a 6-month history of worsening dyspnea on exertion with recent cardiac evaluation resulting in initiation of Lasix with no improvement in symptoms. He also has had some chest tightness for the past 6 months. He is noted to have
episodes of A-fib on pacemaker check in September 21, 2025 and started on Eliquis 2 days ago.
He now has heme positive stool and Eliquis is on hold
Stable cardiology status for GI procedures without further testing.
He is for eventual outpatient ischemic evaluation.
Original Note:
Consultation
Consultation Request
Date/Time Consultation Requested: 09/28/2025829
Date/Time Consultation Performed: 09/28/2025929
Requesting Provider: Dr Donovan
Performing Provider: NATANAEL Warren for Dr Matias
Reason for Consultation: GONZALEZ, preop
Medical History
-
Chief Complaint: nausea and vomitting
History of Present Illness:
Akil is a 85-year-old male with past medical history significant for HFpEF, aortic stenosis (moderate), paroxysmal atrial fibrillation, essential hypertension, hyperlipidemia, type II diabetes mellitus, CKD stage II, anemia of chronic disease,
asthma and obstructive sleep apnea who presented to [facility] ED for evaluation of intractable vomiting that started 09/27/2025. Patient reports that following breakfast he began vomiting and continued to dry heave until after arrival in the ED. In
addition, he has a 6 month history of worsening dyspnea on exertion and has been undergoing outpatient cardiac evaluation with recent initiation of furosemide with no improvement in symptoms. Patient admits today that he has been having chest
tightness with some episodes of shortness of breath for past 6 months. Also, pacemaker interrogation at recent office visit 09/21/2025 notable for 2 episodes of atrial fibrillation including a 5-hour episode on 08/18/2025. Overall A-fib burden was
0.6%. He was started on Eliquis and tells me first dose was 2 days ago.
Hospital evaluation:
-Hemoglobin on admission initially 9.2, has trended down to 7.8. Of note hemoglobin 12.2 08/10/2025.
-Heme positive stool
-proBNP 2370
-Troponin 0.045
-BUNs/creatinine 18/1.2, NA 136, K4.2
-CXR: no evidence for pulmonary edema, no pleural effusions bilaterally, poss atelectasis
-EKG: AV paced
Recent cardiac evaluation:
-Echo 07/25/2025 with normal LV/RV size and function, LVEF 61%, stage I diastolic dysfunction, moderate aortic stenosis, peak/mean gradients 50 and 32 mmHg respectively, LESLIE 1 cm, mild AI, mild mitral stenosis, Mild MR, mild TR. No change compared
to echo 02/14/2024.
- A PET CT scan recently ordered for ischemic evaluation but has not been completed yet
-proBNP in outpatient setting has ranged 1333�1478 and prompted initiation of low-dose diuretics Lasix 20 mg daily then uptitration to 40 mg daily but no improvement in symptoms.
In addition, patient recently evaluated weighted by pulmonary and had PFTs with no airflow obstruction, mild restriction, 6-minute walk test with no desaturation. Home sleep study has been advised
Past medical history:
Aortic stenosis, moderate
Permanent pacemaker 01/2024
Symptomatic bradycardia/sinus pauses
Paroxysmal atrial fibrillation, not detected on pacemaker interrogation 08/18/2025, 5-hour episode
Chronic back pain
Hyperlipidemia
Anemia
Heart failure preserved EF
Nephrolithiasis
CAD (PET CT scan 11/28/2024 with no ischemia, fixed inferior apical defect likely soft tissue attenuation, coronary flow reserve reduced, high density along coronary arteries which could represent combination of calcified plaque and stents)
Past Medical History
Past Medical History: HTN, Hypercholesterolemia, Valvular Disease (Mild to moderate aortic stenosis December 2022, mild mitral stenosis December 2022) and Other (History of nephrolithiasis, obesity with probable sleep apnea, anemia)
Past Surgical History: Orthopedic (Left total hip replacement 2007, laminectomy L2, right total knee replacement, left hip replacement, left total knee replacement)
Social History
Tobacco: Non-Smoker
Alcohol: Occasional
Drug: None
Personal:
Living: With Family
Employment: Employed
Family History
Family History: Other (Mother of breast cancer. There is no family history of premature coronary artery disease)
Allergies / Home Medications
Allergy/AdvReac Type Severity Reaction Status Date / Time
No Known Allergies Allergy Verified 09/27/25 11:59
�Medication �Instructions �Recorded �Confirmed �Type
tamsulosin 0.4 mg capsule 0.4 mg PO DAILY Urinary issue 11/24/18 09/27/25 History
fluoxetine 20 mg capsule 20 mg PO DAILY depression/anxiety 06/13/21 09/27/25 History
vit C 250 mg-vit E 90 mg-zinc 40 2 ea PO DAILY Supplement 06/13/21 09/27/25 History
mg-copper 1 [id number]
capsule (PreserVision AREDS-2)
oxycodone-acetaminophen 5 mg-325 0.5 tab PO DAILY pain #5 tabs 10/13/24 09/27/25 Rx
mg tablet
apixaban 5 mg tablet (Eliquis) 5 mg PO BID 09/27/25 09/27/25 History
aspirin 81 mg tablet 81 mg PO DAILY 09/27/25 09/27/25 History
furosemide 20 mg tablet 20 mg PO DAILY 09/27/25 09/27/25 History
rosuvastatin 10 mg tablet 10 mg PO DAILY 09/27/25 09/27/25 History
sennosides 8.6 mg tablet (senna) 8.6 mg PO DAILY 09/27/25 09/27/25 History
Physical Exam
Vital Signs
Temp Pulse Resp BP Pulse Ox
98.2 F 83 18 95/50 100
09/28/25 07:17 09/28/25 07:17 09/28/25 07:17 09/28/25 07:17 09/28/25 07:17
Lab Results
09/28/25 06:58
09/28/25 06:58
Impression / Plan
-
PCP: Dr. Gifford
Hoop Flaring Machine Operator: Dr. Johnson
Impression:
Dyspnea on exertion
Acute anemia
Heme positive stool
Elevated troponin
Paroxysmal atrial fibrillation
Sick sinus syndrome
Dual-chamber Medtronic pacemaker
Moderate aortic stenosis
Mild mitral stenosis
RBBB
Hypertension
Hyperlipidemia
Obesity w/ probable sleep apnea
h/o nephrolithiasis
Anemia
A1c 6.9%, consistent w/ DM
Lexiscan stress test 09/2021: Fixed basal inferolateral and mid inferolateral defect with no evidence of ischemia, ejection fraction 65%
PET CT scan 11/28/2024 with no ischemia, fixed inferior apical defect likely soft tissue attenuation, coronary flow reserve reduced, high density along coronary arteries which could represent combination of calcified plaque and stents
Echo 08/2021: E 60 to 65%, mild mitral stenosis with mean gradient of 5 mmHg, moderate aortic stenosis with mean gradient of 21 mmHg
Echo 01/06/2023: EF 65%, mild concentric LVH, mild mitral stenosis with mean pressure gradient of 4 mmHg, mild to moderate aortic stenosis with mean gradient of 23 mmHg, aortic valve area 1.3 cm�, mildly dilated aortic root at 3.9
Echo 02/14/2024: EF 55-60%, mild cLVH, mild MS w/ mean gradient 4mmHg, mild MR, moderate w/ peak/mean gradients 45/27 mmHg, LESLIE 0.9 cm2, trace AI
Echo 07/25/2025 with normal LV/RV size and function, LVEF 61%, stage I diastolic dysfunction, moderate aortic stenosis, peak/mean gradients 50 and 32 mmHg respectively, LESLIE 1 cm, mild AI, mild mitral stenosis, Mild MR, mild TR. No change compared
to echo 02/14/2024.
Plan:
-Patient presents with nausea, vomiting, weakness, heme positive stool and found to be newly anemic with hemoglobin 7.8. GI planning for endoscopic evaluation on Monday 10/01. Hold Eliquis which was recently started for paroxysmal atrial
fibrillation detected on pacemaker interrogation. Patient had one 5-hour episode of A-fib on 08/18/2025 with 0.6% A-fib burden
-Patient also with 6-month history of worsening dyspnea on exertion.
-Recent cardiac workup notable for stable echo 07/25/2025 with preserved LV function, moderate aortic stenosis, mild AI, mild MS, mild MR
-Has been treated with outpatient low-dose diuretics without improvement in symptoms
-CXR 09/27 without evidence pulm edema
-given stable echo, outpatient ischemic evaluation with PET/CT was scheduled to eval for ischemic cause of GONZALEZ
-pt has seen pulmonary in outpatient setting for eval of GONZALEZ, PFTs without significant abnl and 6 min walk without desat. Getting outpt sleep study
-pt now reporting chest tightness assoc with GONZALEZ, no current symptoms. We are trending troponins, 0.045 --pending. Inpatient ischemic eval could be considered however may be higher risk candidate for antiplatelet agents (if stent indicated) given
concern for GI bleed
-AV paced on EKG
-Farxiga recently recommended by Dr Johnson, outpt lithographic photographer, but pt not able to start due to cost concerns.
-renal fxn stable
Data Reviewed
-
EKG: Tracing Personally Visualized and interpreted
Medical Tests (Nuc Med, Echo etc): Image Personally Visualized and interpreted
Labs: Labs Reviewed by me
[2025-09-28 10:08] LABS: Troponin I 0.045 ng/ml
[2025-09-28] MEDS: VITAMIN B-12 100 MCG PO (10:42)
--- NOTE | 2025-09-28 12:04 | W.PN.GI.CBS2 ---
Addendum entered and electronically signed by Leena Silver DO 09/28/25 13:08:
The patient was seen and examined by me independently in collaboration with the nurse practitioner.
Past medical history/social history/medications/allergies/family history reviewed.
Lab data and imaging data reviewed.
Akil Bhatti is a 85 y.o. male w/ pmhx HTN, HLD, SSS s/p PPM nephrolithiasis, CAD, moderate , mild AI, mild MS, afib on eliquis admitted with nausea, vomiting and weakness found to be anemic with brown, heme positive stool.
Hgb 12.2 --> 9 --> 7.9 --> 7.8, MCV 97 with iron deficient parameters.
Last colonoscopy in 2015 with diverticulosis, otherwise, normal. Recent presentation to ER on 08/10/25 for uncomplicated diverticulitis
Last dose eliquis 09/27 AM
I suspect his presenting symptoms are multifactorial. Cardiac eval pending. He would like to move forward with endoscopic evaluation, tentative plans for Wednesday to allow for eliquis washout and optimization for cardio/pulm status
Miralax/senna
Low residue diet
Trend hgb, hold on transfusion
Give IV Iron
IV PPI
Original Note:
Today's Communication / Plan
-
Etiology of symptoms with shortness of breath related to cardio/pulm issue vs multi factorial with anemia vs other
hbg down to 7.8 today
cont medical optimization
for cards eval
pt would be agreeable for EGD/colon work up as soon as Wednesday if medically stable
ok for low residue diet as no stool overnight and nausea improved as tolerating clears
cont senna and add Miralax prior to procedure
Last Eliquis 09/27 AM
trend hbg no transfusion needed yet
cont IV iron and PPI
Assessment / Plan
-
Pt is an 85yo with hx Hypertension, high cholesterol, sick sinus syndrome status post pacemaker, kidney stones, coronary artery disease, moderate aortic stenosis, mild aortic regurgitation, mild mitral stenosis, A-fib with newly started Eliquis
with onset of nausea, vomiting and weakness with shortness of breath over a few months with valvular disease. He is noted with drop in hbg over last few months with EDYTA. Pt also noted with increased troponin.
-exertional dyspnea
-EDYTA with recent drop in hgb and heme + stools
-nausea/vomiting- improved after admission
-afib on new Eliquis
-increased troponin
other med problems:
Hypertension, high cholesterol, sick sinus syndrome status post pacemaker, kidney stones, coronary artery disease, moderate aortic stenosis, mild aortic regurgitation, mild mitral stenosis
PLAN:
Etiology of symptoms with shortness of breath related to cardio/pulm issue vs multi factorial with anemia vs other
hbg down to 7.8 today
cont medical optimization
for cards eval
pt would be agreeable for EGD/colon work up as soon as Wednesday if medically stable
ok for low residue diet as no stool overnight and nausea improved as tolerating clears
cont senna and add Miralax prior to procedure
Last Eliquis 09/27 AM
trend hbg no transfusion needed yet
cont IV iron and PPI
Subjective
Subjective
Date of Service: September 28, 2025
No stools on clear diet
Objective
Data Reviewed
Laboratory Data:
Laboratory Results
09/28/25 06:58
09/28/25 06:58
Laboratory Results
Total Bilirubin 1.1 mg/dl (0.2-1.3) 09/27/25 12:39
AST 28 U/L (17-59) 09/27/25 12:39
ALT 23 U/L (0-50) 09/27/25 12:39
Alkaline Phosphatase 71 U/L (38-126) 09/27/25 12:39
Lipase 101 U/L (23-300) 09/27/25 12:39
Vital Signs and I&O:
Vital Signs
Temp Pulse Resp BP Pulse Ox
98.3 F 81 18 99/57 94
09/28/25 11:48 09/28/25 11:48 09/28/25 11:48 09/28/25 11:48 09/28/25 11:48
I&O
09/27/25 09/28/25 09/29/25
06:59 06:59 06:59
Output Total 775 / 775
Balance -775 / -775
Physical Exam
Physical Exam
HEENT: Anicteric and Moist mucous membranes
Cardiology: Normal Sinus Rhythm
Pulmonary: Other (decreased bases )
GI: Soft, Non Distended and Non Tender
Neuro: Non Focal
[2025-09-28] MEDS: MIRALAX 17 GRAMS PO (14:03)
[2025-09-28] MEDS: FERRLECIT 110 MG IV (14:03)
--- NOTE | 2025-09-28 14:05 | W.PN.HOSP.TC ---
Today's Communication/Plan
-
see outlined plan below
Assessment / Plan
Assessment / Plan
Assessment:
Acute anemia with heme positive stools, on top of anemia of chronic disease
Acute GI bleed, exacerbated by Eliquis
- anemia labs indicate iron deficiency (IV iron ordered) and B12 deficiency (replacement ordered)
- patient agreeable to EGD/Colon (earliest Wednesday per GI); cards pre-op eval appreciated
- continue PPI
- diet: LRD
- bowel regimen
- GI following
Chronic dyspnea on exertion
Nonischemic myocardial injury, possibly demand related to anemia
- Echo 07/2025: stable with preserved EF, moderate , mild AI, mild MS, mild MR
- no improvement with outpatient diuretics; no acute evidence of CHF
- OP Pulm w/u (PFTs, 6MWT) unremarkable
- inpatient ischemic eval (Cath) high risk given concern for GI bleed
- d/w DCA cards; plan is for OP stress test
- Patient can proceed with GI procedures without additional testing
- trend trops to peak
Atelectasis
- IS ordered
Paroxysmal atrial fibrillation
Sick sinus syndrome
Dual-chamber Medtronic pacemaker
- holding Eliquis; continue ASA
- continue oral 20mg daily Lasix
Moderate aortic stenosis
Mild mitral stenosis
RBBB
Essential hypertension
Hyperlipidemia - statin
Obesity w/ probable sleep apnea
h/o nephrolithiasis
Type 2 DM
- diet controlled
- SSI
- A1c: pending
CKD stage 2
BPH - on Flomax
DVT ppx: SCDs
Code: DNR/DNI
Anticipated Discharge: > 48 hours
Subjective/Interval History
-
Date of Service: September 28, 2025
Admitted with anemia (iron, B12 deficiency with plans for EGD Wednesday)
reports GONZALEZ x 6 months, was being evaluated by Cardiology with plan for ischemic evaluation. Patient denies chest pain or palpitations
Objective Data
-
Labs:
Laboratory Results
09/28/25 09/28/25
03:00 06:58
WBC 5.0
Hgb 7.9 L 7.8 L
Hct 24.7 L 24.6 L
Plt Count 151
Sodium 136
Potassium 4.2
Chloride 106
Carbon Dioxide 25
BUN 18
Creatinine 1.2
Glucose 125 H
Calcium 8.7
Vital Signs:
Vital Signs
Temp Pulse Resp BP Pulse Ox
98.3 F 81 18 99/57 94
09/28/25 11:48 09/28/25 11:48 09/28/25 11:48 09/28/25 11:48 09/28/25 11:48
I&O
09/27/25 09/28/25 09/29/25
06:59 06:59 06:59
Output Total 775 / 775
Balance -775 / -775
Physical Exam
-
General: No Apparent Distress
HEENT: Normocephalic and Atraumatic
Respiratory: Negative Wheezes
Cardiac: Regular Rhythm and S1/S2
GI: Soft
Musculoskeletal: No Edema
Neuro: AO x 3
Psych: Calm
Data Reviewed
-
Total Time Spent with Patient (in minutes): 44
Labs: Labs Reviewed by me
[2025-09-28 15:00] LABS: Troponin I 0.055 ng/ml
--- NOTE | 2025-09-28 16:06 | CM ---
Alert awake oriented patient who lives with [place]ana in a 2 story home with 1 step to enter and 10 steps to bed and bathroom.He is independent in driving and all ADLs.He uses walker and care.Offered VN he declined need.Alejandre letter given earlier
.Pt changed to inpatient IMM given signed on chart
Hx of KURTIS/ Prakash Jerez
PHarm WAYNE aguirre
PCP Dr Gifford
PLAN Home no needs
[2025-09-28] MEDS: REFRESH EYE DROPS (PF) 1 DROPS OPHTH (20:22)
[2025-09-28 22:15] LABS: Troponin I 0.066 ng/ml
[2025-09-29 03:10] VITALS: BP 107/59; BP 91/60; BP 96/54; PULSE 86; PULSE 91; PULSE 96
[2025-09-29 06:00] VITALS: BMI 35.1
[2025-09-29 07:55] VITALS: BP 113/69
[2025-09-29] MEDS: NSS (PRESERVATIVE FREE) 10 ML IV ×2 (08:42→20:22)
[2025-09-29] MEDS: PROTONIX IV 40 MG IV ×2 (08:42→20:22)
[2025-09-29 08:44] LABS: Hematocrit 25.7 % (39.0-52.0); Hemoglobin 8.2 g/dL (13.0-18.0); Mean Corp Hgb Conc. 31.9 g/dL (33.0-37.0); Mean Corpuscular Volume 95.2 fL (80.0-94.0); Platelet Count 150 10^3/uL (130-400); Red Cell Dist. Width 14.2 % (11.5-14.5)
[2025-09-29] MEDS: OCUVITE SOFTGEL 2 CAP PO (08:46)
[2025-09-29] MEDS: SENOKOT 8.6 MG PO (08:46)
[2025-09-29] MEDS: VITAMIN B-12 100 MCG PO (08:46)
[2025-09-29] MEDS: PROZAC 20 MG PO (08:46)
[2025-09-29] MEDS: LASIX 20 MG PO (08:46)
[2025-09-29] MEDS: LOW STRENGTH ASPIRIN 81 MG PO (08:46)
[2025-09-29] MEDS: CRESTOR 10 MG PO (08:46)
[2025-09-29] MEDS: FLOMAX 0.4 MG PO (08:47)
[2025-09-29] MEDS: PERCOCET 5/325 0.5 TABLET PO (08:50)
[2025-09-29 08:51] LABS: INR 1.25; PT 15.9 Sec (11.4-14.6)
[2025-09-29] MEDS: MIRALAX 17 GRAMS PO ×3 (08:54→22:28)
--- NOTE | 2025-09-29 08:58 | W.PN.GI.CBS2 ---
Addendum entered and electronically signed by Leena Silver DO 09/29/25 09:30:
The patient was seen and examined by me independently in collaboration with the nurse practitioner.
Past medical history/social history/medications/allergies/family history reviewed.
Lab data and imaging data reviewed.
Akil Bhatti is a 85 y.o. male w/ pmhx HTN, HLD, SSS s/p PPM nephrolithiasis, CAD, moderate , mild AI, mild MS, afib on eliquis admitted with nausea, vomiting and weakness found to be anemic with brown, heme positive stool.
Hgb 12.2 --> 9 --> 7.9 --> 7.8--> 8.2, MCV 97 with iron deficient parameters.
Last colonoscopy in 2015 with diverticulosis, otherwise, normal. Recent presentation to ER on 08/10/25 for uncomplicated diverticulitis
Last dose eliquis 09/27
I suspect his presenting symptoms are multifactorial. Appreciate cardiology input, stable to proceed with GI workup, plan for eventual output ischemic evaluation
Plan for EGD/Colonoscopy 10/01
Increase laxatives today, no BM in last 2 days
Low residue diet, change to clear liquids tomorrow + bowel prep
Trend hgb, stable today
IV iron
IV PPI
Original Note:
Today's Communication / Plan
-
Etiology of symptoms with shortness of breath related to cardio/pulm issue vs multi factorial with anemia vs other
hbg down to 7.8 then 8.2 today without transfusion needed
cont medical optimization -- per cards 09/28 stable to proceed with GI work up
stable this am but cont to monitor with need for O2 overnight
plan for EGD/colon Monday 10/01
cont low residue diet, will transition to clears in AM
will give Miralax TID today and in AM then colyte prep tomorrow
pt also on chronic senna
Last Eliquis 09/27 AM
trend hbg no transfusion needed yet
cont IV iron and PPI
Assessment / Plan
-
Pt is an 85yo with hx Hypertension, high cholesterol, sick sinus syndrome status post pacemaker, kidney stones, coronary artery disease, moderate aortic stenosis, mild aortic regurgitation, mild mitral stenosis, A-fib with newly started Eliquis
with onset of nausea, vomiting and weakness with shortness of breath over a few months with valvular disease. He is noted with drop in hbg over last few months with EDYTA. Pt also noted with increased troponin.
-exertional dyspnea
-EDYTA with recent drop in hgb and heme + stools
-nausea/vomiting- improved after admission
-afib on new Eliquis
-increased troponin
other med problems:
Hypertension, high cholesterol, sick sinus syndrome status post pacemaker, kidney stones, coronary artery disease, moderate aortic stenosis, mild aortic regurgitation, mild mitral stenosis
PLAN:
Etiology of symptoms with shortness of breath related to cardio/pulm issue vs multi factorial with anemia vs other
hbg down to 7.8 then 8.2 today without transfusion needed
cont medical optimization -- per cards 09/28 stable to proceed with GI work up
stable this am but cont to monitor with need for O2 overnight
plan for EGD/colon Monday 10/01
cont low residue diet, will transition to clears in AM
will give Miralax TID today and in AM then colyte prep tomorrow
pt also on chronic senna
Last Eliquis 09/27 AM
trend hbg no transfusion needed yet
cont IV iron and PPI
Subjective
Subjective
Date of Service: September 29, 2025
Pt feeling well on complaints, did require O2 overnight with sat 93-96%, LR diet, denies stools for 2 days
Objective
Data Reviewed
Laboratory Data:
Laboratory Results
09/29/25 08:22
Laboratory Results
Total Bilirubin 1.1 mg/dl (0.2-1.3) 09/27/25 12:39
AST 28 U/L (17-59) 09/27/25 12:39
ALT 23 U/L (0-50) 09/27/25 12:39
Alkaline Phosphatase 71 U/L (38-126) 09/27/25 12:39
Lipase 101 U/L (23-300) 09/27/25 12:39
Vital Signs and I&O:
Vital Signs
Temp Pulse Resp BP Pulse Ox
97.5 F 87 24 113/69 96
09/29/25 07:55 09/29/25 07:55 09/29/25 07:55 09/29/25 07:55 09/29/25 07:55
I&O
09/28/25 09/29/25 09/30/25
06:59 06:59 06:59
Intake Total 1260 / 1260
Output Total 775 / 775 2675 / 2675
Balance -775 / -775 -1415 / -1415
Physical Exam
Physical Exam
HEENT: Anicteric and Moist mucous membranes
Cardiology: Normal Sinus Rhythm
Pulmonary: Clear
GI: Non Distended and Non Tender
Extremities: Edema
Neuro: Non Focal
[2025-09-29 09:08] LABS: Troponin I 0.071 ng/ml
[2025-09-29 09:17] LABS: Blood Urea Nitrogen 20 mg/dl (9-20); Calcium 8.8 mg/dl (8.4-10.2); Carbon Dioxide 28 mmol/L (22-30); Chloride 104 mmol/L (98-107); Estimated Creatinine Clearance 44 ml/min; Glucose 127 mg/dl (70-99); Potassium 4.1 mmol/L (3.5-5.1); Sodium 137 mmol/L (135-145); eGFR 53.17
[2025-09-29 11:45] VITALS: BP 107/63
[2025-09-29] MEDS: FERRLECIT 110 MG IV (13:12)
--- NOTE | 2025-09-29 15:17 | W.PN.HOSP.TC ---
Today's Communication/Plan
-
Assessment / Plan
Assessment / Plan
General: No Apparent Distress, Comfortable and Conversant
HEENT: NormoCephalic, Moist mucous membranes, Atraumatic
Respiratory: Clear and Non Labored Respirations
Cardiac: S1/S2 and Regular Rhythm; No Rub or Gallop
GI: Soft, Non Tender, Non Distended and Normal Bowel Sounds
Musculoskeletal: No Edema, no deformity
: NO Petty
Neuro: Awake, Alert, Nonfocal/grossly intact
Psych: Calm and Intact Judgment/Insight
Assessment:
Acute anemia with heme positive stools, on top of anemia of chronic disease
Acute GI bleed, exacerbated by Eliquis
- anemia labs indicate iron deficiency (IV iron ordered) and B12 deficiency (replacement ordered)
- patient agreeable to EGD/Colon (tentatively planned for Wednesday per GI); cards pre-op eval appreciated
- continue PPI
- diet: LRD today, CLD tomorrow and NPO after midnight 10/01
- bowel regimen
- GI following
Chronic dyspnea on exertion
Nonischemic myocardial injury, possibly demand related to anemia
- Echo 07/2025: stable with preserved EF, moderate , mild AI, mild MS, mild MR
- no improvement with outpatient diuretics; no acute evidence of CHF
- OP Pulm w/u (PFTs, 6MWT) unremarkable
- inpatient ischemic eval (Cath) high risk given concern for GI bleed
- d/w DCA cards; plan is for OP stress test
- Patient can proceed with GI procedures without additional testing
- trend trops to peak
Atelectasis
- IS ordered
Paroxysmal atrial fibrillation
Sick sinus syndrome
Dual-chamber Medtronic pacemaker
- holding Eliquis; continue ASA
- continue oral 20mg daily Lasix
Moderate aortic stenosis
Mild mitral stenosis
RBBB
Essential hypertension
Hyperlipidemia - statin
Obesity w/ probable sleep apnea
h/o nephrolithiasis
Type 2 DM
- diet controlled
- SSI
- A1c: pending
CKD stage 2
BPH - on Flomax
DVT ppx: SCDs
Code: DNR/DNI
Anticipated Discharge: > 48 hours
Subjective/Interval History
-
Date of Service: September 29, 2025
Patient was seen and examined at bedside this morning. Comfortable, eating breakfast. Hemoglobin stable.
Objective Data
-
Labs:
Laboratory Results
09/29/25
08:22
WBC 5.8
Hgb 8.2 L
Hct 25.7 L
Plt Count 150
PT 15.9 H
INR 1.25
Sodium 137
Potassium 4.1
Chloride 104
Carbon Dioxide 28
BUN 20
Creatinine 1.3
Glucose 127 H
Calcium 8.8
Vital Signs:
Vital Signs
Temp Pulse Resp BP Pulse Ox
98 F 84 12 107/63 93
09/29/25 11:45 09/29/25 11:45 09/29/25 11:45 09/29/25 11:45 09/29/25 11:45
I&O
09/28/25 09/29/25 09/30/25
06:59 06:59 06:59
Intake Total 1260 / 1260
Output Total 775 / 775 2675 / 2675
Balance -775 / -775 -1415 / -1415
Review of Systems
-
History Source: Patient
All other systems: Reviewed and negative
Physical Exam
-
General: No Apparent Distress
[2025-09-29 15:58] VITALS: BP 97/54
[2025-09-29 19:48] VITALS: BP 115/66
[2025-09-29 23:30] VITALS: BP 106/63
[2025-09-30 03:18] VITALS: BP 108/68
[2025-09-30 06:00] VITALS: BMI 34.9
[2025-09-30 07:30] LABS: Hematocrit 27.7 % (39.0-52.0); Hemoglobin 8.7 g/dL (13.0-18.0); Mean Corp Hgb Conc. 31.4 g/dL (33.0-37.0); Mean Corpuscular Volume 96.5 fL (80.0-94.0); Platelet Count 163 10^3/uL (130-400); Red Cell Dist. Width 14.2 % (11.5-14.5)
[2025-09-30 07:54] LABS: Blood Urea Nitrogen 21 mg/dl (9-20); Calcium 8.7 mg/dl (8.4-10.2); Carbon Dioxide 29 mmol/L (22-30); Chloride 103 mmol/L (98-107); Estimated Creatinine Clearance 44 ml/min; Glucose 130 mg/dl (70-99); Potassium 4.1 mmol/L (3.5-5.1); Sodium 138 mmol/L (135-145); eGFR 53.17
[2025-09-30] MEDS: FLOMAX 0.4 MG PO (08:08)
[2025-09-30] MEDS: LOW STRENGTH ASPIRIN 81 MG PO (08:08)
[2025-09-30] MEDS: VITAMIN B-12 100 MCG PO (08:08)
[2025-09-30] MEDS: MIRALAX 17 GRAMS PO (08:08)
[2025-09-30] MEDS: SENOKOT 8.6 MG PO (08:09)
[2025-09-30] MEDS: CRESTOR 10 MG PO (08:09)
[2025-09-30] MEDS: OCUVITE SOFTGEL 2 CAP PO (08:09)
[2025-09-30] MEDS: LASIX 20 MG PO (08:09)
[2025-09-30] MEDS: PROZAC 20 MG PO (08:09)
[2025-09-30] MEDS: PROTONIX IV 40 MG IV ×2 (08:10→20:25)
[2025-09-30] MEDS: PERCOCET 5/325 0.5 TABLET PO (08:10)
[2025-09-30] MEDS: NSS (PRESERVATIVE FREE) 10 ML IV ×2 (08:10→20:25)
[2025-09-30] MEDS: FLUSH (NSS) 1 FLUSH IV ×2 (08:10→13:33)
[2025-09-30 08:20] VITALS: BP 117/81
--- NOTE | 2025-09-30 09:52 | W.PN.GI.CBS2 ---
Today's Communication / Plan
-
Bowel prep today. Clear liquids, NPO PMN for EGD/Colonoscopy tomorrow
Assessment / Plan
-
Akil Bhatti is a 85 y.o. male w/ pmhx HTN, HLD, SSS s/p PPM nephrolithiasis, CAD, moderate , mild AI, mild MS, afib on eliquis admitted with nausea, vomiting and weakness found to be anemic with brown, heme positive stool.
Hgb 12.2 --> 9 --> 7.9 --> 7.8--> 8.2, MCV 97 with iron deficient parameters.
Last colonoscopy in 2015 with diverticulosis, otherwise, normal. Recent presentation to ER on 08/10/25 for uncomplicated diverticulitis
Last dose eliquis 12 AM
I suspect his presenting symptoms are multifactorial. Appreciate cardiology input, stable to proceed with GI workup, plan for eventual output ischemic evaluation
Plan for EGD/Colonoscopy tomorrow
Clear liquids today + bowel prep-- will give dulcolax now, still no BM, may require enema
Trend hgb, stable today
IV iron
IV PPI
Subjective
Subjective
Date of Service: September 30, 2025
No overnight events. Hemoglobin 8.7 today. Plan for EGD/Colonoscopy tomorrow
Objective
Data Reviewed
Laboratory Data:
Laboratory Results
09/30/25 05:43
09/30/25 05:43
Laboratory Results
PT 15.9 Sec (11.4-14.6) H 09/29/25 08:22
INR 1.25 09/29/25 08:22
Total Bilirubin 1.1 mg/dl (0.2-1.3) 09/27/25 12:39
AST 28 U/L (17-59) 09/27/25 12:39
ALT 23 U/L (0-50) 09/27/25 12:39
Alkaline Phosphatase 71 U/L (38-126) 09/27/25 12:39
Lipase 101 U/L (23-300) 09/27/25 12:39
Vital Signs and I&O:
Vital Signs
Temp Pulse Resp BP Pulse Ox
98 F 87 18 117/81 95
09/30/25 08:20 09/30/25 08:20 09/30/25 08:20 09/30/25 08:20 09/30/25 08:20
I&O
09/29/25 09/30/25 10/01/25
06:59 06:59 06:59
Intake Total 1260 / 1260 240 / 240
Output Total 2675 / 2675 950 / 950
Balance -1415 / -1415 -710 / -710
Physical Exam
Physical Exam
HEENT: Anicteric and Moist mucous membranes
Cardiology: Normal Sinus Rhythm
Pulmonary: Clear
GI: Non Distended and Non Tender
Extremities: Edema
Neuro: Non Focal
[2025-09-30] MEDS: DULCOLAX 10 MG PO (10:08)
[2025-09-30 10:47] VITALS: BMI 34.9
[2025-09-30 11:14] VITALS: BP 119/65
--- NOTE | 2025-09-30 11:47 | W.PN.HOSP.TC ---
Today's Communication/Plan
-
Assessment / Plan
Assessment / Plan
General: No Apparent Distress, Comfortable and Conversant
HEENT: NormoCephalic, Moist mucous membranes, Atraumatic
Respiratory: Clear and Non Labored Respirations
Cardiac: S1/S2 and Regular Rhythm; No Rub or Gallop
GI: Soft, Non Tender, Non Distended and Normal Bowel Sounds
Musculoskeletal: No Edema, no deformity
: NO Petty
Neuro: Awake, Alert, Nonfocal/grossly intact
Psych: Calm and Intact Judgment/Insight
Assessment:
Acute anemia with heme positive stools, on top of anemia of chronic disease
Acute GI bleed, exacerbated by Eliquis
- anemia labs indicate iron deficiency (IV iron ordered) and B12 deficiency (replacement ordered)
- patient agreeable to EGD/Colon (tentatively planned for Wednesday per GI); cards pre-op eval appreciated
- continue PPI
- diet: CLD today and NPO after midnight for procedure 10/01
- bowel regimen
- GI following
Chronic dyspnea on exertion
Nonischemic myocardial injury, possibly demand related to anemia
- Echo 07/2025: stable with preserved EF, moderate , mild AI, mild MS, mild MR
- no improvement with outpatient diuretics; no acute evidence of CHF
- OP Pulm w/u (PFTs, 6MWT) unremarkable
- inpatient ischemic eval (Cath) high risk given concern for GI bleed
- d/w DCA cards; plan is for OP stress test
- Patient can proceed with GI procedures without additional testing
- trend trops to peak
Atelectasis
- IS ordered
Paroxysmal atrial fibrillation
Sick sinus syndrome
Dual-chamber Medtronic pacemaker
- holding Eliquis, last dose 1211 am; continue ASA
- continue oral 20mg daily Lasix
Moderate aortic stenosis
Mild mitral stenosis
RBBB
Hyperlipidemia - statin
Obesity w/ probable sleep apnea
h/o nephrolithiasis
CKD stage 2
BPH - on Flomax
DVT ppx: SCDs
Code: DNR/DNI
Anticipated Discharge: > 48 hours
Subjective/Interval History
-
Date of Service: September 30, 2025
Patient was seen and examined at bedside this morning. Feeling well laying in bed.
Objective Data
-
Labs:
Laboratory Results
09/30/25
05:43
WBC 5.9
Hgb 8.7 L
Hct 27.7 L
Plt Count 163
Sodium 138
Potassium 4.1
Chloride 103
Carbon Dioxide 29
BUN 21 H
Creatinine 1.3
Glucose 130 H
Calcium 8.7
Vital Signs:
Vital Signs
Temp Pulse Resp BP Pulse Ox
98.2 F 83 18 119/65 95
09/30/25 11:14 09/30/25 11:14 09/30/25 11:14 09/30/25 11:14 09/30/25 11:14
I&O
09/29/25 09/30/25 10/01/25
06:59 06:59 06:59
Intake Total 1260 / 1260 240 / 240
Output Total 2675 / 2675 950 / 950
Balance -1415 / -1415 -710 / -710
Review of Systems
-
History Source: Patient
All other systems: Reviewed and negative
Physical Exam
-
General: No Apparent Distress
[2025-09-30] MEDS: FERRLECIT 110 MG IV (13:33)
[2025-09-30 16:00] VITALS: BP 106/66
--- NOTE | 2025-09-30 16:45 | PTCARENOTE ---
Pt AAO x3, BOSS well. VSS. On room air- pulseox 97%, no SOB noted. Abd obese, sl firm, sheila clear liquid diet, pt to start bowel prep for EGD/colonoscopy on 10/01. Voiding clear saravanan urine in urinal without difficulty. Resting in bed at present,
no c/o. Will continue to monitor.
[2025-09-30] MEDS: NULYTELY SOLUTION 4 LITERS PO (17:32)
[2025-09-30 23:35] VITALS: BP 122/69
[2025-10-01] VITALS (7 sets, daily range): BP systolic 97–115; BP diastolic 54–73; BMI 34.8
[2025-10-01 07:39] LABS: Hematocrit 29.8 % (39.0-52.0); Hemoglobin 9.6 g/dL (13.0-18.0); Mean Corp Hgb Conc. 32.2 g/dL (33.0-37.0); Mean Corpuscular Volume 97.1 fL (80.0-94.0); Platelet Count 175 10^3/uL (130-400); Red Cell Dist. Width 14.2 % (11.5-14.5)
[2025-10-01 08:01] LABS: Blood Urea Nitrogen 13 mg/dl (9-20); Calcium 8.8 mg/dl (8.4-10.2); Carbon Dioxide 29 mmol/L (22-30); Chloride 105 mmol/L (98-107); Estimated Creatinine Clearance 47 ml/min; Glucose 123 mg/dl (70-99); Potassium 4.2 mmol/L (3.5-5.1); Sodium 139 mmol/L (135-145); eGFR 58.53
[2025-10-01] MEDS: NSS (PRESERVATIVE FREE) 10 ML IV ×2 (08:25→19:55)
[2025-10-01] MEDS: PROTONIX IV 40 MG IV ×2 (08:25→19:54)
--- NOTE | 2025-10-01 09:17 | W.PN.CARDCBS ---
Addendum entered and electronically signed by Marti Johnson DO 10/01/25 20:28:
I saw and examined the patient.
The Printing Plate Setter's note was reviewed and I agree with the note.
Comment: Patient was seen and examined following endoscopy and colonoscopy with at bedside. He denies shortness of breath at rest or chest pain.
GEN: NAD, AAO x 3
LUNGS: Bronchovesicular breath sounds, decreased but clear
CV: Regular, positive S1-S2. 2/6 murmur LSB. + Device
ABD: Soft, nondistended. Positive bowel sounds
EXT: No edema B/L LE
Plan:
Symptomatic anemia following initiation of Eliquis for newly diagnosed PAF by pacemaker
-Hemoglobin on admission 7.8 grams per deciliter with baseline hemoglobin 12.2 August 10, 2025 and hemoglobin 10�12g/dL in 2023.
-Endoscopy with small bleeding AVM status post cautery and colonoscopy with multiple polyps. May need outpatient capsule endoscopy
-Per GI okay to start Eliquis tomorrow with close monitoring for rebleed
Newly diagnosed paroxysmal atrial fibrillation with history of sick sinus syndrome status post dual-chamber Medtronic pacemaker
-Low burden PAF noted on device currently in sinus rhythm
-Continue monitoring through device.
-If hemoglobin stable tomorrow and Eliquis resumed, would stop aspirin
-Will need close monitoring of H&H
-Could consider future Watchman evaluation as an outpatient
Dyspnea on exertion likely multifactorial with moderate aortic stenosis, risk factors for coronary artery disease, PAF and symptomatic anemia
-Mildly abnormal troponin, 0.045�0.071; repeat in a.m.
-Had previously been scheduled for outpatient Lexiscan/PET stress test
-Ideally keep hemoglobin greater than 10 g/dL
-Echo on 07/25/2025 as noted moderate with peak/mean 50/32 and LESLIE 1 cm sq. No read to repeat
-Appears euvolemic. Continue Lasix 20 mg once daily.
Will follow with you
Original Note:
Today's Communication / Plan
-
There was a small bleeding angiectasia on the upper endoscopy and multiple polyps that were removed on colonoscopy
Eventually resume Eliquis for paroxysmal A-fib
Cause of GONZALEZ unclear and outpatient stress test upcoming, wonder if some of his symptoms could have been due to anemia
Impression / Plan
-
PCP: Dr. Gifford
Spot Washer: Dr. Johnson
Impression:
Dyspnea on exertion
Acute anemia
Heme positive stool
Elevated troponin
Paroxysmal atrial fibrillation
Sick sinus syndrome
Dual-chamber Medtronic pacemaker
Moderate aortic stenosis
Mild mitral stenosis
RBBB
Hypertension
Hyperlipidemia
Obesity w/ probable sleep apnea
h/o nephrolithiasis
Anemia
A1c 6.9%, consistent w/ DM
Lexiscan stress test 09/2021: Fixed basal inferolateral and mid inferolateral defect with no evidence of ischemia, ejection fraction 65%
PET CT scan 11/28/2024 with no ischemia, fixed inferior apical defect likely soft tissue attenuation, coronary flow reserve reduced, high density along coronary arteries which could represent combination of calcified plaque and stents
Echo 08/2021: E 60 to 65%, mild mitral stenosis with mean gradient of 5 mmHg, moderate aortic stenosis with mean gradient of 21 mmHg
Echo 01/06/2023: EF 65%, mild concentric LVH, mild mitral stenosis with mean pressure gradient of 4 mmHg, mild to moderate aortic stenosis with mean gradient of 23 mmHg, aortic valve area 1.3 cm�, mildly dilated aortic root at 3.9
Echo 02/14/2024: EF 55-60%, mild cLVH, mild MS w/ mean gradient 4mmHg, mild MR, moderate w/ peak/mean gradients 45/27 mmHg, LESLIE 0.9 cm2, trace AI
Echo 07/25/2025 with normal LV/RV size and function, LVEF 61%, stage I diastolic dysfunction, moderate aortic stenosis, peak/mean gradients 50 and 32 mmHg respectively, LESLIE 1 cm, mild AI, mild mitral stenosis, Mild MR, mild TR. No change compared
to echo 02/14/2024.
Plan:
-Patient presents with nausea, vomiting, weakness, heme positive stool and found to be newly anemic with hemoglobin 7.8. GI planning for endoscopic evaluation on Wednesday10/01/25 cardiology consulted for history of moderate aortic stenosis and more
newly diagnosed atrial fibrillation prompting initiation of Eliquis as an outpatient.
-Patient was started on Eliquis in early September after he was found to have a 5-hour long episode of A-fib, Eliquis is now on hold. First dose of Eliquis was 09/25/2025 and has been on hold since admission 09/27/2025 PM
-There is no history of thromboembolic event
-Telemetry reviewed by me 10/01/2025 shows SR
-Prior to admission patient was seen in the cardiology office 09/21/2025 and reported 6 months of GONZALEZ. Patient had an echo on 07/25/2025 as noted above that showed moderate with peak/mean 50/32 and LESLIE 1 cm sq
-Patient also saw pulmonology as a new patient on 09/05/2025 for his GONZALEZ symptoms and there were no concerning findings on the CT of his chest at that time and it was felt that his GONZALEZ could be due to CHF and
-Previous labs in [facility] reviewed by me on 10/01/2025. Hgb was 9.3 on outpatient labs on 09/25/2025 which is just prior to the initiation of his Eliquis. Hgb was 11.7 on outpatient labs 06/12/2025.
-Initial troponin was 0.045 and then up as high 0.071 on the morning of 09/29/2025. Recheck troponin with labs on the morning of 10/02/2025, orders placed by me.
-Patient completed upper and lower endoscopy on 10/01/2025 and on upper endoscopy there was biopsy performed to rule out Wharton's esophagus in the setting of salmon-colored mucosa and there was a single small angiectasia with stigmata of recent
bleeding in the second part of the duodenum. Then on colonoscopy there were multiple polyps removed and multiple small mouth diverticula.
-Patient was taking Lasix 20 mg PO daily prior to admission for his symptoms of GONZALEZ, but he did not have a symptomatic improvement despite attempts at diuresis.
-Patient is scheduled for an outpatient PET stress test to investigate his symptoms
HPI: Akil is a 85-year-old male with past medical history significant for HFpEF, aortic stenosis (moderate), paroxysmal atrial fibrillation, essential hypertension, hyperlipidemia, type II diabetes mellitus, CKD stage II, anemia of chronic disease,
asthma and obstructive sleep apnea who presented to [facility] ED for evaluation of intractable vomiting that started 09/27/2025. Patient reports that following breakfast he began vomiting and continued to dry heave until after arrival in the ED. In
addition, he has a 6 month history of worsening dyspnea on exertion and has been undergoing outpatient cardiac evaluation with recent initiation of furosemide with no improvement in symptoms. Patient admits today that he has been having chest
tightness with some episodes of shortness of breath for past 6 months. Also, pacemaker interrogation at recent office visit 09/21/2025 notable for 2 episodes of atrial fibrillation including a 5-hour episode on 08/18/2025. Overall A-fib burden was
0.6%. He was started on Eliquis and tells me first dose was 2 days ago.
Progress Note - Spot Washer
Subjective
Date of Service: October 01, 2025
Patient admitted with GONZALEZ in the setting of anemia, he might feel a bit better
Objective
Labs:
10/01/25 06:53
10/01/25 06:53
Labs
Hgb 9.6 g/dL (13.0-18.0) L 10/01/25 06:53
Hct 29.8 % (39.0-52.0) L 10/01/25 06:53
Plt Count 175 10^3/uL (130-400) 10/01/25 06:53
PT 15.9 Sec (11.4-14.6) H 09/29/25 08:22
INR 1.25 09/29/25 08:22
Sodium 139 mmol/L (135-145) 10/01/25 06:53
Potassium 4.2 mmol/L (3.5-5.1) 10/01/25 06:53
BUN 13 mg/dl (9-20) 10/01/25 06:53
Creatinine 1.2 mg/dL (0.7-1.3) 10/01/25 06:53
Glucose 123 mg/dl (70-99) H 10/01/25 06:53
Troponins
09/28/25 09/28/25 09/28/25
08:47 14:19 21:31
Troponin I 0.045 H* 0.055 H* 0.066 H*
09/29/25
08:22
Troponin I 0.071 H*
Vital Signs and I&O:
Vital Signs
Temp Pulse Resp BP Pulse Ox
98.5 F 76 16 108/62 95
10/01/25 07:00 10/01/25 07:00 10/01/25 07:00 10/01/25 07:00 10/01/25 08:45
Vital Signs
Temp Pulse Resp BP Pulse Ox
98.5 F 76 16 108/62 95
10/01/25 07:00 10/01/25 07:00 10/01/25 07:00 10/01/25 07:00 10/01/25 08:45
Intake & Output
09/29/25 09/30/25 10/01/25 10/02/25
06:59 06:59 06:59 06:59
Intake Total 1260 / 1260 240 / 240 1490 / 1490
Output Total 2675 / 2675 950 / 950 1200 / 1200
Balance -1415 / -1415 -710 / -710 290 / 290
Physical Exam
Physical Exam
GEN: NAD, AAO x 3
LUNGS: RA. No audible wheeze
CV: SR on telemetry. 2/6 murmur LSB
EXT: No edema B/L LE
[2025-10-01] MEDS: CRESTOR 10 MG PO (11:56)
[2025-10-01] MEDS: FLOMAX 0.4 MG PO (11:56)
[2025-10-01] MEDS: OCUVITE SOFTGEL 2 CAP PO (11:56)
[2025-10-01] MEDS: PROZAC 20 MG PO (11:56)
[2025-10-01] MEDS: VITAMIN B-12 100 MCG PO (11:56)
[2025-10-01] MEDS: SENOKOT 8.6 MG PO (11:56)
[2025-10-01] MEDS: LOW STRENGTH ASPIRIN 81 MG PO (11:56)
[2025-10-01] MEDS: LASIX 20 MG PO (11:57)
[2025-10-01] MEDS: PERCOCET 5/325 PO (12:04)
[2025-10-01] MEDS: FERRLECIT 110 MG IV (14:34)
--- NOTE | 2025-10-01 16:21 | W.PN.HOSP.TC ---
Today's Communication/Plan
-
Assessment / Plan
Assessment / Plan
General: No Apparent Distress, Comfortable and Conversant
HEENT: NormoCephalic, Moist mucous membranes, Atraumatic
Respiratory: Clear and Non Labored Respirations
Cardiac: S1/S2 and Regular Rhythm; No Rub or Gallop
GI: Soft, Non Tender, Non Distended and Normal Bowel Sounds
Musculoskeletal: No Edema, no deformity
: NO Petty
Neuro: Awake, Alert, Nonfocal/grossly intact
Psych: Calm and Intact Judgment/Insight
Assessment:
Acute anemia with heme positive stools, on top of anemia of chronic disease
Acute GI bleed, exacerbated by Eliquis
- anemia labs indicate iron deficiency (IV iron ordered) and B12 deficiency (replacement ordered)
- Status post upper and lower endoscopy today 10/01; findings of recently bleeding duodenal angioectasia treated with APC, multiple colonic polyps that were removed
- Resume regular diet
- continue PPI
- bowel regimen
- Appreciate GI guidance
- Hemoglobin improving, continue to monitor, will require oral iron supplementation at discharge
- Likely restart Eliquis in the next 24 hours
Chronic dyspnea on exertion
Nonischemic myocardial injury, possibly demand related to anemia
- Echo 07/2025: stable with preserved EF, moderate , mild AI, mild MS, mild MR
- no improvement with outpatient diuretics; no acute evidence of CHF
- OP Pulm w/u (PFTs, 6MWT) unremarkable
- inpatient ischemic eval (Cath) high risk given concern for GI bleed
- d/w DCA cards; plan is for OP stress test
- Patient can proceed with GI procedures without additional testing
Atelectasis
- IS ordered
Paroxysmal atrial fibrillation
Sick sinus syndrome
Dual-chamber Medtronic pacemaker
- holding Eliquis due to GI bleeding, last dose 12/11 am, would likely restart in the next 24 hours; continue ASA
- continue oral 20mg daily Lasix
Moderate aortic stenosis
Mild mitral stenosis
RBBB
Hyperlipidemia - statin
Obesity w/ probable sleep apnea
h/o nephrolithiasis
CKD stage 2
BPH - on Flomax
DVT ppx: SCDs
Code: DNR/DNI
Anticipated Discharge: 24 - 48 hours
Subjective/Interval History
-
Date of Service: October 01, 2025
Patient was seen and examined at bedside. He underwent upper and lower endoscopy today with finding of recent bleeding angioectasia in his duodenum which was cauterized.
Objective Data
-
Labs:
Laboratory Results
10/01/25
06:53
WBC 5.3
Hgb 9.6 L
Hct 29.8 L
Plt Count 175
Sodium 139
Potassium 4.2
Chloride 105
Carbon Dioxide 29
BUN 13
Creatinine 1.2
Glucose 123 H
Calcium 8.8
Vital Signs:
Vital Signs
Temp Pulse Resp BP Pulse Ox
98.3 F 84 20 97/54 94
10/01/25 15:00 10/01/25 15:00 10/01/25 15:00 10/01/25 15:00 10/01/25 15:00
I&O
09/30/25 10/01/25 10/02/25
06:59 06:59 06:59
Intake Total 240 / 240 1490 / 1490
Output Total 950 / 950 1200 / 1200
Balance -710 / -710 290 / 290
Review of Systems
-
History Source: Patient
All other systems: Reviewed and negative
Physical Exam
-
General: No Apparent Distress
--- NOTE | 2025-10-01 16:36 | CM ---
DEA Domínguez reviewed signed on chart.
Offered VN he requested [facility] .
S Gunn notied of referral via TT,
visiting at bedside.
PLAN Home with [facility]
[2025-10-02 06:00] VITALS: BMI 34.7
[2025-10-02 07:05] LABS: Troponin I 0.055 ng/ml
[2025-10-02 07:20] VITALS: BP 117/64
[2025-10-02] MEDS: FLOMAX 0.4 MG PO (08:14)
[2025-10-02] MEDS: SENOKOT 8.6 MG PO (08:14)
[2025-10-02] MEDS: VITAMIN B-12 100 MCG PO (08:14)
[2025-10-02] MEDS: LOW STRENGTH ASPIRIN 81 MG PO (08:14)
[2025-10-02] MEDS: PERCOCET 5/325 0.5 TABLET PO (08:14)
[2025-10-02] MEDS: CRESTOR 10 MG PO (08:15)
[2025-10-02] MEDS: OCUVITE SOFTGEL 2 CAP PO (08:15)
[2025-10-02] MEDS: PROZAC 20 MG PO (08:15)
[2025-10-02] MEDS: LASIX 20 MG PO (08:16)
[2025-10-02] MEDS: PROTONIX IV 40 MG IV ×2 (08:16→20:13)
[2025-10-02] MEDS: NSS (PRESERVATIVE FREE) 10 ML IV ×2 (08:16→20:13)
[2025-10-02] MEDS: FLUSH (NSS) 1 FLUSH IV ×2 (08:16→14:14)
[2025-10-02 08:59] LABS: Hematocrit 28.5 % (39.0-52.0); Hemoglobin 9.2 g/dL (13.0-18.0)
[2025-10-02 10:22] VITALS: BMI 34.7
--- NOTE | 2025-10-02 11:08 | W.PN.CARDCBS ---
Addendum entered and electronically signed by Kareem Akhtar MD 10/02/25 14:21:
I saw and examined the patient.
The Assistant Director's note was reviewed and I agree with the note.
Comment:
GEN: No distress, awake, Ox3
HEENT: supple, anicteric, mmm
LUNGS: CTA, no wheezes/rales
CV: Reg, S1/S2, 2/6 syst LSB, no gallop
ABD: soft, BS+, NT/ND
EXT: No edema
NEURO: Gross non-focal
SKIN: No rash
Plan:
Back on Eliquis 5 mg p.o. twice daily tonight. Hemoglobin overall stable at 9.2.
Okay for discharge from cardiology standpoint. If he has further episodes could consider watchman.
Continue Lasix 20 mg p.o. daily.
Continue to treat moderate to severe aortic stenosis conservatively for now.
Addendum entered and electronically signed by Yvonne Drummond PA-C 10/02/25 13:51:
Patient was offered PET stress test, but declined citing he had a stress test 11/28/24. Not sure if this was reviewed at his last office visit. For now we will not schedule PET stress test, but instead arrange for cardiology follow up in the office.
Original Note:
Today's Communication / Plan
-
Discharged home today and start Eliquis 5 mg BID at home tonight
Consider Watchman if he has recurrent bleeding, patient is familiar with the device and would be interested
Cardiology follow-up arranged
Impression / Plan
-
PCP: Dr. Gifford
Hat Brim Curler: Dr. Johnson
Impression:
Dyspnea on exertion
Acute anemia
Heme positive stool
Elevated troponin
Paroxysmal atrial fibrillation
Sick sinus syndrome
Dual-chamber Medtronic pacemaker
Moderate aortic stenosis
Mild mitral stenosis
RBBB
Hypertension
Hyperlipidemia
Obesity w/ probable sleep apnea
h/o nephrolithiasis
Anemia
A1c 6.9%, consistent w/ DM
Lexiscan stress test 09/2021: Fixed basal inferolateral and mid inferolateral defect with no evidence of ischemia, ejection fraction 65%
PET CT scan 11/28/2024 with no ischemia, fixed inferior apical defect likely soft tissue attenuation, coronary flow reserve reduced, high density along coronary arteries which could represent combination of calcified plaque and stents
Echo 08/2021: E 60 to 65%, mild mitral stenosis with mean gradient of 5 mmHg, moderate aortic stenosis with mean gradient of 21 mmHg
Echo 01/06/2023: EF 65%, mild concentric LVH, mild mitral stenosis with mean pressure gradient of 4 mmHg, mild to moderate aortic stenosis with mean gradient of 23 mmHg, aortic valve area 1.3 cm�, mildly dilated aortic root at 3.9
Echo 02/14/2024: EF 55-60%, mild cLVH, mild MS w/ mean gradient 4mmHg, mild MR, moderate w/ peak/mean gradients 45/27 mmHg, LESLIE 0.9 cm2, trace AI
Echo 07/25/2025 with normal LV/RV size and function, LVEF 61%, stage I diastolic dysfunction, moderate aortic stenosis, peak/mean gradients 50 and 32 mmHg respectively, LESLIE 1 cm, mild AI, mild mitral stenosis, Mild MR, mild TR. No change compared
to echo 02/14/2024.
Plan:
-Patient presents with nausea, vomiting, weakness, heme positive stool and found to be newly anemic with hemoglobin 7.8. GI planning for endoscopic evaluation on Wednesday10/01/25 and cardiology consulted for history of moderate aortic stenosis and
more newly diagnosed atrial fibrillation prompting initiation of Eliquis as an outpatient.
-Patient was started on Eliquis in early September after he was found to have a 5-hour long episode of A-fib seen on device interrogation. First dose of Eliquis was 09/25/2025 and has been on hold since admission 09/27/2025 PM
-Previous labs in [facility] reviewed by me and Hgb was 11.7 on outpatient labs 06/12/2025. Hgb was 9.3 on outpatient labs on 09/25/2025 which is just prior to the initiation of his Eliquis. Hgb was 7.8 on admission
-Patient completed upper and lower endoscopy on 10/01/2025 and on upper endoscopy there was biopsy performed to rule out Wharton's esophagus in the setting of salmon-colored mucosa and there was a single small angiectasia with stigmata of recent
bleeding in the second part of the duodenum. Then on colonoscopy there were multiple polyps removed and multiple small mouth diverticula.
-If patient has recurrent bleeding event then could consider Watchman device and we reviewed this, he has a close friend who recently had a watchman and would be interested.
-There is no history of thromboembolic event
-Telemetry reviewed by me 10/01/2025 shows SR
-Resume Eliquis 5 mg BID on 10/02/2025 PM
-Prior to admission patient was seen in the cardiology office 09/21/2025 and reported 6 months of GONZALEZ. Patient had an echo on 07/25/2025 as noted above that showed moderate with peak/mean 50/32 and LESLIE 1 cm sq
-Patient also saw pulmonology as a new patient on 09/05/2025 for his GONZALEZ symptoms and there were no concerning findings on the CT of his chest at that time and it was felt that his GONZALEZ could be due to CHF and
-Some of his symptoms could be due to anemia seen on admission.
-Initial troponin was 0.045 and then peaked at 0.071. No complaints of chest pain. We will manage this is a nonischemic myocardial injury troponin elevation.
-Patient was already scheduled for an outpatient PET stress test to investigate his symptoms of GONZALEZ for months prior to admission, we will continue with this plan
-Patient was taking Lasix 20 mg PO daily prior to admission for his symptoms of GONZALEZ, but he did not have a symptomatic improvement despite attempts at diuresis.
-Case reviewed with patient's hospitalist attending and plan is for likely discharge to home on 10/02/2025, cardiology follow-up arranged
HPI: Akil is a 85-year-old male with past medical history significant for HFpEF, aortic stenosis (moderate), paroxysmal atrial fibrillation, essential hypertension, hyperlipidemia, type II diabetes mellitus, CKD stage II, anemia of chronic disease,
asthma and obstructive sleep apnea who presented to [facility] ED for evaluation of intractable vomiting that started 09/27/2025. Patient reports that following breakfast he began vomiting and continued to dry heave until after arrival in the ED. In
addition, he has a 6 month history of worsening dyspnea on exertion and has been undergoing outpatient cardiac evaluation with recent initiation of furosemide with no improvement in symptoms. Patient admits today that he has been having chest
tightness with some episodes of shortness of breath for past 6 months. Also, pacemaker interrogation at recent office visit 09/21/2025 notable for 2 episodes of atrial fibrillation including a 5-hour episode on 08/18/2025. Overall A-fib burden was
0.6%. He was started on Eliquis and tells me first dose was 2 days ago.
Progress Note - Hat Brim Curler
Subjective
Date of Service: October 02, 2025
Patient has had some symptomatic improvement since admission
Objective
Labs:
10/02/25 06:10
10/01/25 06:53
Labs
Hgb 9.2 g/dL (13.0-18.0) L 10/02/25 06:10
Hct 28.5 % (39.0-52.0) L 10/02/25 06:10
Plt Count 175 10^3/uL (130-400) 10/01/25 06:53
PT 15.9 Sec (11.4-14.6) H 09/29/25 08:22
INR 1.25 09/29/25 08:22
Sodium 139 mmol/L (135-145) 10/01/25 06:53
Potassium 4.2 mmol/L (3.5-5.1) 10/01/25 06:53
BUN 13 mg/dl (9-20) 10/01/25 06:53
Creatinine 1.2 mg/dL (0.7-1.3) 10/01/25 06:53
Glucose 123 mg/dl (70-99) H 10/01/25 06:53
Troponins
10/02/25
06:11
Troponin I 0.055 H*
Vital Signs and I&O:
Vital Signs
Temp Pulse Resp BP Pulse Ox
97.6 F 81 18 117/64 92
10/02/25 07:20 10/02/25 08:16 10/02/25 07:20 10/02/25 08:16 10/02/25 08:12
Vital Signs
Temp Pulse Resp BP Pulse Ox
97.6 F 81 18 117/64 92
10/02/25 07:20 10/02/25 08:16 10/02/25 07:20 10/02/25 08:16 10/02/25 08:12
Intake & Output
09/30/25 10/01/25 10/02/25 10/03/25
06:59 06:59 06:59 06:59
Intake Total 240 / 240 1490 / 1490 590 / 590
Output Total 950 / 950 1200 / 1200 1900 / 1900
Balance -710 / -710 290 / 290 -1310 / -1310
Physical Exam
Physical Exam
GEN: NAD, AAO x 3
LUNGS: RA. No audible wheeze
CV: SR on telemetry. 2/6 murmur LSB
EXT: No edema B/L LE
--- NOTE | 2025-10-02 11:11 | VNURNOTE ---
Home Health Liaison met with patient at bedside to discuss [facility] nurse/therapy, visits, schedule and homebound status. Patient is agreeable and understands that visits at home will be 2-3 x per week to assess and teach medical management. he is
familiar with [facility] services; he and spouse have had us in the past. Patient is aware that [facility] will contact them for start of care within a week after discharge from . Provided contact number for [facility].
[facility] referral completed in [facility].
--- NOTE | 2025-10-02 14:11 | W.PN.HOSP.TC ---
Today's Communication/Plan
-
Assessment / Plan
Assessment / Plan
General: No Apparent Distress, Comfortable and Conversant
HEENT: NormoCephalic, Moist mucous membranes, Atraumatic
Respiratory: Clear and Non Labored Respirations
Cardiac: S1/S2 and Regular Rhythm; No Rub or Gallop
GI: Soft, Non Tender, Non Distended and Normal Bowel Sounds
Musculoskeletal: No Edema, no deformity
: NO Petty
Neuro: Awake, Alert, Nonfocal/grossly intact
Psych: Calm and Intact Judgment/Insight
Assessment:
Acute anemia with heme positive stools, on top of anemia of chronic disease
Acute GI bleed, exacerbated by Eliquis
- anemia labs indicate iron deficiency (IV iron ordered) and B12 deficiency (replacement ordered)
- Status post upper and lower endoscopy 10/01; findings of recently bleeding duodenal angioectasia treated with APC, multiple colonic polyps that were removed
- continue PPI
- Regular diet and bowel regimen
- Hemoglobin has overall improved and remained stable around 9.5
- Plan to restart Eliquis this evening 10/02
- To be evaluated by PT/OT
Chronic dyspnea on exertion
Nonischemic myocardial injury, possibly demand related to anemia
- Echo 07/2025: stable with preserved EF, moderate , mild AI, mild MS, mild MR
- no improvement with outpatient diuretics; no acute evidence of CHF
- OP Pulm w/u (PFTs, 6MWT) unremarkable
- inpatient ischemic eval (Cath) high risk given concern for GI bleed
- d/w DCA cards; plan is for OP stress test
Atelectasis
- IS ordered
Paroxysmal atrial fibrillation
Sick sinus syndrome
Dual-chamber Medtronic pacemaker
- Restarting Eliquis this evening 10/02; continue ASA
- continue oral 20mg daily Lasix
Moderate aortic stenosis
Mild mitral stenosis
RBBB
Hyperlipidemia - statin
Obesity w/ probable sleep apnea
h/o nephrolithiasis
CKD stage 2
BPH - on Flomax
DVT ppx: SCDs
Code: DNR/DNI
Anticipated Discharge: 24 - 48 hours
Subjective/Interval History
-
Date of Service: October 02, 2025
Patient was seen and examined at bedside this morning. Feeling well and hemoglobin has improved overall. Plan to restart Eliquis this evening.
Objective Data
-
Labs:
Laboratory Results
10/02/25
06:10
Hgb 9.2 L
Hct 28.5 L
Vital Signs:
Vital Signs
Temp Pulse Resp BP Pulse Ox
97.6 F 81 18 117/64 92
10/02/25 07:20 10/02/25 08:16 10/02/25 07:20 10/02/25 08:16 10/02/25 08:12
I&O
10/01/25 10/02/25 10/03/25
06:59 06:59 06:59
Intake Total 1490 / 1490 590 / 590
Output Total 1200 / 1200 1900 / 1900
Balance 290 / 290 -1310 / -1310
Review of Systems
-
History Source: Patient
All other systems: Reviewed and negative
Physical Exam
-
General: No Apparent Distress
[2025-10-02] MEDS: FERRLECIT 110 MG IV (14:14)
[2025-10-02 15:33] VITALS: BP 105/72
--- NOTE | 2025-10-02 16:43 | CM ---
Offered VN he requested [facility] .
S Gunn notied of referral via TT,
visiting at bedside.
PLAN Home with [facility]
--- NOTE | 2025-10-02 16:55 | PTCARENOTE ---
Pt AAO x3, BOSS; OOB to chair/ambulates to BR with assist x1/walker, sheila well, no c/o weakness/dizziness. VSS. On room air- pulse ox 94%, no SOB noted. Abd obese, sl firm, sheila PO well. Voids in BR without difficulty; pt instructed to void in
urinal to monitor output. Resting in chair at present, no c/o. Will continue to monitor.
[2025-10-02 23:37] VITALS: BP 107/61
[2025-10-02] MEDS: ELIQUIS 5 MG PO (23:43)
[2025-10-03 06:00] VITALS: BMI 34.8
[2025-10-03 07:00] VITALS: BP 131/75
[2025-10-03 09:16] VITALS: BP 123/71; PULSE 86; O2SAT 95
[2025-10-03 09:17] VITALS: BP 123/71; PULSE 86; O2SAT 95
[2025-10-03] MEDS: OCUVITE SOFTGEL 2 CAP PO (09:19)
[2025-10-03] MEDS: SENOKOT 8.6 MG PO (09:20)
[2025-10-03] MEDS: FLOMAX 0.4 MG PO (09:20)
[2025-10-03] MEDS: PROZAC 20 MG PO (09:20)
[2025-10-03] MEDS: CRESTOR 10 MG PO (09:20)
[2025-10-03] MEDS: VITAMIN B-12 100 MCG PO (09:20)
[2025-10-03] MEDS: LASIX 20 MG PO (09:20)
[2025-10-03] MEDS: PROTONIX IV 40 MG IV (09:21)
[2025-10-03] MEDS: NSS (PRESERVATIVE FREE) 10 ML IV (09:21)
[2025-10-03] MEDS: PERCOCET 5/325 0.5 TABLET PO (09:23)
[2025-10-03] MEDS: ELIQUIS 5 MG PO (09:23)
--- NOTE | 2025-10-03 11:00 | W.DCSUMMARY ---
Discharge Summary
Discharge Data
Date of Admission: 09/28/25
Date of Discharge: 10/03/25
Total time spent discharging patient (in min): 49
-
Pending Results: No
Hospital Course
Mr. Bhatti is a 85-year-old male with a medical history of paroxysmal A-fib (on Eliquis), sick sinus syndrome (dual-chamber Medtronic pacemaker), moderate aortic stenosis, HFpEF, NGHIA, CKD stage II, and anemia of chronic disease (recent baseline
hemoglobin appears to be around 12) who presented with vomiting and exertional dyspnea. Recently he had been following up with cardiology in the outpatient setting for workup of his exertional dyspnea. During this admission he was found to be
acutely anemic with with a hemoglobin of 7.9 and heme positive stools. His Eliquis and aspirin were held. He was started on IV iron supplementation. He also had elevated troponins which remained stable. He was evaluated by cardiology who felt he
was at elevated but acceptable risk for needed endoscopy. He underwent upper and lower endoscopy in 10/01. Upper endoscopy identified recently bleeding duodenal angioectasia which was treated with APC. Colonoscopy identified multiple colonic
polyps which were removed and pathology is pending. He tolerated the procedure well and was ultimately resumed on a regular diet. His hemoglobin trended up and stabilized around 9.5. His nausea and vomiting resolved. His exertional dyspnea
slightly improved. He was restarted on his home dose of Eliquis on the evening of 10/02. His aspirin has been discontinued. He will need outpatient follow-up with cardiology for further evaluation and planned stress test. He has been instructed
to follow-up with his primary care physician for repeat lab work in 1 week to monitor his hemoglobin level. He will be continued on oral iron supplementation and daily pantoprazole. He should also follow-up with the certified tumor registrar for management of
sleep apnea.
General: No Apparent Distress, Comfortable and Conversant
HEENT: NormoCephalic, Moist mucous membranes, Atraumatic
Respiratory: Clear and Non Labored Respirations
Cardiac: S1/S2 and Regular Rhythm; No Rub or Gallop
GI: Soft, Non Tender, Non Distended and Normal Bowel Sounds
Musculoskeletal: No Edema, no deformity
: NO Petty
Neuro: Awake, Alert, Nonfocal/grossly intact
Psych: Calm and Intact Judgment/Insight
Discharge Plan
-
Patient Disposition: Home (Routine Discharge)
Discharge Diagnosis/Procedures: Acute GI bleeding
Blood Work: Complete blood count in 1 week to monitor hemoglobin level
Activity Restrictions/Additional Instructions:
You were admitted for treatment of GI bleeding. You underwent upper and lower endoscopy. On upper endoscopy a recently bleeding blood vessel was found in the first portion of your intestines just past your stomach. That vessel was treated with a
laser to prevent further bleeding. On colonoscopy multiple small polyps were found and removed and pathology is pending. They were benign appearing. You will need to follow-up with gastroenterology after hospital discharge for further management
and to obtain the pathology results for the polyps that were removed. Your blood hemoglobin level stabilized and improved after treatment during endoscopy and with administration of IV iron. You will be continued on oral iron supplementation after
discharge. You will need to follow-up with your primary care physician to repeat labs in approximately 1 week in order to monitor your hemoglobin levels. If they remain stable you can then repeat lab work in 1 month and thereafter as appropriate.
He will also need to follow-up closely with cardiology in the outpatient office for further management and stress testing. He will be continued on Eliquis and your aspirin can be discontinued. If you have further GI bleeding you may need to stop
Eliquis and be evaluated for a Watchman device.
Referrals:
Omar Boyer MD [Active, Gastroenterology]
Yong Gifford DO [Family Provider, Family Practice]
Marti Johnson DO [Active, Cardiology] - 10/24/25 9:00 am
Referral Note: You have an appointment to see Dr. Johnson's physician assistant district attorney, Melanie, at the [place] office on 10/24/2025 at 9 AM. You are then scheduled see Dr. Gutierrez on 12/21/2025. Please call the office if you need to reschedule.
Additional Discharge Medication Instructions: - Continue your usual dose of Eliquis 5 mg twice daily
- Stop taking aspirin
Prescriptions:
New
cyanocobalamin (vitamin B-12) 100 mcg Tablet
100 mcg PO DAILY Qty: 30 0RF
pantoprazole 40 mg tablet,delayed release (DR/EC)
40 mg PO DAILY Qty: 60 0RF
ferrous gluconate 324 mg (37.5 mg iron) tablet
324 mg PO DAILY Qty: 30 0RF
Continued
tamsulosin 0.4 MG capsule
0.4 mg PO DAILY
fluoxetine 20 MG capsule
20 mg PO DAILY
PreserVision AREDS-2 1 EACH capsule
2 ea PO DAILY
oxycodone-acetaminophen 5 MG/325 MG tablet
0.5 tab PO DAILY Qty: 5 0RF
sennosides [senna] 8.6 mg Tablet
8.6 mg PO DAILY
furosemide 20 mg Tablet
20 mg PO DAILY
rosuvastatin 10 mg Tablet
10 mg PO DAILY
Eliquis 5 mg Tablet
5 mg PO BID
Discontinued
aspirin 81 mg Tablet
81 mg PO DAILY
Discharge Orders:
Discharge Patient (As Directed); Ordered 10/03/25
Ordered By: Kaiser Cage
Discharge Date and Time
Print Language: MONGOLIAN
--- NOTE | 2025-10-03 11:44 | W.PN.UPDATE ---
Update Note
Progress Note Update
Eliquis 5 mg twice daily restarted last night. Outpatient dose of aspirin was stopped. Discharge medication instructions adjusted by cardiology. Cardiology follow-up appointment made and outlined on patient's discharge instructions. Patient
stable for discharge from a cardiac standpoint.
--- NOTE | 2025-10-03 11:50 | CM ---
entered order for discharge.
He requested [facility] .
S Gunn notied of referral via TT,
will drive him home.
Pt agrees with dc.
PLAN Home with [facility]
[2025-10-03 12:13] VITALS: BP 98/60
== END 2025-10-03 12:37 | disposition home health service (06) | DRG 378 ==
LOC: 4 EAST ACU 14:58
PROVIDERS: Emergency Medicine; Internal Medicine; Nurse Practitioner Adult Health; Nurse Practitioner Family; Physician Assistant Medical; ADMITTING PHYSICIAN Hospitalist; ATTENDING PHYSICIAN Internal Medicine; CONSULT PHYSICIAN Internal Medicine Cardiovascular Disease; CONSULT PHYSICIAN Internal Medicine Gastroenterology; EMERGENCY PHYSICIAN Emergency Medicine; FAMILY PHYSICIAN Family Medicine
PROC: 0DB68ZX Excision of Stomach, Via Natural or Artificial Opening Endoscopic, Diagnostic (ICD-10-PCS; 2025-10-01)
PROC: 0DB98ZX Excision of Duodenum, Via Natural or Artificial Opening Endoscopic, Diagnostic (ICD-10-PCS; 2025-10-01)
PROC: 0DBH8ZX Excision of Cecum, Via Natural or Artificial Opening Endoscopic, Diagnostic (ICD-10-PCS; 2025-10-01)
PROC: 0W3P8ZZ Control Bleeding in Gastrointestinal Tract, Via Natural or Artificial Opening Endoscopic (ICD-10-PCS; 2025-10-01)
PROC: 0DBL8ZX Excision of Transverse Colon, Via Natural or Artificial Opening Endoscopic, Diagnostic (ICD-10-PCS; 2025-10-01)
PROC: 0DBK8ZX Excision of Ascending Colon, Via Natural or Artificial Opening Endoscopic, Diagnostic (ICD-10-PCS; 2025-10-01)
PROC: 0DB48ZX Excision of Esophagogastric Junction, Via Natural or Artificial Opening Endoscopic, Diagnostic (ICD-10-PCS; 2025-10-01)
PROC: 0DB58ZX Excision of Esophagus, Via Natural or Artificial Opening Endoscopic, Diagnostic (ICD-10-PCS; 2025-10-01)
DX: K31.811 Angiodysplasia of stomach and duodenum with bleeding (principal); I50.32 Chronic diastolic (congestive) heart failure; I5A Non-ischemic myocardial injury (non-traumatic); J98.11 Atelectasis; Z66 Do not resuscitate; K29.70 Gastritis, unspecified, without bleeding; D63.8 Anemia in other chronic diseases classified elsewhere; I48.0 Paroxysmal atrial fibrillation; E11.36 Type 2 diabetes mellitus with diabetic cataract; N18.2 Chronic kidney disease, stage 2 (mild); E11.22 Type 2 diabetes mellitus with diabetic chronic kidney disease; N40.0 Benign prostatic hyperplasia without lower urinary tract symptoms; I49.5 Sick sinus syndrome; E66.9 Obesity, unspecified; Z68.34 Body mass index [BMI] 34.0-34.9, adult; Z79.01 Long term (current) use of anticoagulants; K44.9 Diaphragmatic hernia without obstruction or gangrene; D50.9 Iron deficiency anemia, unspecified; D12.0 Benign neoplasm of cecum; D12.2 Benign neoplasm of ascending colon; D12.3 Benign neoplasm of transverse colon; K22.89 Other specified disease of esophagus; K64.8 Other hemorrhoids; Z79.82 Long term (current) use of aspirin; Z79.899 Other long term (current) drug therapy; Z87.891 Personal history of nicotine dependence
CPT/HCPCS: 71046; 74177; 80048; 80053; 81003; 81015; 82607; 82728; 82746; 83540; 83550; 83690; 83880; 84484; 85014; 85018; 85025; 85027; 85610; 86850; 86900; 86901; 88305; 88313; 88342; 93005; 93288; 96361; 96374; 96375; 97116; 97162; 97166; 97535; 99285; J2916; Q9967

== ENCOUNTER 2025-10-09 14:01 | Observation (INO) | payer OTHER, SELFPAY ==
[2025-10-09] VITALS (11 sets, daily range): BP systolic 100–138; BP diastolic 61–81; BMI 34.6
--- NOTE | 2025-10-09 11:16 | ED.GENMED ---
History of Present Illness
General
Chief Complaint: Abdominal Symptoms
Time Seen by Provider: 10/09/25 11:16
History of Present Illness
History of Present Illness:
FOCUSED PAST MEDICAL HISTORY
- A-fib, moderate aortic stenosis, CAD, sick sinus syndrome with dual-chamber Medtronic pacemaker, HFpEF, CKD stage II
REVIEW OF OLD RECORDS
- Patient was admitted with vomiting and exertional dyspnea from 09/28/2025 through 10/03/2025. His hemoglobin was 7.9 and had heme positive stools and Eliquis and aspirin were held. He was placed on IV iron. He had upper and lower endoscopy 1215
that showed recently bleeding duodenal angioectasia and had APC, multiple colonic polyps were removed. His hemoglobin trended up and stabilized at 9.5. Nausea and vomiting resolved.
- CAT scan abdomen pelvis 09/27/2025 showed no bowel obstruction
Note:
CHIEF COMPLAINT(S)
Nausea with dry heaves.
HISTORY OF PRESENT ILLNESS
The patient is an 85-year-old male who presents with nausea and dry heaves. He reports no pain or difficulty breathing currently. The symptoms began similarly to his previous visit, where he experienced nausea and vomiting. At that time, he
underwent an endoscopy, which revealed angioectasia, and treatment including argon plasma coagulation (APC) and polyp removal was performed. The patient recalls having some shortness of breath during that period but denies experiencing it currently.
No abdominal pain is reported, even upon palpation. There is no vomiting today, only production of phlegm with dry heaving. The patient feels generally unwell and is requesting relief for nausea.
EXTERNAL RECORDS REVIEWED
According to previous records, the patient had an upper gastrointestinal endoscopy which showed angioectasia, treated with APC, and polyp removal in the esophagus.
PHYSICAL EXAM
General: Alert, moderate distress related to ongoing dry heaves, generally unwell in appearance.
Skin: Warm, dry.
Head: Normocephalic, atraumatic.
Neck: Supple, trachea midline.
Eye Ears, nose, mouth and throat: Oral mucosa moist. Entropions bilaterally
Cardiovascular: Normal peripheral perfusion, No edema.
Respiratory: Respirations are non-labored.
Gastrointestinal: Abdomen is soft, non-tender upon examination.
Back: Normal range of motion, normal alignment.
Musculoskeletal: Normal range of motion, normal strength.
Neurological: Alert and oriented to person, place, time, and situation, No focal neurological deficit observed.
Psychiatric: Cooperative, appropriate mood & affect.
PROBLEM LIST
Acute:
- Nausea with dry heaves
PLAN
Administer intravenous fluids and antiemetic medication to address the nausea.
DIFFERENTIAL DIAGNOSIS
The Differential Diagnosis includes, in no particular order and is not limited to:
1. Gastritis
2. Gastroesophageal reflux disease (GERD)
3. Viral gastroenteritis
4. Peptic ulcer disease
5. Esophageal motility disorder
6. Medication side effect
7. Esophageal stricture
8. Intestinal obstruction
9. Dehydration secondary to inadequate intake
10. Aspiration pneumonia
LABS
- Hemoglobin 9.0, BUN 38 was not elevated significantly last admission, glucose 295
SUMMARY OF ENCOUNTER
The patient, an 85-year-old male, presented with nausea and dry heaves. The treatment included administering intravenous fluids and an antiemetic for nausea, resulting in some improvement in symptoms. A review of the patients records showed a
previously normal CT scan and improved hemoglobin levels compared to the last visit. The patient is currently on apixaban (Eliquis) and has been receiving iron supplementation. The patient reported difficulty obtaining a special form of vitamin B12.
During assessment, the administration of fluids and antiemetic medication improved his condition. He was found to be slightly anemic, but not to the extent of requiring a blood transfusion. The stool was tested positive for blood, likely due to the
patients iron supplementation. The patients ability to tolerate oral fluids was assessed before discussing with specialists.
DISPOSITION
The patient�s disposition is discussed with the hospitalist and GI specialist to determine further management.
ASSESSMENT
The patient presents with nausea, anemia, possible gastrointestinal bleeding (as indicated by positive stool test for blood), and an ongoing iron supplementation regimen. Discussions with the hospitalist and GI specialist were planned for further
management.
EMERGENCY TREATMENTS ADMINISTERED
Intravenous fluids and antiemetic medication were administered for nausea relief.
MANAGEMENT OF THE PATIENTS CARE WAS DISCUSSED WITH
The management plan was paused for discussion with the hospitalist and agriculture professor to address ongoing concerns about gastrointestinal bleeding and anemia.
PLAN
Evaluate the patients ability to tolerate oral intake. Management discussions with the hospitalist and GI specialists will assess the need for further intervention or adjustment in the patients management plan, given the ongoing positive test for
blood in the stool and iron supplementation effects.
INDEPENDENT REVIEW OF LABS AND INTERPRETATION OF TESTS
My independent review of hemoglobin indicates improvement from previous levels, yet the presence of blood in the stool was confirmed despite ongoing iron supplementation, which complicates the interpretation.
PATIENT EDUCATION AND COUNSELING
The patient was informed about the effects of iron supplementation, which can affect stool color. It was also explained that despite some signs of blood in the stool, his current hemoglobin levels do not require an urgent blood transfusion. The
importance of completing his medications as prescribed and following up on vitamin B12 supplementation was emphasized.
MEDICATION RECONCILIATION
1. Apixaban (Eliquis) for anticoagulation.
2. Iron supplementation for anemia.
3. Prescribed antiemetic medication for nausea relief.
MEDICAL DECISION MAKING
-Number and Complexity of Problems Addressed: Chronic conditions affecting care include anemia and ongoing gastrointestinal concerns connected to iron supplementation.
-Data:
Category 1: Tests and documents reviewed, including records of prior CT scan and hemoglobin levels.
Category 2: Assessment requires input from the hospitalist and GI specialist to evaluate further management of the gastrointestinal bleeding and anemia.
Category 3: Immediate evaluation and discussion with hospitalist and GI specialist are pending to decide on the patients ongoing treatment plan.
DIAGNOSIS
1. Nausea with dry heaves - R11.0
2. Anemia, unspecified - D64.9
3. Gastrointestinal hemorrhage, unspecified - K92.2
UPDATE
- Patient has briskly heme positive dark brown stool
- He has started taking iron supplementation orally
- Severe nausea and dry heaves upon arrival
- Somewhat improved after Zofran, fluids, Pepcid, Protonix
- Hemoglobin improved compared to prior however he did not do very well with p.o. challenge
- He does not feel comfortable going home
- I notified hospitalist and GI
Past History
Past History
ED Past Medical History: HTN, Hypercholesterolemia (BPH, renal calculi, arthritis, degenerative joint disease, osteoarthritis, chronic low back pain,) and Other (Kidney stones)
ED Past Surgical History: Appendectomy, Orthopedic (Right total knee) and Other (Bilateral cataracts, kidney stone extraction)
Social History
Tobacco: Non-smoker
Alcohol: Occasional
Drug: None
Personal:
Living: with family
Employment: Employed
Family History
Family History: Other (nc)
Phy Exam
Physical Exam
Physical Exam:
See HPI
Course
Orders/Labs/Results
Orders:
Orders
10/09/25 11:24
0.9% Sodium Chloride 500 ml [Nss] 500 ml IV BOLUS
Famotidine [Pepcid] 20 mg IV NOW STA
Ondansetron Injectable [Zofran] 4 mg IV NOW STA
Pantoprazole [Protonix IV] 80 mg IV NOW STA
10/09/25 11:27
Type+Screen Urgent
Complete Blood Count/With Diff Urgent
Comprehensive Metabolic Panel Urgent
Lipase Urgent
10/09/25 13:46
Admit/Transfer Patient As Directed
Co-Sign Provider:
Level of Care: Observation services
Assign to:: Telemetry
Physician / Group: Dixon
Diagnosis: Persistent Nausea
Reason for Telemetry: Arrhythmia
Date to Stop Telemetry: 10/12/25
Time to Stop Telemetry: 11:00
10/09/25 13:47
Code Status As Directed
Resuscitation Status: Do not resuscitate
Reached after discussion with pt or family/Healthcare POA: Yes
DNR Bracelet Application ONCE
PRN Pain Medication Management As Directed
May give lesser potent ordered pain med per pt: Yes
preference::
Protocol:: Medication orders for pain may be administered in a
manner that supports deferring to patient preference
when the pt is:
- Requesting an ordered lesser potent pain medication.
Least to most potent pain medications are defined
as: acetaminophen < NSAID < tramadol < opioids
(morphine, oxycodone, hydromorphone).
- Requesting a lesser dose of the same medication IF
ORDERED.
- Requesting a less intrusive route of administration
if both routes are prescribed by the provider (PO <
IV).
Abnormal Lab Results
10/09/25
11:27
RBC 2.92 L 10^6/uL
(4.70-6.10)
Hgb 9.0 L g/dL
(13.0-18.0)
Hct 28.3 L %
(39.0-52.0)
MCV 96.9 H fL
(80.0-94.0)
MCHC 31.8 L g/dL
(33.0-37.0)
RDW 16.1 H %
(11.5-14.5)
MPV 11.0 H fL
(7.4-10.4)
Absolute Lymphs (auto) 1.1 L 10^3/uL
(1.2-3.4)
Immature Gran % 0.6 H %
(0-0.5)
Monocytes % 11.7 H %
(1.7-9.3)
BUN 30 H mg/dl
(9-20)
Glucose 295 H mg/dl
(70-99)
10/09/25 11:27
10/09/25 11:27
Vital Signs
Initial and Last Documented VS:
Initial Vital Signs
Pulse Resp BP Pulse Ox
95 20 138/65 95
10/09/25 11:12 10/09/25 11:12 10/09/25 11:12 10/09/25 11:12
Last Documented Vital Signs
Pulse Resp BP Pulse Ox
91 20 119/75 92
10/09/25 14:00 10/09/25 13:00 10/09/25 14:00 10/09/25 13:15
*Pulse Oximetry
SaO2: 95
Oxygen Mode of Delivery: Room air
Patient hypoxic: no
*Critical Care Note
Total Time (30-74mins, 75-104mins- exclusive of procedures): Not Applicable
ED Attending Note
-
Portions of this chart may have been created with voice recognition software.� Occasional wrong word or��sound alike� substitutions may have occurred due to the inherent limitations of voice recognition software.
Discharge Plan
Departure
Patient Disposition: Admit
Date of Disposition: 10/09/25
Time of Disposition: 13:21
Presentation/result/management discussed w/ accepting MD/DO: Hospitalist
Discharge Problem:
GI bleed
Interventions
Interventions:
*General Assessment Last Done: 10/09/25 11:12
*Neglect/Abuse Screening Last Done: 10/09/25 11:12
NZ-Estzep-[id number] Assessment Last Done: 10/09/25 11:25
[2025-10-09] MEDS: NSS 500 IV (11:28)
[2025-10-09] MEDS: PEPCID 20 MG IV (11:29)
[2025-10-09] MEDS: PROTONIX IV 80 MG IV (11:29)
[2025-10-09] MEDS: ZOFRAN 4 MG IV (11:29)
[2025-10-09 11:46] LABS: Hematocrit 28.3 % (39.0-52.0); Hemoglobin 9.0 g/dL (13.0-18.0); Mean Corp Hgb Conc. 31.8 g/dL (33.0-37.0); Mean Corpuscular Volume 96.9 fL (80.0-94.0); Nucleated Red Blood Cells % 0 % (-); Platelet Count 149 10^3/uL (130-400); Red Cell Dist. Width 16.1 % (11.5-14.5)
[2025-10-09 12:02] LABS: ALT (SGPT) 14 U/L (0-50); AST (SGOT) 18 U/L (17-59); Albumin 4.1 g/dl (3.5-5.0); Alkaline Phosphatase 64 U/L (38-126); Blood Urea Nitrogen 30 mg/dl (9-20); Calcium 9.0 mg/dl (8.4-10.2); Carbon Dioxide 22 mmol/L (22-30); Chloride 105 mmol/L (98-107); Glucose 295 mg/dl (70-99); Lipase 153 U/L (23-300); Potassium 4.1 mmol/L (3.5-5.1); Sodium 137 mmol/L (135-145); Total Protein 7.0 g/dl (6.3-8.2); eGFR 58.53
--- NOTE | 2025-10-09 13:25 | HPS.HSE ---
Addendum entered and electronically signed by Rafael Metcalf MD 10/09/25 15:10:
I saw and examined the patient.
The ENGINEERING DOCUMENTATION SPECIALIST or PA's note was reviewed and I agree with the note.
Comment:
85M SSS s/p pacemaker, atrial fibrillation Eliquis, CHF, DM, CKD and recent GI bleed secondary to angiectasias p/w nausea/dry heaves. Pt reported feeling fine morning following juice and cereal for breakfast. He later developed acute onset of
significant nausea and dry heaves. Denied vomiting, abd pain, diarrhea, constipation, or fever. Labs and vitals unremarkable.
Physical Exam
General: No acute distress, appears comfortable
HEENT: Anicteric and Moist mucous membranes
Respiratory: Clear and Non Labored Respirations, low dose oxygen supplementation
Cardiac: S1/S2, Regular Rhythm and Murmur
GI: Soft, Non Tender, Non Distended and Normal Bowel Sounds
Musculoskeletal: No Clubbing, No Cyanosis, No Edema
Skin: Warm and Dry
Neuro: AOx3 conversant coherent
Psych: Calm
Sick Sinus Syndrome s/p Pacemaker
Paroxysmal Atrial Fibrillation
Chronic HFpEF
Valvular Heart Disease: Moderate Aortic Stenosis. Mild Mitral stenosis
Essential Hypertension
Hyperlipidemia
Diabetes Mellitus, Type II
CKD Stage III
Anemia of Chronic Disease
Asthma
Obstructive Sleep Apnea
Chronic Back Pain
Chronic Right Foot Drop
BPH
Nephrolithiasis
Left Hip Replacement
Bilateral Knee Replacements
Appendectomy
-tele observation
-clear liquids and advance diet as tolerated
-Continue ondansetron PRN
-monitor H&H
-cont PPI
-Eliquis
-Glycemic Control
I spent a total of 75 minutes with the patient or on the floor. More than 50% of this time involved counseling and coordination of care.
Original Note:
Family Physician
-
Family Physician: NOT KNOW UNKNOWN - PT DOES
Chief Complaint
-
Nausea and Dry Heaves
History of Present Illness
Patient is an 85 y/o male past medical history of SSS s/p pacemaker, atrial fibrillation, CHF, DM, CKD and recent GI bleed secondary to angiectasias who presents with nausea and dry heaves. Patient reports he felt fine this morning consuming juice
and cereal for breakfast. Around 9:30 he developed acute onset of significant nausea and dry heaves. He denies any vomiting, abdominal pain or diarrhea. He denies fevers. He wonders if he had an episode of dizziness this morning that may have
triggered his symptoms, but denies any dizziness at present time.
Medical History
Past Medical History
Past Medical History: Reports Other
Additional Past Medical History:
Sick Sinus Syndrome s/p Pacemaker
Paroxysmal Atrial Fibrillation
Chronic HFpEF
Valvular Heart Disease: Moderate Aortic Stenosis. Mild Mitral stenosis
Essential Hypertension
Hyperlipidemia
Diabetes Mellitus, Type II
CKD Stage III
Anemia of Chronic Disease
Asthma
Obstructive Sleep Apnea
Chronic Back Pain
Chronic Right Foot Drop
BPH
Nephrolithiasis
Past Surgical History: Reports Other
Additional Past Surgical History:
Left Hip Replacement
Bilateral Knee Replacements
Appendectomy
Social History
Tobacco: Non-smoker
Alcohol: Other (Very Rare)
Family History
Family History: Not pertinent
Allergies / Home Medications
Allergies reflects when Allergies were last updated in [employer].
Home Medications with original date entered in [employer]
Allergy/Medication List:
Allergies
Allergy/AdvReac Type Severity Reaction Status Date / Time
No Known Allergies Allergy Verified 10/09/25 11:14
Home Medications
tamsulosin 0.4 mg capsule 0.4 mg PO DAILY Urinary issue 11/24/18
fluoxetine 20 mg capsule 20 mg PO DAILY depression/anxiety 06/13/21
vit C 250 mg-vit E 90 mg-zinc 40 mg-copper 1 [id number] capsule (PreserVision AREDS-2) 2 ea PO DAILY Supplement 06/13/21
oxycodone-acetaminophen 5 mg-325 mg tablet 0.5 tab PO DAILY pain #5 tabs 10/13/24
apixaban 5 mg tablet (Eliquis) 5 mg PO BID Blood Clot Prevention/Tx 09/27/25
furosemide 20 mg tablet 20 mg PO DAILY Fluid Retention/Swelling 09/27/25
rosuvastatin 10 mg tablet 10 mg PO DAILY High Cholesterol 09/27/25
sennosides 8.6 mg tablet (senna) 8.6 mg PO DAILY Constipation 09/27/25
cyanocobalamin (vitamin B-12) 100 mcg tablet 100 mcg PO DAILY #30 tabs 10/03/25
ferrous gluconate 324 mg (37.5 mg iron) tablet 324 mg PO DAILY #30 tabs 10/03/25
pantoprazole 40 mg tablet,delayed release 40 mg PO DAILY #60 tabs 10/03/25
Review of Systems
-
A 12 point ROS was completed and negative except as noted: Yes
Constitutional: Denies Fever
Respiratory: Denies Cough or Trouble Breathing
Cardiac: Denies Chest Pain or Palpitations
Abdomen/GI: Reports See HPI
Physical Exam
Vital Signs
Vital Signs
Pulse Resp BP Pulse Ox
95 20 138/65 95
10/09/25 11:12 10/09/25 11:12 10/09/25 11:12 10/09/25 11:18
Physical Exam
General: Comfortable and Conversant
HEENT: Anicteric and Moist mucous membranes
Respiratory: Clear and Non Labored Respirations
Cardiac: S1/S2, Regular Rhythm and Murmur
GI: Soft, Non Tender, Non Distended and Normal Bowel Sounds
Rectal: Hem Positive (Per ED Provider)
Musculoskeletal: No Clubbing and No Cyanosis
Skin: Warm and Dry
Neuro: Awake, Alert, Oriented and Nonfocal/grossly intact
Psych: Calm
Laboratory Results
-
10/09/25 11:27
10/09/25 11:27
Laboratory Results
Total Bilirubin 0.9 mg/dl (0.2-1.3) 10/09/25 11:27
AST 18 U/L (17-59) 10/09/25 11:27
ALT 14 U/L (0-50) 10/09/25 11:27
Alkaline Phosphatase 64 U/L (38-126) 10/09/25 11:27
Lipase 153 U/L (23-300) 10/09/25 11:27
Data Reviewed
-
Lab Data: Labs Reviewed by me
Old Records: Reviewed
Impression/Plan
-
Persistent Nausea / Dry Heaves
-Allow clear liquids and advance diet as tolerated
-Continue ondansetron PRN
Recent GI Bleed secondary to bleeding duodenal angioectasia treated with APC
-Suspect persistent heme-positive stools is residual from his GI bleed last week
-Hgb stable from discharge last week
-Continue to trend Hgb
-Continue Protonix
Sick Sinus Syndrome s/p Pacemaker
Paroxysmal Atrial Fibrillation
-Continue Eliquis for anticoagulation
Chronic HFpEF
Valvular Heart Disease: Moderate Aortic Stenosis. Mild Mitral stenosis
-Hold Lasix until able to tolerate diet
Diabetes Mellitus, Type II
-Monitor sugars and continue coverage insulin
Hyperlipidemia
-Continue rosuvastatin
CKD Stage III
-Creatinine at baseline
BPH
-Continue tamsulosin
DVT proph: Eliquis
Code Status: DNR
[2025-10-09] MEDS: COMPAZINE 5 MG IV (14:37)
--- NOTE | 2025-10-09 17:13 | EDCM ---
Reviewed chart and met with pt and TRACY bedside in ED. Lives with his in [address], [address], has first floor half bath, full flight to second floor bedroom and full bath.
Independent in ADLs, personal care and ambulation at baseline, has been using RW since last admission, also has cane. Still drives.
PMH includes Afib, Aortic stenosis, CAD, Sick Sinus Syndrome, Pacemaker, HTN, HLD, NIDDM, DJD, Kidney stones, HF and CKD
JC reviewed and signed, copy left with pt.
Confirms prescription coverage.
Hx [facility], declined last admission, also hx [place]
PCP: Yong Gifford
Pharmacy: [facility]
Anticipate discharge home, CM will continue to follow for all discharge planning needs.
[2025-10-09 18:00] LABS: Glucose - Point of Care 221 mg/dl (70-99)
[2025-10-09] MEDS: NOVOLOG FLEXPEN-LOW RESISTANCE 2 UNITS SC (18:20)
--- NOTE | 2025-10-09 18:34 | PTCARENOTE ---
pt received as admit from ED. AAOx3. Stand by assist with ambulation. V-paced on tele, HRs 80s. VSS. Pt denies nausea at this time. tolerating clears. Pt resting in bed, call quiroga in reach. Family member at bedside.
[2025-10-09 21:25] LABS: Glucose - Point of Care 225 mg/dl (70-99)
[2025-10-09] MEDS: ELIQUIS 5 MG PO (21:32)
[2025-10-09] MEDS: FLOMAX 0.4 MG PO (21:33)
[2025-10-10 03:26] VITALS: BP 105/60
[2025-10-10 06:00] VITALS: BMI 34.7
--- NOTE | 2025-10-10 07:38 | W.PN.HOSP.TC ---
Today's Communication/Plan
-
discharge
Assessment / Plan
Assessment / Plan
Physical Exam
General: No acute distress, appears comfortable
HEENT: Anicteric and Moist mucous membranes
Respiratory: Clear and Non Labored Respirations, low dose oxygen supplementation
Cardiac: S1/S2, Regular Rhythm and Murmur
GI: Soft, Non Tender, Non Distended and Normal Bowel Sounds
Musculoskeletal: No Clubbing, No Cyanosis, No Edema
Skin: Warm and Dry
Neuro: AOx3 conversant coherent
Psych: Calm
85M SSS s/p pacemaker, atrial fibrillation Eliquis, CHF, DM, CKD and recent GI bleed secondary to angiectasias p/w nausea/dry heaves. Pt reported feeling fine morning following juice and cereal for breakfast. He later developed acute onset of
significant nausea and dry heaves. Denied vomiting, abd pain, diarrhea, constipation, or fever. Labs and vitals unremarkable. Symptoms since completely resolved, tolerating diet. Noted symptoms started after drinking V8 that smelled funny
(unsure if product was or not)- counseled to mindful of expiration dates with regards to food products.
Persistent Nausea / Dry Heaves
Possible Food Poisoning since resolved
-Tolerating diet. Medically stable for discharge home with outpatient follow up recommendations
Recent GI Bleed secondary to bleeding duodenal angioectasia treated with APC
-Suspect persistent heme-positive stools is residual from his GI bleed last week
-Hgb stable from discharge last week
-Continue to trend Hgb
-Continue Protonix
Sick Sinus Syndrome s/p Pacemaker
Paroxysmal Atrial Fibrillation
-Continue Eliquis for anticoagulation
Chronic HFpEF
Valvular Heart Disease: Moderate Aortic Stenosis. Mild Mitral stenosis
-Hold Lasix until able to tolerate diet
Diabetes Mellitus, Type II
-Monitor sugars and continue coverage insulin
Hyperlipidemia
-Continue rosuvastatin
CKD Stage III
-Creatinine at baseline
BPH
-Continue tamsulosin
DVT proph: Eliquis
Code Status: DNR
Medically stable for discharge home with outpatient follow up recommendations.
Total Time Preparing Discharge ___40____ minutes including examination of the patient, summary of the hospital stay, instructions for continuing care to all relevant caregivers; and preparation of discharge records, prescriptions, and referral
forms if necessary.
Anticipated Discharge: Today
Subjective/Interval History
-
Date of Service: October 10, 2025
seen and examined at bedside in no acute distress. Overall reports feeling well. Symptoms completely resolved, tolerating diet. Notes symptoms may have started after drinking V8 that smelled funny (unsure if product was or not).
Objective Data
-
Labs:
Laboratory Results
10/10/25
06:52
WBC Pending
Hgb Pending
Hct Pending
Plt Count Pending
Sodium Pending
Potassium Pending
Chloride Pending
Carbon Dioxide Pending
BUN Pending
Creatinine Pending
Glucose Pending
Calcium Pending
Vital Signs:
Vital Signs
Temp Pulse Resp BP Pulse Ox
98.5 F 85 14 105/60 95
10/10/25 03:26 10/10/25 03:26 10/10/25 03:26 10/10/25 03:26 10/10/25 03:26
I&O
10/09/25 10/10/25 10/11/25
06:59 06:59 06:59
Intake Total 480 / 480
Output Total 950 / 950
Balance -470 / -470
[2025-10-10 07:45] VITALS: BP 93/55
[2025-10-10 07:53] LABS: Hematocrit 27.4 % (39.0-52.0); Hemoglobin 8.6 g/dL (13.0-18.0); Mean Corp Hgb Conc. 31.4 g/dL (33.0-37.0); Mean Corpuscular Volume 100.7 fL (80.0-94.0); Platelet Count 133 10^3/uL (130-400); Red Cell Dist. Width 16.1 % (11.5-14.5)
[2025-10-10 07:54] LABS: Glucose - Point of Care 144 mg/dl (70-99)
[2025-10-10 08:10] LABS: Blood Urea Nitrogen 21 mg/dl (9-20); Calcium 8.9 mg/dl (8.4-10.2); Carbon Dioxide 27 mmol/L (22-30); Chloride 103 mmol/L (98-107); Estimated Creatinine Clearance 52 ml/min; Glucose 134 mg/dl (70-99); Potassium 4.1 mmol/L (3.5-5.1); Sodium 135 mmol/L (135-145); eGFR > 60.00
[2025-10-10] MEDS: SENOKOT 8.6 MG PO (08:29)
[2025-10-10] MEDS: NOVOLOG FLEXPEN-LOW RESISTANCE SC (08:29)
[2025-10-10] MEDS: PROTONIX 40 MG PO (08:29)
[2025-10-10] MEDS: CRESTOR 10 MG PO (08:29)
[2025-10-10] MEDS: PROZAC 20 MG PO (08:29)
[2025-10-10] MEDS: ELIQUIS 5 MG PO (08:30)
[2025-10-10] MEDS: TYLENOL 650 MG PO (08:40)
[2025-10-10 11:05] VITALS: BP 102/58
[2025-10-10 12:20] LABS: Glucose - Point of Care 231 mg/dl (70-99)
--- NOTE | 2025-10-10 13:03 | W.DCSUMMARY ---
Discharge Summary
Discharge Data
Date of Admission: 10/09/25
Date of Discharge: 10/10/25
-
Pending Results: No
Hospital Course
85M SSS s/p pacemaker, atrial fibrillation Eliquis, CHF, DM, CKD and recent GI bleed secondary to angiectasias p/w nausea/dry heaves. Pt reported feeling fine morning following juice and cereal for breakfast. He later developed acute onset of
significant nausea and dry heaves. Denied vomiting, abd pain, diarrhea, constipation, or fever. Labs and vitals unremarkable. Symptoms since completely resolved, tolerating diet. Noted symptoms started after drinking V8 that smelled funny
(unsure if product was or not)- counseled to be mindful of expiration dates with regards to food products. Medically stable patient was discharged home with outpatient follow up recommendations.
Discharge Plan
-
Patient Disposition: Home (Routine Discharge)
Discharge Diagnosis/Procedures: Severe Nausea possible Food Poisoning since resolved
Vitamin B12 deficiency
Chronic Anemia
Condition: Fair
Diet: Diabetic, Carb Controlled
Activity: As tolerated
Driving Restrictions: As prior to admission
Bathing Restrictions: None
Blood Work: Follow up with primary care provider for repeat CBC in 1 week of discharge.
Repeat Vitamin B12 level with primary care provider in 1 month of discharge.
Activity Restrictions/Additional Instructions:
Follow up with primary care provider in 1 week of discharge.
Supplementation prescribed for Vitamin B12 deficiency.
Please take medications as prescribed/recommended and follow up with primary care provider and/or other healthcare provider involved in your care for refills and/of further adjustment to your medication regimen as necessary.
Referrals:
Yong Gifford DO [Family Provider, Family Practice] - in one week
Prescriptions:
New
cyanocobalamin (vitamin B-12) 500 mcg Tablet
1,000 mcg PO DAILY 30 Days Qty: 60 0RF
Continued
tamsulosin 0.4 MG capsule
0.4 mg PO HS
fluoxetine 20 MG capsule
20 mg PO DAILY
sennosides [senna] 8.6 mg Tablet
8.6 mg PO DAILY
furosemide 20 mg Tablet
20 mg PO DAILY
rosuvastatin 10 mg Tablet
10 mg PO DAILY
Eliquis 5 mg Tablet
5 mg PO BID
oxycodone-acetaminophen 5-325 mg Tablet
0.5 tab PO DAILY
PreserVision AREDS-2 250-90-40-1 mg Capsule
2 cap PO DAILY
pantoprazole 40 mg tablet,delayed release (DR/EC)
40 mg PO DAILY
ferrous gluconate 324 mg (37.5 mg iron) tablet
324 mg PO DAILY
Discontinued
B12
100 mcg PO DAILY
Discharge Orders:
Discharge Patient (As Directed); Ordered 10/10/25
Ordered By: Rafael Metcalf
Discharge Date and Time
Discharge Date/Time: 10/10/25 14:20
Print Language: CZECH
[2025-10-10] MEDS: NOVOLOG FLEXPEN-LOW RESISTANCE 300 UNITS SC (13:24)
[2025-10-10] MEDS: VITAMIN B-12 1000 MCG PO (13:26)
[2025-10-10] MEDS: FEOSOL 325 MG PO (13:27)
--- NOTE | 2025-10-10 14:51 | CM ---
MD entered order for discharge.
Family drove pt home.
PLAN Home no needs
== END 2025-10-10 14:20 | disposition home or self-care (01) ==
LOC: 4 EAST ACU 14:01
PROVIDERS: Physician Assistant Medical; ADMITTING PHYSICIAN Internal Medicine; EMERGENCY PHYSICIAN Emergency Medicine; FAMILY PHYSICIAN Family Medicine
DX: R11.0 Nausea (principal); R10.9 Unspecified abdominal pain; I25.10 Atherosclerotic heart disease of native coronary artery without angina pectoris; I35.0 Nonrheumatic aortic (valve) stenosis; I48.0 Paroxysmal atrial fibrillation; N18.30 Chronic kidney disease, stage 3 unspecified; I13.0 Hypertensive heart and chronic kidney disease with heart failure and stage 1 through stage 4 chronic kidney disease, or unspecified chronic kidney disease; I50.32 Chronic diastolic (congestive) heart failure; D63.1 Anemia in chronic kidney disease; K92.2 Gastrointestinal hemorrhage, unspecified; M21.371 Foot drop, right foot; M19.90 Unspecified osteoarthritis, unspecified site; G89.29 Other chronic pain; E11.22 Type 2 diabetes mellitus with diabetic chronic kidney disease; G47.33 Obstructive sleep apnea (adult) (pediatric); E53.8 Deficiency of other specified B group vitamins; J45.909 Unspecified asthma, uncomplicated; N40.0 Benign prostatic hyperplasia without lower urinary tract symptoms; E78.00 Pure hypercholesterolemia, unspecified; Z66 Do not resuscitate; Z95.0 Presence of cardiac pacemaker; Z87.442 Personal history of urinary calculi; Z90.49 Acquired absence of other specified parts of digestive tract; Z96.653 Presence of artificial knee joint, bilateral; Z96.642 Presence of left artificial hip joint; Z79.891 Long term (current) use of opiate analgesic; Z79.01 Long term (current) use of anticoagulants; Z86.0100 Personal history of colon polyps, unspecified
CPT/HCPCS: 80048; 80053; 82962; 83690; 85025; 85027; 86850; 86900; 86901; 93005; 96374; 96375; 99284; G0378